=== PATIENT | female | born 1955 | race Caucasian/White ===

== ENCOUNTER 2016-03-05 13:57 | Emergency (ER) | payer MEDICAID ==
[2016-03-05] MEDS ORDERED: LIDOCAINE 1% INJ-PF (10 MG/ML) 30 ML SDV INJ ONE (15:29)
[2016-03-05] MEDS ORDERED: CEFAZOLIN 1 GM/D5W RTU 50 ML IV ONE (15:31)
[2016-03-05] MEDS ORDERED: OXYCODONE HCL SR 10 MG TABLET PO ONE (15:31)
--- NOTE | 2016-03-05 15:31 | ER Document Report ---
ED General - General Chief Complaint: Laceration Stated Complaint: LEG PAIN Notes: This is a 61-year-old female with history of diabetes, chronic venous stasis, pulmonary hypertension on oxygen who presents with a large laceration left anterior leg. Patient states she was getting down out of the truck and cut her leg on the car door. She was cut to her pain leg. She denies any other injuries. Last tetanus is unknown. She complains of throbbing pain. TRAVEL OUTSIDE OF THE [place] IN LAST 30 DAYS: No - Related Data Allergies/Adverse Reactions: Sulfa (Sulfonamide Antibiotics) Allergy (Verified 02/18/16 03:50) Past Medical History - Social History Smoking Status: Current Every Day Smoker Frequency of alcohol use: None Drug Abuse: None Lives with: Family Family History: COPD, Hypertension - Past Medical History Cardiac Medical History: Reports: Hx Congestive Heart Failure, Hx Hypertension Pulmonary Medical History: Reports: Hx COPD - O2 dependent COPD Endocrine Medical History: Reports: Hx Diabetes Mellitus Type 2 Musculoskeltal Medical History: Reports Hx Gout Psychiatric Medical History: Reports: Hx Depression Past Surgical History: Reports: Hx Section, Hx Hysterectomy, Hx Orthopedic Surgery - Bilateral carpal tunnel surgery, back surgery., Hx Vascular Surgery - Bilateral carotid endarterectomies - Immunizations Hx Diphtheria, Pertussis, Tetanus Vaccination: Yes Review of Systems - Review of Systems Constitutional: denies: Fever EENT: denies: Throat pain Cardiovascular: denies: Chest pain, Syncope Respiratory: denies: Short of breath Genitourinary: No symptoms reported Musculoskeletal: Leg swelling Skin: Rash Neurological/Psychological: denies: Numbness, Suicidal ideation, Tingling Physical Exam - Vital signs Vitals: Resp 16 03/05/16 14:03 - General General appearance: Appears well, Alert In distress: None - HEENT Head: Normocephalic, Atraumatic Conjunctiva: Normal - Respiratory Respiratory status: No respiratory distress Breath sounds: Normal - Cardiovascular Rhythm: Regular - Abdominal Inspection: Normal - Extremities General upper extremity: Normal inspection General lower extremity: Edema - The patient has significant erythema and brawny edema of bilateral lower legs, not involving the feet, there is mild warmth, there is a small amount of weeping of clear fluid which is expressed with gentle pressure on the legs. Patient states these findings are chronic for her. There are 2 large lacerations on the anterior lower left leg as described below Foot: Normal - Neurological Neuro grossly intact: Yes Orientation: AAOx4 Sensory: Normal - Skin Skin Temperature: Warm Skin Moisture: Dry Notes: There are 2 large lacerations on the left anterior lower leg totaling 8 cm in length. Both are deep and gaping. There is no exposed bony material. There is exposed subcutaneous tissue. There is no active bleeding but there is a small amount of oozing and weeping around the wound edges. Course - Re-evaluation Re-evalutation: 03/05/16 20:05 Patient unfortunately is a diabetic very poor circulation and chronically erythematous thin weeping skin on the lower extremities. She sustained some deep gash is today. I copiously irrigated the wounds and approximated the wound edges. I've given a dose of IV antibiotics as well as by mouth antibiotics. Have instructed her on home wound care strict return precautions. I have warned her that there is a high likelihood of wound complication giving her comorbidities. Patient expressed an understanding and she will return at the first sign of any infection. 03/05/16 20:08 68 - Vital Signs Vital signs: Temp Pulse Resp BP Pulse Ox 98.7 F 92 16 108/55 L 93 03/05/16 17:45 03/05/16 17:45 03/05/16 17:45 03/05/16 17:45 03/05/16 17:45 Procedures - Laceration/Wound Repair Left Leg Time completed: 16:50 Wound length (cm): 8 Wound's Depth, Shape: Into muscle, Linear Laceration pre-procedure: Sterile PPE donned, Sterile drapes applied, Shur- Clens applied Anesthetic type: 1% Lidocaine Volume Anesthetic (mLs): 10 Irrigated w/ Saline (mLs): 1,000 Wound Repaired With: Sutures Suture Size/Type: 4:0 Number of Sutures: 10 Layer Closure?: No Post-procedure NV exam normal: Yes Complications: No Discharge - Discharge Clinical Impression: Laceration of leg Qualifiers: Encounter type: initial encounter Laterality: left Qualified Code(s): S81.812A - Laceration without foreign body, left lower leg, initial encounter Condition: Good Disposition: HOME, SELF-CARE Instructions: Antibiotic Ointment Protection ([facility]), Prophylactic Antibiotic ( [facility]), Laceration Care ([facility]), Tetanus Immunization Given ([facility]), Soap Cleansing ( [facility]) Additional Instructions: This is a high-risk wound it is important that you cleanse and dress wound daily. Inspect wound for any signs of infection such as increased redness, warmth, drainage, tenderness or if you develop a fever. Return to the emergency department immediately if you're concerned about any wound infection. It is important that you follow-up with a wound care clinic. Please discuss with your primary care physician as soon as possible for your referral. Prescriptions: Cephalexin Monohydrate [Keflex 500 mg Capsule] 500 mg PO QID #20 capsule Referrals: BENNETT ALDRICH NP [Primary Care Provider] - Follow up as needed
[2016-03-05] MEDS ORDERED: DIPH/PERTUSS(ACELL)/TETANUS VAC/PF 0.5 ML SYR (>=10YO) IM ONE (16:49)
[2016-03-05 18:13] VITALS: BP 108/55
== END 2016-03-05 17:45 | disposition home or self-care (01) ==
LOC: ER 13:57
PROC: 0HQLXZZ Repair Left Lower Leg Skin, External Approach (ICD-10-PCS; principal; 2016-03-05)
DX: S81.812A Laceration without foreign body, left lower leg, initial encounter (principal); W45.8XXA Other foreign body or object entering through skin, initial encounter; E11.9 Type 2 diabetes mellitus without complications; I10 Essential (primary) hypertension; I50.9 Heart failure, unspecified; F17.200 Nicotine dependence, unspecified, uncomplicated; Z99.81 Dependence on supplemental oxygen; Z88.2 Allergy status to sulfonamides; Z23 Encounter for immunization; Z90.710 Acquired absence of both cervix and uterus
CPT/HCPCS: 12004; 99283; 90471; 96365; 90715; J0690; J3490 ×2

== ENCOUNTER → 2016-09-04 | Outpatient (CLI) | payer MEDICAID ==
--- NOTE | 2016-09-04 16:38 | XCELERA REPORT ---
[address] [address] Lower Extremity Arterial Evaluation Name: TAI FAN Age: 61 yrs Gender: Female : 1955 Patient Status: Outpatient Patient Location: Study Date: 09/04/2016 08:53 AM Procedure: A color flow and duplex scan of the lower extremity arteries was performed bilaterally with velocity and waveform anaylsis. Reason For Study: ULCER Ordering Physician: KATELYN BAILEY Performed By: Marsha Maradiaga Measurements and Calculations Right Left Prox PFA PSV 140.6 173.0 cm/sec Prox SFA PSV 179.9 190.8 cm/sec Mid SFA PSV 188.4 138.6 cm/sec Dist SFA PSV 184.0 185.5 cm/sec Prox Pop A PSV 133.0 152.0 cm/sec Dist DANNY PSV 102.0 123.4 cm/sec Dist SKETCHER PSV 107.0 121.7 cm/sec Nikolas Pedis PSV 92.4 63.2 cm/sec Right Side Arterial Evaluation Normal velocity and triphasic waveforms noted from the Common Femoral artery to the infrageniculate vessels. 0 % stenosis noted. Ankle Brachial index was not done due to wounds, bandages.. Left Side Arterial Evaluation Normal velocity and triphasic waveforms noted from the Common Femoral artery to the infrageniculate vessels. 0 % stenosis noted. Ankle Brachial index was not done due to wounds, bandages.. Interpretation Summary No hemodynamically significant lesions in the bilateral lower extremities, on duplex imaging, at rest. : KATELYN BAILEY > Sridhar Choi
== END ==
LOC: SP 08:45
PROVIDERS: ATTEND Nurse Practitioner Family
DX: L97.212 Non-pressure chronic ulcer of right calf with fat layer exposed (principal); L97.211 Non-pressure chronic ulcer of right calf limited to breakdown of skin
CPT/HCPCS: 93925

== ENCOUNTER 2017-01-09 15:09 | Emergency (ER) | payer MEDICAID ==
[2017-01-09] MEDS ORDERED: IPRATROPIUM/ALBUTEROL 0.5-2.5 MG/3 ML AMPUL NEB ONE (15:33)
--- NOTE | 2017-01-09 15:51 | ER Document Report ---
ED Wound - General Chief Complaint: Wound Infection Stated Complaint: RIGHT LEG PAIN Time Seen by Provider: 01/09/17 15:40 TRAVEL OUTSIDE OF THE [place] IN LAST 30 DAYS: No - HPI Patient complains to provider of: Wound infection Occurred: Other - 1 month Onset/Duration: Gradual, Persistent, Worse Quality of pain: Achy Severity: Moderate Pain Level: 3 Context: Spontaneous Skin Color: Erythema Sensations intact: Yes Distal pulses present: Yes Associated Symptoms: Drainage, Redness, Swelling Notes: Patient is a 61-year-old female with a history of pulmonary hypertension, COPD who continues to smoke, presents to the emergency room on recommendation from her primary care provider for evaluation of a nonhealing wound to her right lower extremity, states it has been there for approximately a month and has been worsening with increased drainage, erythema and swelling to surrounding area, she completed a course of Augmentin 10 days with no improvement of symptoms, she is noted to be hypoxic with wheezing in all wilder in triage area and was immediately taken to her room to receive an albuterol treatment, she denies any actual shortness of breath at this time, stating that she is always short of breath, and she is more concerned about the wound on her right lower extremity - Related Data Allergies/Adverse Reactions: Sulfa (Sulfonamide Antibiotics) Allergy (Verified 02/18/16 03:50) Past Medical History - General Information source: Patient - Social History Smoking Status: Current Every Day Smoker Family History: COPD, Hypertension - Past Medical History Cardiac Medical History: Reports: Hx Congestive Heart Failure, Hx Hypertension Pulmonary Medical History: Reports: Hx COPD - O2 dependent COPD Endocrine Medical History: Reports: Hx Diabetes Mellitus Type 2 Musculoskeltal Medical History: Reports Hx Gout Psychiatric Medical History: Reports: Hx Depression Past Surgical History: Reports: Hx Section, Hx Hysterectomy, Hx Orthopedic Surgery - Bilateral carpal tunnel surgery, back surgery., Hx Vascular Surgery - Bilateral carotid endarterectomies - Immunizations Hx Diphtheria, Pertussis, Tetanus Vaccination: Yes Review of Systems - Review of Systems Constitutional: No symptoms reported EENT: No symptoms reported Cardiovascular: No symptoms reported Respiratory: Cough, Wheezing Gastrointestinal: No symptoms reported Genitourinary: No symptoms reported Female Genitourinary: No symptoms reported Musculoskeletal: No symptoms reported Skin: See HPI Hematologic/Lymphatic: No symptoms reported Neurological/Psychological: No symptoms reported -: Yes All other systems reviewed and negative Physical Exam - Vital signs Vitals: Resp Pulse Ox 14 87 L 01/09/17 16:04 01/09/17 16:04 Interpretation: Normal - General General appearance: Appears well, Alert In distress: None Notes: Smells of cigarettes - HEENT Head: Normocephalic, Atraumatic Eyes: Normal Pupils: PERRL - Respiratory Respiratory status: No respiratory distress Chest status: Nontender Breath sounds: Nonproductive cough, Wheezing Chest palpation: Normal - Cardiovascular Rhythm: Regular Heart sounds: Normal auscultation Murmur: No - Abdominal Inspection: Normal Distension: No distension Bowel sounds: Normal Tenderness: Nontender Organomegaly: No organomegaly - Back Back: Normal, Nontender - Extremities General upper extremity: Normal inspection, Nontender, Normal color, Normal ROM , Normal temperature General lower extremity: Normal ROM. No: Radhika's sign Notes: On the lateral portion of the right lower extremity just proximal to the lateral malleolus there is a 2 cm ulceration with erythema surrounding that is circumferential, with mild edema and tenderness to palpate, no active drainage at this time, distal sensation and motor is intact with 2+ DP pulses - Neurological Neuro grossly intact: Yes Cognition: Normal Orientation: AAOx4 [place] Coma Scale Eye Opening: Spontaneous Rashi Coma Scale Verbal: Oriented [place] Coma Scale Motor: Obeys Commands Rashi Coma Scale Total: 15 Speech: Normal Motor strength normal: LUE, RUE, LLE, RLE Sensory: Normal - Psychological Associated symptoms: Normal affect, Normal mood - Skin Skin Temperature: Warm Skin Moisture: Dry Skin Color: Normal Course - Re-evaluation Re-evalutation: 01/09/17 17:47 Lab and imaging findings were discussed with patient at bedside which are relatively unremarkable, she does have a history of COPD and pulmonary hypertension, continues to smoke, her main complaint today is nonhealing wound to her right lower extremity, she is completed a course of Augmentin for this but symptoms have worsened slightly, patient has no leukocytosis or signs of sepsis, therefore she was given a dose of clindamycin in the emergency department and will be discharged with prescription for same as well as instructions for follow-up and advised to return if any additional concerns, patient agreement with this plan - Vital Signs Vital signs: Temp Pulse Resp BP Pulse Ox 21 H 121/53 L 94 01/09/17 16:46 01/09/17 16:46 01/09/17 16:46 - Laboratory Result Diagrams: 01/09/17 15:35 01/09/17 15:35 Laboratory results interpreted by me: 01/09/17 01/09/17 01/09/17 15:35 15:35 15:35 Hgb 11.3 L MCV 70 L MCH 21.8 L MCHC 31.2 L RDW 23.7 H Seg Neutrophils % 83.7 H Lymphocytes % 8.4 L VBG HCO3 35.1 H Chloride 94 L Carbon Dioxide 36 H BUN 25 H Est GFR ( Amer) 56 L Est GFR (Non-Af Amer) 47 L Glucose 123 H AST 10 L Total Protein 6.0 L Albumin 3.4 L - Diagnostic Test Radiology reviewed: Image reviewed, Reports reviewed Discharge - Discharge Clinical Impression: Cellulitis of right lower extremity, Nonhealing nonsurgical wound Condition: Stable Disposition: HOME, SELF-CARE Instructions: Cellulitis ([facility]), Foot or Leg Ulcer ([facility]), Soap Cleansing ([facility]), Ulcer ([facility]) Additional Instructions: Follow up with your primary care provider in one to 2 days. Return to the emergency room immediately if symptoms worsen or any additional concerns. Follow-up with a global implementation manager and the wound care clinic for further evaluation and treatment. Prescriptions: Clindamycin HCl [Cleocin 150 mg Capsule] 450 mg PO Q6 10 Days capsule Referrals: BENNETT ALDRICH NP [Primary Care Provider] - Follow up as needed ANATOLIY PRECIADO DPM [ACTIVE STAFF] - Follow up as needed
[2017-01-09 15:55] LABS: ABSOLUTE EOSINOPHILS # (AUTO) 0.1 10^3/uL (0.0-0.6); ABSOLUTE LYMPHOCYTES (AUTO) 0.6 10^3/uL (0.5-4.7); ABSOLUTE MONOCYTES (AUTO) 0.4 10^3/uL (0.1-1.4); BASOPHILS % (AUTO) 0.6 % (0-2); HEMATOCRIT 36.4 % (36.0-47.0); HEMOGLOBIN 11.3 g/dL (12.0-15.5); HGB HCT DIFFERENCE -2.5; LYMPHOCYTES % (AUTO) 8.4 % (13-45); MEAN CORPUSCULAR HEMOGLOBIN 21.8 pg (27.0-33.4); MEAN CORPUSCULAR HGB CONC 31.2 g/dL (32.0-36.0); MEAN CORPUSCULAR VOLUME 70 fl (80-97); MONOCYTES % (AUTO) 5.3 % (3-13); RED BLOOD COUNT 5.21 10^6/uL (3.72-5.28); RED CELL DISTRIBUTION WIDTH 23.7 % (11.5-14.0); SEGMENTED NEUTROPHILS % (AUTO) 83.7 % (42-78); WHITE BLOOD COUNT 7.2 10^3/uL (4.0-10.5)
[2017-01-09] MEDS ORDERED: CLINDAMYCIN 600 MG/D5W RTU 600 MG/50 ML RTUPB IV ONE (16:05)
[2017-01-09 16:10] LABS: VENOUS BLOOD BASE EXCESS 8.6 mmol/L; VENOUS BLOOD HCO3 35.1 mmol/L (20-32); VENOUS BLOOD PCO2 57.9 mmHg (35-63); VENOUS BLOOD PH 7.4 (7.30-7.42)
[2017-01-09 16:17] LABS: ALANINE AMINOTRANSFERASE 27 U/L (9-52); ALBUMIN 3.4 g/dL (3.5-5.0); ALKALINE PHOSPHATASE 123 U/L (38-126); ANION GAP 13 (5-19); ASPARTATE AMINO TRANSFERASE 10 U/L (14-36); BILIRUBIN,DIRECT 0.4 mg/dL (0.0-0.4); BILIRUBIN,TOTAL 0.5 mg/dL (0.2-1.3); BLOOD UREA NITROGEN 25 mg/dL (7-20); CALCIUM 9.3 mg/dL (8.4-10.2); CARBON DIOXIDE 36 mmol/L (22-30); CHLORIDE 94 mmol/L (98-107); CREATININE RESULT 1.18 mg/dL (0.52-1.25); GLUCOSE 123 mg/dL (75-110); SODIUM 142.8 mmol/L (137-145)
--- NOTE | 2017-01-09 16:35 | RADIOLOGY REPORT (SQ) ---
EXAM DESCRIPTION: CHEST PA/LAT COMPLETED DATE/TIME: 01/09/2017 4:27 pm REASON FOR STUDY: db COMPARISON: 02/17/2016 EXAM PARAMETERS: NUMBER OF VIEWS: two views TECHNIQUE: Digital Frontal and Lateral radiographic views of the chest acquired. RADIATION DOSE: NA LIMITATIONS: none FINDINGS: LUNGS AND PLEURA: There is increased opacification posteriorly inferiorly on lateral view. No definite infiltrate is seen PA. MEDIASTINUM AND HILAR STRUCTURES: No masses or contour abnormalities. HEART AND VASCULAR STRUCTURES: Borderline cardiomegaly with pulmonary vascular congestion yumiko failu re. BONES: No acute findings. HARDWARE: None in the chest. OTHER: No other significant finding. IMPRESSION: 1. Borderline cardiomegaly without failure. 2. Cannot exclude a lower lobe pneumonia. TECHNICAL DOCUMENTATION: JOB ID: [id number] [employer] All Rights Reserved
--- NOTE | 2017-01-09 17:42 | RADIOLOGY REPORT (SQ) ---
EXAM DESCRIPTION: TIBIA FIBULA RIGHT COMPLETED DATE/TIME: 01/09/2017 5:05 pm REASON FOR STUDY: soft tissue infection COMPARISON: None. NUMBER OF VIEWS: Two views. TECHNIQUE: Two radiographic images acquired of the right tibia and fibula to include the knee and an kle in at least one projection. LIMITATIONS: None. FINDINGS: MINERALIZATION: Osteopenia. BONES: There is fragmentation of the medial tibial plateau that does not appear to be acute, especial ly in the absence of a history of trauma. Prominent trochlear and posterior patellar osteophytes are present SOFT TISSUES: No obvious swelling or foreign body. OTHER: No other significant finding. IMPRESSION: There is fragmentation of the medial tibial plateau that appears to be old, but certainl y osteomyelitis cannot be excluded. Patellofemoral degenerative joint changes are present. TECHNICAL DOCUMENTATION: JOB ID: [id number] [employer]- All Rights Reserved
[2017-01-09 19:10] VITALS: BP 113/56
== END 2017-01-09 19:00 | disposition home or self-care (01) ==
LOC: ER 15:09
DX: L03.115 Cellulitis of right lower limb (principal); T81.89XA Other complications of procedures, not elsewhere classified, initial encounter; Z98.890 Other specified postprocedural states; M79.604 Pain in right leg; I27.20 Pulmonary hypertension, unspecified; J44.9 Chronic obstructive pulmonary disease, unspecified; F17.200 Nicotine dependence, unspecified, uncomplicated; I50.9 Heart failure, unspecified
CPT/HCPCS: 94640; 99283; 96365; 36415; 87040; 87070; 87205; 85025; 80053; 87186; 82803; 83605; 71020; 73590; S0077; J7620

== ENCOUNTER → 2017-02-03 | Outpatient (CLI) | payer MEDICAID ==
[2017-02-03 08:25] LABS: ABSOLUTE EOSINOPHILS # (AUTO) 0.1 10^3/uL (0.0-0.6); ABSOLUTE LYMPHOCYTES (AUTO) 0.8 10^3/uL (0.5-4.7); ABSOLUTE MONOCYTES (AUTO) 0.3 10^3/uL (0.1-1.4); ABSOLUTE NEUT (AUTO) 3.8 10^3/uL (1.7-8.2); BASOPHILS % (AUTO) 0.6 % (0-2); EOSINOPHILS % (AUTO) 2.8 % (0-6); HEMATOCRIT 37.2 % (36.0-47.0); HEMOGLOBIN 11.3 g/dL (12.0-15.5); HGB HCT DIFFERENCE -3.3; LYMPHOCYTES % (AUTO) 16.5 % (13-45); MEAN CORPUSCULAR HEMOGLOBIN 21.4 pg (27.0-33.4); MEAN CORPUSCULAR HGB CONC 30.4 g/dL (32.0-36.0); MEAN CORPUSCULAR VOLUME 70 fl (80-97); MONOCYTES % (AUTO) 5.2 % (3-13); RED BLOOD COUNT 5.29 10^6/uL (3.72-5.28); RED CELL DISTRIBUTION WIDTH 23.4 % (11.5-14.0); SEGMENTED NEUTROPHILS % (AUTO) 74.9 % (42-78); WHITE BLOOD COUNT 5.1 10^3/uL (4.0-10.5)
[2017-02-03 08:42] LABS: ALANINE AMINOTRANSFERASE 24 U/L (9-52); ALBUMIN 3.5 g/dL (3.5-5.0); ALKALINE PHOSPHATASE 126 U/L (38-126); ANION GAP 11 (5-19); ASPARTATE AMINO TRANSFERASE 11 U/L (14-36); BILIRUBIN,DIRECT 0.2 mg/dL (0.0-0.4); BILIRUBIN,TOTAL 0.5 mg/dL (0.2-1.3); BLOOD UREA NITROGEN 21 mg/dL (7-20); CALCIUM 8.9 mg/dL (8.4-10.2); CARBON DIOXIDE 36 mmol/L (22-30); CHLORIDE 95 mmol/L (98-107); CHOLESTEROL 85.99 mg/dL (0-200); CREATININE RESULT 1.26 mg/dL (0.52-1.25); Direct HDL 39 mg/dL (>40); GLUCOSE 143 mg/dL (75-110); MAGNESIUM 2.2 mg/dL (1.6-2.3); POTASSIUM 3.7 mmol/L (3.6-5.0); SODIUM 141.7 mmol/L (137-145); TOTAL PROTEIN 5.9 g/dL (6.3-8.2); TRIGLYCERIDES 102 mg/dL (<150); URIC ACID 5.5 mg/dL (2.5-7.5)
[2017-02-03 08:53] LABS: DIRECT LDL 35 mg/dL (<100)
[2017-02-04 11:39] LABS: CREATININE URINE 57.4 mg/dL (Not Estab.); MICROALBUMIN URINE 22.4 ug/mL (Not Estab.)
== END ==
LOC: OD 07:24
PROVIDERS: ATTEND Family Medicine Geriatric Medicine
DX: L03.119 Cellulitis of unspecified part of limb (principal); E11.622 Type 2 diabetes mellitus with other skin ulcer; I50.9 Heart failure, unspecified; E78.5 Hyperlipidemia, unspecified; J44.9 Chronic obstructive pulmonary disease, unspecified; J30.89 Other allergic rhinitis; E83.42 Hypomagnesemia; K21.9 Gastro-esophageal reflux disease without esophagitis; H40.9 Unspecified glaucoma; M1A.9XX0 Chronic gout, unspecified, without tophus (tophi); I65.23 Occlusion and stenosis of bilateral carotid arteries; M54.5 Low back pain; M25.552 Pain in left hip; M25.551 Pain in right hip; M25.562 Pain in left knee; G89.4 Chronic pain syndrome; E66.9 Obesity, unspecified; Z68.33 Body mass index [BMI] 33.0-33.9, adult
CPT/HCPCS: 36415; 80053; 80061; 82043; 82570; 83036; 83735; 84443; 84550; 85025

== ENCOUNTER → 2017-04-06 | Outpatient (CLI) | payer MEDICAID ==
--- NOTE | 2017-04-06 11:43 | RADIOLOGY REPORT (SQ) ---
EXAM DESCRIPTION: SACRUM AND COCCYX COMPLETED DATE/TIME: 04/06/2017 11:15 am REASON FOR STUDY: LOW BACK PAIN M54.5 LOW BACK PAIN COMPARISON: None. NUMBER OF VIEWS: Three views. TECHNIQUE: AP, lateral, and tilt views of the sacrum and coccyx. LIMITATIONS: None. FINDINGS: MINERALIZATION: Normal. BONES: Sacrum and coccyx are unremarkable. SI joints unremarkable. Degenerative changes at L4-5 and L5-S1. SOFT TISSUES: No soft tissue swelling. No foreign body. OTHER: No other significant finding. IMPRESSION: Lower lumbar degenerative changes. No findings in the sacrum and coccyx. TECHNICAL DOCUMENTATION: JOB ID: [id number] [employer]- All Rights Reserved
--- NOTE | 2017-04-06 11:46 | RADIOLOGY REPORT (SQ) ---
EXAM DESCRIPTION: LUMBAR SPINE COMPLETE COMPLETED DATE/TIME: 04/06/2017 11:15 am REASON FOR STUDY: LOW BACK PAIN M54.5 LOW BACK PAIN COMPARISON: CT scan 02/18/2016 NUMBER OF VIEWS: Five views including obliques. TECHNIQUE: AP, lateral, oblique, and sacral radiographic images acquired of the lumbar spine. LIMITATIONS: None. FINDINGS: MINERALIZATION: Osteopenia. SEGMENTATION: Normal. No transitional anatomy. ALIGNMENT: Anterolisthesis of L3 on L4 and L4 on L5. VERTEBRAE: Compression fracture of L5 which is progressed since the CT scan and 2016. DISCS: Diffuse degenerative disc disease at L3-4, L4-5, L5-S1. POSTERIOR ELEMENTS: Pedicles and facets are intact. No pars defect or posterior arch defects. HARDWARE: None in the spine. PARASPINAL SOFT TISSUES: Normal. PELVIS: Intact as visualized. No fractures or worrisome bone lesions. SI joints intact. OTHER: No other significant finding. IMPRESSION: Progression of L5 compression fractures since prior imaging. Anterolisthesis of L3 on L4 and L4 on L5. Diffuse degenerative disc disease L3-4, L4-5, L5-S1. COMMENT: Consider MRI for assessment for possible kyphoplasty. TECHNICAL DOCUMENTATION: JOB ID: [id number] [employer]- All Rights Reserved
== END ==
LOC: OD 10:42
PROVIDERS: ATTEND Family Medicine Geriatric Medicine
DX: M54.5 Low back pain (principal); M51.37 Other intervertebral disc degeneration, lumbosacral region
CPT/HCPCS: 72110; 72220

== ENCOUNTER → 2017-04-09 | Outpatient (CLI) | payer MEDICAID ==
--- NOTE | 2017-04-09 09:21 | RADIOLOGY REPORT (SQ) ---
EXAM DESCRIPTION: CAROTID DOPPLER COMPLETED DATE/TIME: 04/09/2017 8:56 am REASON FOR STUDY: STENOSIS I65.23 OCCLUSION AND STENOSIS OF BILATERAL CAROTID ARTERIES COMPARISON: None. TECHNIQUE: Grayscale ultrasound, Doppler velocity and spectra, and color Doppler images acquired of the extra-cranial carotid and vertebral arteries. Images stored on PACS. LIMITATIONS: None. FINDINGS: RIGHT CAROTID CCA Velocities: Within normal limits. ICA Velocities Peak systolic 1.32 m/s. End diastolic 0.47 m/s. Proximal ICA/CCA peak systolic ratio 1.1. Intimal thickening. LEFT CAROTID CCA Velocities: Within normal limits. ICA Velocities Peak systolic 1.78 m/s. End diastolic 0.52 m/s. Proximal ICA/CCA peak systolic ratio 1.4. Intimal thickening. VERTEBRAL ARTERIES: Antegrade flow. Normal waveforms. SUBCLAVIAN ARTERIES: Not imaged. OTHER: No other significant finding. IMPRESSION: Less than 50% stenosis bilaterally. COMMENT: Quality ID #[id number]: Velocity criteria are extrapolated from the diameter data as defined by t he Society of Radiologists in Ultrasound Consensus Conference. Radiology 2003: 229; 340-346. TECHNICAL DOCUMENTATION: JOB ID: [id number] [employer]- All Rights Reserved
== END ==
LOC: SP 07:28
PROVIDERS: ATTEND Family Medicine Geriatric Medicine
DX: I65.23 Occlusion and stenosis of bilateral carotid arteries (principal)
CPT/HCPCS: 93880

== ENCOUNTER → 2017-08-24 | Outpatient (CLI) | payer MEDICAID ==
--- NOTE | 2017-08-31 09:05 | WOMENS IMAGING REPORT ---
EXAM DESCRIPTION: BILAT SCREENING MAMMO W/CAD COMPLETED DATE/TIME: 08/24/2017 10:58 am REASON FOR STUDY: SCREENING MAMMO Z12.31 ENCNTR SCREEN MAMMOGRAM FOR MALIGNANT NEOPLASM OF RENZO COMPARISON: No previous available for comparison TECHNIQUE: Standard craniocaudal and mediolateral oblique views of each breast recorded using digita l acquisition. LIMITATIONS: None. FINDINGS: Findings present which are benign by mammographic criteria. No suspicious masses, calcifi cations or architectural distortion. Pertinent benign findings: Benign-appearing breast parenchymal calcifications bilaterally. Read with the assistance of CAD. .[facility] - R2 Cenova Version 1.3 .[facility] Imaging - R2 Cenova Version 1.3 .[facility] - R2 Cenova Version 2.4 .[facility] - R2 Cenova Version 2.4 .[facility] - R2 Coper Hand Version 9.2 Benign mammographic findings may include one or more of the following: Smooth masses, popcorn/rim/co arse calcifications, asymmetries, post-procedure changes, and lesions with long-standing stability. IMPRESSION: BENIGN MAMMOGRAPHIC FINDINGS. BIRADS 2 BREAST DENSITY: b. There are scattered areas of fibroglandular density. BIRAD: 2 BENIGN FINDING(S) RECOMMENDATION: ROUTINE SCREENING Please continue yearly bilateral screening mammography/tomosynthesis in August 2018 COMMENT: The patient has been notified of the results by letter per SA requirements. Additional no tification policies are in place for contacting patient with suspicious or incomplete findings. Quality ID #225: The [employer] recommends an annual screening mammogram for women aged 40 years or over. This facility utilizes a reminder system to ensure that all patients receive reminder letters, and/or direct phone calls for appointments. This includes reminders for routine scr eening mammograms, diagnostic mammograms, or other Breast Imaging Interventions when appropriate. Th is patient will be placed in the appropriate reminder system. The [employer] (ACR) has developed recommendations for screening MRI of the breast s in certain patient populations, to be used in conjunction with mammography. Breast MRI surveillanc e may be appropriate for women with more than 20% lifetime risk of developing breast cancer as deter mined by genetic testing, significant family history of the disease, or history of mantle radiation f or Hodgkins Disease. ACR Practice Guidelines 2008. TECHNICAL DOCUMENTATION: FINDING NUMBER: (1) ASSESSMENT: (1) JOB ID: [id number] [employer]- All Rights Reserved Reading location - IP/workstation name: [email or web address]
== END ==
LOC: WI 10:02
PROVIDERS: ATTEND Family Medicine Geriatric Medicine
DX: Z12.31 Encounter for screening mammogram for malignant neoplasm of breast (principal)
CPT/HCPCS: 77067

== ENCOUNTER 2017-10-12 11:15 | Inpatient (IN) | payer MEDICAID ==
[2017-10-12 12:33] LABS: VENOUS BLOOD BASE EXCESS 8.8 mmol/L; VENOUS BLOOD PCO2 60.9 mmHg (35-63); VENOUS BLOOD PH 7.39 (7.30-7.42)
[2017-10-12 12:34] LABS: ABSOLUTE EOSINOPHILS # (AUTO) 0.2 10^3/uL (0.0-0.6); ABSOLUTE LYMPHOCYTES (AUTO) 1.1 10^3/uL (0.5-4.7); ABSOLUTE MONOCYTES (AUTO) 0.5 10^3/uL (0.1-1.4); ABSOLUTE NEUT (AUTO) 5.2 10^3/uL (1.7-8.2); BASOPHILS % (AUTO) 0.4 % (0-2); EOSINOPHILS % (AUTO) 2.9 % (0-6); HEMATOCRIT 40.5 % (36.0-47.0); HEMOGLOBIN 12.8 g/dL (12.0-15.5); LYMPHOCYTES % (AUTO) 15.1 % (13-45); MEAN CORPUSCULAR HGB CONC 31.7 g/dL (32.0-36.0); MEAN CORPUSCULAR VOLUME 79 fl (80-97); MONOCYTES % (AUTO) 7.7 % (3-13); PLATELET COUNT 156 10^3/uL (150-450); RED BLOOD COUNT 5.13 10^6/uL (3.72-5.28); RED CELL DISTRIBUTION WIDTH 22.2 % (11.5-14.0); SEGMENTED NEUTROPHILS % (AUTO) 73.9 % (42-78); TOTAL CELLS COUNTED % (AUTO) 100 %
[2017-10-12 12:41] LABS: ALANINE AMINOTRANSFERASE 17 U/L (9-52); ALBUMIN 3.6 g/dL (3.5-5.0); ALKALINE PHOSPHATASE 90 U/L (38-126); ANION GAP 13 (5-19); ASPARTATE AMINO TRANSFERASE 12 U/L (14-36); BILIRUBIN,DIRECT 0.3 mg/dL (0.0-0.4); BILIRUBIN,TOTAL 0.6 mg/dL (0.2-1.3); BLOOD UREA NITROGEN 35 mg/dL (7-20); CALCIUM 9.1 mg/dL (8.4-10.2); CARBON DIOXIDE 32 mmol/L (22-30); CHLORIDE 96 mmol/L (98-107); GLUCOSE 56 mg/dL (75-110); POTASSIUM 4.3 mmol/L (3.6-5.0); SODIUM 140.9 mmol/L (137-145); TOTAL PROTEIN 6.3 g/dL (6.3-8.2)
[2017-10-12] MEDS ORDERED: DEXTROSE 50%-WATER 25 GM/50 ML DISP.SYRIN IV ONE (12:43)
[2017-10-12 12:47] LABS: INTERNATIONAL RATION (INR) 0.96; PROTHROMBIN TIME 13.3 SEC (11.4-15.4)
[2017-10-12] MEDS ORDERED: IPRATROPIUM/ALBUTEROL 0.5-2.5 MG/3 ML AMPUL NEB ONE (13:11)
--- NOTE | 2017-10-12 13:23 | RADIOLOGY REPORT (SQ) ---
EXAM DESCRIPTION: CT HEAD WITHOUT COMPLETED DATE/TIME: 10/12/2017 1:08 pm REASON FOR STUDY: confusion COMPARISON: No prior brain imaging TECHNIQUE: Axial images acquired through the brain without intravenous contrast. Images reviewed wi th bone, brain and subdural windows. Additional sagittal and coronal reconstructions were generated. Images stored on PACS. All CT scanners at this facility use dose modulation, iterative reconstruction, and/or weight based d osing when appropriate to reduce radiation dose to as low as reasonably achievable (ALARA). [facility]: Dose Right [facility]: CareDose [facility]: Dose Right [facility]: Teradose 4D [facility]: MedeAnalytics RADIATION DOSE: CT Rad equipment meets quality standard of care and radiation dose reduction techniq ues were employed. CTDIvol: 53.2 mGy. DLP: 1070 mGy-cm. mGy. LIMITATIONS: Mild motion artifact FINDINGS: VENTRICLES: Normal size and contour. CEREBRUM: No masses. No hemorrhage. No midline shift. No evidence for acute infarction. Normal gra y/white matter differentiation. No areas of low density in the white matter. CEREBELLUM: No masses. No hemorrhage. No alteration of density. No evidence for acute infarction. EXTRAAXIAL SPACES: No fluid collections. No masses. ORBITS AND GLOBE: No intra- or extraconal masses. Normal contour of globe without masses. CALVARIUM: No fracture. PARANASAL SINUSES: No fluid or mucosal thickening. SOFT TISSUES: No mass or hematoma. OTHER: No other significant finding. IMPRESSION: NORMAL BRAIN CT WITHOUT CONTRAST. EVIDENCE OF ACUTE STROKE: NO. COMMENT: Quality ID # 436: Final reports with documentation of one or more dose reduction techniques (e.g., Automated exposure control, adjustment of the mA and/or kV according to patient size, use of iterative reconstruction technique) TECHNICAL DOCUMENTATION: JOB ID: [id number] [employer]- All Rights Reserved Reading location - IP/workstation name: [facility]-[email or web address]
--- NOTE | 2017-10-12 13:34 | RADIOLOGY REPORT (SQ) ---
EXAM DESCRIPTION: CHEST 2 VIEWS COMPLETED DATE/TIME: 10/12/2017 1:24 pm REASON FOR STUDY: fever COMPARISON: Chest films 01/09/2017, 02/17/2016 CT chest 02/18/2016 EXAM PARAMETERS: NUMBER OF VIEWS: two views TECHNIQUE: Digital Frontal and Lateral radiographic views of the chest acquired. RADIATION DOSE: NA LIMITATIONS: none FINDINGS: LUNGS AND PLEURA: There is bandlike collapse and consolidation of the right middle lobe wi th loss of discrete right heart border. Increased interstitial markings are present in the mid and lower lungs from mild interstitial edema o r mild pulmonary fibrosis. No pleural effusions. No pneumothorax. MEDIASTINUM AND HILAR STRUCTURES: No masses or contour abnormalities. HEART AND VASCULAR STRUCTURES: Stable cardiomegaly BONES: No acute findings. HARDWARE: None in the chest. OTHER: No other significant finding. IMPRESSION: Right middle lobe collapse and consolidation worrisome for pneumonia. Stable cardiomegaly Mild increased interstitial markings at both bases likely pulmonary fibrosis. Minimal interstitial p ulmonary edema could not excluded TECHNICAL DOCUMENTATION: JOB ID: [id number] [employer]- All Rights Reserved Reading location - IP/workstation name: [facility] [[email or web address]]
[2017-10-12] MEDS ORDERED: FENTANYL CITRATE INJ/PF 100 MCG/2 ML AMPUL IV ONE (13:45)
[2017-10-12] MEDS ORDERED: VANCOMYCIN HCL INJ 1000 MG VIAL IV ONE (13:47)
[2017-10-12] MEDS ORDERED: CEFTRIAXONE INJ 1000 MG VIAL IV ONE (13:47)
[2017-10-12] MEDS ORDERED: AZITHROMYCIN INJ 500 MG VIAL IV ONE (13:47)
--- NOTE | 2017-10-12 13:55 | ER Document Report ---
ED General - General Chief Complaint: Altered Mental Status Stated Complaint: ALTERED MENTAL STATUS Time Seen by Provider: 10/12/17 11:29 TRAVEL OUTSIDE OF THE [place] IN LAST 30 DAYS: No - HPI Patient complains to provider of: Confusion Onset: Other - This 62-year-old female with a history of multiple medical comorbidities including COPD with oxygen dependency chronically on 2 L as well as heart failure diabetes and hypertension presents for evaluation of marked hypoxia and confusion this morning. Her brother called her and noted that she was markedly confused and then called EMS upon arrival they noted that her oxygen saturation was approximately 75% on CPAP. She denies any complaints other than shortness of breath at this time does endorse a cough and some chest tightness. She has had episodes like this in the past which her brother sedates have been attributed to her difficulty in breathing. - Related Data Allergies/Adverse Reactions: Sulfa (Sulfonamide Antibiotics) Allergy (Verified 02/18/16 03:50) Past Medical History - General Information source: Patient, Relative - Social History Smoking Status: Current Every Day Smoker Frequency of alcohol use: None Drug Abuse: None Family History: COPD, Hypertension Patient has suicidal ideation: No Patient has homicidal ideation: No - Past Medical History Cardiac Medical History: Reports: Hx Congestive Heart Failure, Hx Hypertension Pulmonary Medical History: Reports: Hx COPD - O2 dependent COPD Endocrine Medical History: Reports: Hx Diabetes Mellitus Type 2 Renal/ Medical History: Denies: Hx Peritoneal Dialysis Musculoskeletal Medical History: Reports Hx Gout Psychiatric Medical History: Reports: Hx Depression Past Surgical History: Reports: Hx Section, Hx Hysterectomy, Hx Orthopedic Surgery - Bilateral carpal tunnel surgery, back surgery., Hx Vascular Surgery - Bilateral carotid endarterectomies - Immunizations Hx Diphtheria, Pertussis, Tetanus Vaccination: Yes Review of Systems - Review of Systems -: Yes All other systems reviewed and negative Physical Exam - Vital signs Vitals: Temp Pulse Resp BP Pulse Ox 99.6 F 107 H 20 134/66 H 81 L 10/12/17 11:15 10/12/17 11:15 10/12/17 11:15 10/12/17 11:15 10/12/17 11:15 - General General appearance: Anxious In distress: Moderate - HEENT Head: Normocephalic Eyes: Normal Conjunctiva: Normal Cornea: Normal Ears: Normal Nasal: Normal Mouth/Lips: Normal Pharynx: Normal Neck: Normal - Respiratory Respiratory status: Respiratory distress Chest status: Nontender Breath sounds: Wheezing Chest palpation: Normal - Cardiovascular Rhythm: Tachycardia Murmur: No - Abdominal Inspection: Normal, Morbidly Obese Distension: No distension - Back Back: Normal - Extremities General upper extremity: Normal inspection General lower extremity: Edema - +2 pitting edema to the level of the knee bilaterally - Neurological Neuro grossly intact: Yes Cognition: Inattentive, Short term memory loss Orientation: Disoriented to time, Disoriented to events Railroad Coma Scale Eye Opening: Spontaneous Railroad Coma Scale Verbal: Oriented Railroad Coma Scale Motor: Obeys Commands Railroad Coma Scale Total: 15 - Psychological Associated symptoms: Normal affect Course - Re-evaluation Re-evalutation: 10/12/17 19:11 This 62-year-old female presented for evaluation of marked altered mental status as well as hypoxia. On examination she is in modest distress with marked tachypnea wheezes in all lung wilder and some swelling in the lower extremities. She is likely been hypoxic over the last 3 days according EMS is no note heard from her during that time and she may have taken off her oxygen accidentally while attempting to smoke. Applied oxygen, increased to 4 L, subsequently increased to 5 L as patient's hypoxia persisted, administered a breathing treatment for patient which did improve her oxygen saturation to the low 90s. Patient was noted to be hypoglycemic as well with a blood sugar in the low 50s, administered D 50 through the IV. As the patient is confused and does have risk factors for thromboembolic disease will obtain CT had, EKG, chest x-ray, CBC BMP VBG as well as a urinalysis. Chest x-ray demonstrates an obvious infiltrate which is likely consistent with a pneumonia which is developed for this patient, her CT head is reassuring that she is likely not had an embolic event, BMP ABG and CBC are as documented. Current plan will be for treating this patient has potentially MRSA pneumonia. Have contacted hospitalist for the admission of this patient as I am concerned that she is at high risk for decompensation. She will likely require at least stepdown level care. I did speak to the patient about her advance care directive at this time she is a full code she is uncertain whether or not she would want CPR or to be ventilated. She states that she will think about it and make a definitive decision soon. The hospitalist is agreed to evaluate this patient for admission. Defer diuretics for this patient I believe that this is likely primarily COPD and pneumonia exacerbation underlying her illness. - Vital Signs Vital signs: Temp Pulse Resp BP Pulse Ox 97.9 F 98 18 107/56 L 93 10/12/17 17:18 10/12/17 17:30 10/12/17 17:18 10/12/17 17:18 10/12/17 17:18 - Laboratory Result Diagrams: 10/12/17 11:34 10/12/17 11:34 Laboratory results interpreted by me: 10/12/17 10/12/17 10/12/17 11:34 11:34 11:34 MCV 79 L MCH 25.0 L MCHC 31.7 L RDW 22.2 H VBG HCO3 36.0 H Chloride 96 L Carbon Dioxide 32 H BUN 35 H Creatinine 1.64 H Est GFR ( Amer) 38 L Est GFR (Non-Af Amer) 32 L Glucose 56 L POC Glucose AST 12 L Urine Nitrite Ur Leukocyte Esterase 10/12/17 10/12/17 10/12/17 12:50 13:29 14:02 MCV MCH MCHC RDW VBG HCO3 Chloride Carbon Dioxide BUN Creatinine Est GFR ( Amer) Est GFR (Non-Af Amer) Glucose POC Glucose 51 L 116 H AST Urine Nitrite POSITIVE H Ur Leukocyte Esterase TRACE H Critical Care Note - Critical Care Note Total time excluding time spent on procedures (mins): 30 Discharge - Discharge Clinical Impression: Hypoxia Pneumonia Qualifiers: Pneumonia type: due to unspecified organism Laterality: left Lung location: unspecified part of lung Qualified Code(s): J18.9 - Pneumonia, unspecified organism COPD (chronic obstructive pulmonary disease) Qualifiers: COPD type: unspecified COPD Qualified Code(s): J44.9 - Chronic obstructive pulmonary disease, unspecified Condition: Poor Disposition: ADMITTED INPATIENT Admitting Provider: Hospitalist Unit Admitted: [facility]
[2017-10-12 14:56] LABS: APPEARANCE,URINE SLIGHTLY-CLOUDY; BILIRUBIN,URINE NEGATIVE (NEGATIVE); COLOR,URINE YELLOW; GLUCOSE, URINE NEGATIVE (NEGATIVE); KETONES,URINE NEGATIVE (NEGATIVE); LEUKOCYTE ESTERASE,URINE TRACE (NEGATIVE); NITRITE,URINE POSITIVE (NEGATIVE); PROTEIN,URINE NEGATIVE (NEGATIVE); URINE SPECIFIC GRAVITY 1.008; UROBILINOGEN,URINE NEGATIVE mg/dL (<2.0)
[2017-10-12] MEDS: METHYLPREDNISOLONE INJ 40 MG/1 ML SDV IV SCH (18:04)
[2017-10-12] MEDS: OXYCODONE HCL IR 5 MG TABLET PO PRN (18:04)
[2017-10-12] MEDS ORDERED: GLUCAGON,HUMAN RECOMB 1 MG INJ IM PRN (18:40)
[2017-10-12] MEDS ORDERED: DEXTROSE 40% GEL 15 GM TUBE PO PRN ×2 (18:40)
[2017-10-12] MEDS ORDERED: DEXTROSE 50%-WATER 25 GM/50 ML DISP.SYRIN IV PRN ×2 (18:40)
[2017-10-12] MEDS ORDERED: NICOTINE 10 MG IH PRN (18:45)
--- NOTE | 2017-10-12 18:57 | PDOC H&P ---
History of Present Illness Admission Date/PCP: 10/12/17 14:58 MARGRET SCOTT MD Patient complains of: Shortness of breath History of Present Illness: TAI FAN is a 62 year old female with a past medical history of COPD on 2 L of home oxygen oxygen, congestive heart failure, chronic smoker, CKD 3, obstructive sleep apnea on CPAP at home and insulin-dependent diabetes mellitus who presented with increasing shortness of breath. Patient says that she has been having progressive shortness of breath in the past 3 days associated with occasional wheezing. She only had minimal cough. She says she used her home inhalers which only gave her partial relief. She denies any fever or chills. No palpitations. Denies chest pain. Denies recent sick contacts or travel. She was brought in by EMS she was saturating at 70% on 2 L of NC. She was given breathing treatments in the ER and this improved her O2 sats to 92% on 4 L of nasal cannula. She was initially confused but upon encounter in the ER, patient was back to her baseline and was coherent and oriented 3. Past Medical History Cardiac Medical History: Reports: Congestive Heart Failure, Hypertension Pulmonary Medical History: Reports: Chronic Obstructive Pulmonary Disease (COPD ) - O2 dependent COPD Endocrine Medical History: Reports: Diabetes Mellitus Type 2 Musculoskeltal Medical History: Reports: Gout Psychiatric Medical History: Reports: Depression Past Surgical History Past Surgical History: Reports: Section, Hysterectomy, Orthopedic Surgery - Bilateral carpal tunnel surgery, back surgery., Vascular Surgery - Bilateral carotid endarterectomies Social History Smoking Status: Current Every Day Smoker Cigarettes Packs Per Day: 1.5 Frequency of Alcohol Use: None Hx Recreational Drug Use: No Drugs: None Hx Prescription Drug Abuse: No Family History Family History: COPD, Hypertension Parental Family History Reviewed: Yes - no [place] Children Family History Reviewed: No Sibling(s) Family History Reviewed.: No Medication/Allergy Home Medications: Allopurinol [Zyloprim 300 mg Tablet] 300 mg PO DAILY 10/12/17 Atorvastatin Calcium [Lipitor 80 mg Tablet] 80 mg PO DAILY 10/12/17 Bupropion HCl [Bupropion HCl Sr] 100 mg PO Q12 10/12/17 Ergocalciferol (Vitamin D2) [Drisdol 50,000 unit (1.25MG) Capsule] 50,000 unit PO NIEVES@1000 10/12/17 Fluticasone Propionate [Flonase Nasal Callaway 50 Mcg/Callaway 16 gm] 2 spray NASL DAILY 10/12/17 Fluticasone/Salmeterol [Advair 500-50 Diskus 14 Dose/Diskus] 1 puff IH Q12 10/12 Gabapentin [Neurontin 300 mg Capsule] 600 mg PO Q6 10/12/17 Insulin Glargine,Hum.rec.anlog [Lantus Solostar] 70 unit SQ QAM 10/12/17 Latanoprost [Xalatan 0.005% Oph Soln 2.5 ml] 1 drop OU QHS 10/12/17 Magnesium Oxide [Mag-Ox 400 mg Tablet] 400 mg PO BID 10/12/17 Nicotine Polacrilex [Nicorette] 2 mg PO Q4HP PRN 10/12/17 Nicotine [Nicotrol] 10 mg IH Q3HP PRN 10/12/17 Omeprazole 40 mg PO DAILY 10/12/17 Oxycodone HCl [Oxycodone HCl 10 MG Tablet] 10 mg PO Q6HP PRN 10/12/17 Pregabalin [Lyrica 75 mg Capsule] 75 mg PO Q12 10/12/17 Ranitidine HCl [Zantac 150 mg Tablet] 150 mg PO QHS 10/12/17 Roflumilast [Daliresp 500 mcg Tablet] 500 mcg PO DAILY 10/12/17 Torsemide 100 mg PO DAILY 10/12/17 Allergies/Adverse Reactions: Sulfa (Sulfonamide Antibiotics) Allergy (Verified 02/18/16 03:50) Review of Systems All systems: reviewed and no additional remarkable complaints except as stated - as mentioned in HPI. Physical Exam Vital Signs: Temp Pulse Resp BP Pulse Ox 97.9 F 98 18 107/56 L 93 10/12/17 17:18 10/12/17 17:30 10/12/17 17:18 10/12/17 17:18 10/12/17 17:18 Intake & Output 10/11/17 10/12/17 10/13/17 06:59 06:59 06:59 Weight 308 lb 10.354 oz General appearance: PRESENT: no acute distress, well-developed, well-nourished Head exam: PRESENT: atraumatic, normocephalic Eye exam: PRESENT: conjunctival injection Neck exam: ABSENT: carotid bruit, JVD, lymphadenopathy, thyromegaly Respiratory exam: PRESENT: other - No use of accessory muscles, decreased breath sounds bilaterally with occasional wheezing, no crackles or rales. Cardiovascular exam: PRESENT: RRR. ABSENT: diastolic murmur, rubs, systolic murmur Pulses: PRESENT: normal dorsalis pedis pul GI/Abdominal exam: PRESENT: normal bowel sounds, soft. ABSENT: distended, guarding, mass, organolmegaly, rebound, tenderness Rectal exam: PRESENT: deferred Results Impressions: Head CT 10/12/17 11:30 IMPRESSION: NORMAL BRAIN CT WITHOUT CONTRAST. EVIDENCE OF ACUTE STROKE: NO. Chest X-Ray 10/12/17 12:34 IMPRESSION: Right middle lobe collapse and consolidation worrisome for pneumonia. Stable cardiomegaly Mild increased interstitial markings at both bases likely pulmonary fibrosis. Minimal interstitial pulmonary edema could not excluded Assessment & Plan - Diagnosis (1) Acute on chronic respiratory failure with hypoxia and hypercapnia Is this a current diagnosis for this admission?: Yes Plan: This is secondary to acute exacerbation of patient's COPD. She does use home oxygen at 2 L. Patient is currently saturating at 94% on 2 L. We will switch her to BiPAP if she continues to desaturate. VBG shows a PCO2 of 61. (2) COPD exacerbation Is this a current diagnosis for this admission?: Yes Plan: Patient did present with wheezing in the ER. After breathing treatments, patient continues to have decreased breath sounds bilaterally with scattered wheezes. We will give 2 more breathing treatments. Will give patient on IV steroids. Continue scheduled breathing treatments every 4 hours. Will empirically start patient on azithromycin and Rocephin. (3) Acute renal failure Is this a current diagnosis for this admission?: Yes Plan: Patient's creatinine went up from 1.26-1.64. Will go ahead with cautious fluid hydration. Will hold torsemide for now. Repeat BMP tomorrow morning. (4) Insulin dependent diabetes mellitus Is this a current diagnosis for this admission?: Yes Plan: Patient is on Lantus 70 units daily at home. Noted sugars which are running in the low normal side. Will start Lantus at half the dose of 35 units daily. Will also start sliding scale. Continue blood sugar monitoring. (5) CKD stage 3 due to type 2 diabetes mellitus Is this a current diagnosis for this admission?: Yes Plan: Creatinine has went up from 1.26-1.64. Will be cautious with gentle fluid hydration due to patient's aphasia. Hold torsemide for now. (6) CHF (congestive heart failure) Is this a current diagnosis for this admission?: Yes Plan: No previous echo on record, possible systolic heart failure?. Hold torsemide for now. Patient does appear clinically dry at the moment. Continue INRs. (7) GARY (obstructive sleep apnea) Is this a current diagnosis for this admission?: Yes Plan: Place patient BiPAP at night. - Time Time Spent: 50 to 70 Minutes
[2017-10-12] MEDS: IPRATROPIUM/ALBUTEROL 0.5-2.5 MG/3 ML AMPUL NEB SCH (20:30)
[2017-10-12] MEDS: ATORVASTATIN CALCIUM 80 MG TABLET PO SCH (21:41)
[2017-10-12] MEDS: HEPARIN SOD (PORCINE) 5,000 UNIT/ML 1 ML SYRINGE SUBCUT SCH (21:41)
[2017-10-12] MEDS: NORMAL SALINE 1000 ML 1,000 ML IV PRN (21:42)
[2017-10-12] MEDS ORDERED: (PENDING PHARMACY ID) (Bupropion Hcl [Bupropion Hcl Sr] 100 MG) PO SCH (22:00)
[2017-10-12] MEDS: INSULIN LISPRO 100 UNIT/ML 3 ML VIAL SUBCUT PRN (22:02)
--- NOTE | 2017-10-12 22:53 | EKG REPORT ---
SEVERITY:- BORDERLINE ECG - SINUS RHYTHM BORDERLINE R WAVE PROGRESSION, ANTERIOR LEADS : Confirmed by: Elle Escalante 12-Oct-2017 22:52:48
[2017-10-13] MEDS ORDERED: KETOROLAC TROMETHAMINE INJ/PF 30 MG/1 ML SDV INJ PRN (00:21)
[2017-10-13] MEDS: GABAPENTIN 300 MG CAPSULE PO SCH ×5 (00:27→23:02)
[2017-10-13] MEDS: BUPROPION HCL 100 MG TABLET PO SCH ×5 (00:27→23:00)
[2017-10-13] MEDS: IPRATROPIUM/ALBUTEROL 0.5-2.5 MG/3 ML AMPUL NEB SCH ×4 (01:44→20:04)
[2017-10-13] MEDS: METHYLPREDNISOLONE INJ 40 MG/1 ML SDV IV SCH ×3 (02:33→17:40)
[2017-10-13] MEDS: OXYCODONE HCL IR 5 MG TABLET PO PRN ×4 (05:08→23:09)
[2017-10-13] MEDS: LANSOPRAZOLE 30 MG TAB.RAP.DR PO SCH (05:09)
[2017-10-13] MEDS: HEPARIN SOD (PORCINE) 5,000 UNIT/ML 1 ML SYRINGE SUBCUT SCH ×3 (05:09→23:00)
[2017-10-13] MEDS: INSULIN LISPRO 100 UNIT/ML 3 ML VIAL SUBCUT PRN ×4 (08:01→23:07)
[2017-10-13] MEDS ORDERED: CEFTRIAXONE 1 GM/D5W RTU 1 GM/50 ML RTUPB IV SCH (10:00)
[2017-10-13] MEDS ORDERED: ACETAMINOPHEN 325 MG TABLET PO ONE (10:00)
[2017-10-13] MEDS ORDERED: (PENDING PHARMACY ID) (Torsemide [Torsemide] 100 MG) PO SCH (10:00)
[2017-10-13] MEDS: TORSEMIDE 20 MG TABLET PO SCH (10:53)
[2017-10-13] MEDS: AZITHROMYCIN 250 MG TABLET PO SCH (10:54)
[2017-10-13] MEDS: INSULIN GLARGINE,HUM.REC.ANLOG 300 UNIT/3 ML INSULN.PEN SUBCUT SCH (10:54)
[2017-10-13] MEDS: ALLOPURINOL 300 MG TABLET PO SCH (10:54)
[2017-10-13] MEDS: FLUTICASONE NASAL SPRAY 50 MCG/SPRY 120 SPRAY/16 GM NASL SCH (10:57)
[2017-10-13] MEDS ORDERED: CEFTRIAXONE SODIUM 1,000 MG in NORMAL SALINE 50 ML IV SCH (12:00)
[2017-10-13] MEDS: NORMAL SALINE 1000 ML 1,000 ML IV PRN (17:50)
[2017-10-13] MEDS: ATORVASTATIN CALCIUM 80 MG TABLET PO SCH (23:00)
[2017-10-14] MEDS: IPRATROPIUM/ALBUTEROL 0.5-2.5 MG/3 ML AMPUL NEB SCH ×2 (01:08→08:44)
[2017-10-14] MEDS: METHYLPREDNISOLONE INJ 40 MG/1 ML SDV IV SCH ×2 (02:51→10:38)
[2017-10-14] MEDS: HEPARIN SOD (PORCINE) 5,000 UNIT/ML 1 ML SYRINGE SUBCUT SCH (05:39)
[2017-10-14] MEDS: GABAPENTIN 300 MG CAPSULE PO SCH (05:40)
[2017-10-14] MEDS: OXYCODONE HCL IR 5 MG TABLET PO PRN (05:40)
[2017-10-14] MEDS: LANSOPRAZOLE 30 MG TAB.RAP.DR PO SCH (05:41)
[2017-10-14] MEDS: BUPROPION HCL 100 MG TABLET PO SCH (05:41)
[2017-10-14 05:54] LABS: BASOPHILS % (AUTO) 0.1 % (0-2); EOSINOPHILS % (AUTO) 1.6 % (0-6); HEMATOCRIT 40.7 % (36.0-47.0); HEMOGLOBIN 12.7 g/dL (12.0-15.5); LYMPHOCYTES % (AUTO) 3.4 % (13-45); MEAN CORPUSCULAR HEMOGLOBIN 24.7 pg (27.0-33.4); MEAN CORPUSCULAR HGB CONC 31.3 g/dL (32.0-36.0); MEAN CORPUSCULAR VOLUME 79 fl (80-97); MONOCYTES % (AUTO) 1.6 % (3-13); PLATELET COUNT 140 10^3/uL (150-450); RED BLOOD COUNT 5.16 10^6/uL (3.72-5.28); RED CELL DISTRIBUTION WIDTH 21.8 % (11.5-14.0); SEGMENTED NEUTROPHILS % (AUTO) 94.8 % (42-78); WHITE BLOOD COUNT 6.6 10^3/uL (4.0-10.5)
[2017-10-14 05:55] LABS: ABSOLUTE LYMPHOCYTES (AUTO) 0.2 10^3/uL (0.5-4.7); ABSOLUTE MONOCYTES (AUTO) 0.1 10^3/uL (0.1-1.4); ABSOLUTE NEUT (AUTO) 6.3 10^3/uL (1.7-8.2)
[2017-10-14 05:57] LABS: ABSOLUTE BASOPHILS # (AUTO) 0.1 10^3/uL (0.0-0.2)
[2017-10-14 05:59] LABS: ABSOLUTE LYMPHOCYTES# (MANUAL) 0.2 10^3/uL (0.5-4.7); ABSOLUTE MONOCYTES # (MANUAL) 0.1 10^3/uL (0.1-1.4); ABSOLUTE NEUTROPHILS# (MANUAL) 6.3 10^3/uL (1.7-8.2); ALANINE AMINOTRANSFERASE 19 U/L (9-52); ALBUMIN 3.3 g/dL (3.5-5.0); ALKALINE PHOSPHATASE 98 U/L (38-126); ANION GAP 15 (5-19); ASPARTATE AMINO TRANSFERASE 11 U/L (14-36); BASOPHILS % (MANUAL) 0 % (0-2); BILIRUBIN,DIRECT 0.3 mg/dL (0.0-0.4); BILIRUBIN,TOTAL 0.5 mg/dL (0.2-1.3); BLOOD UREA NITROGEN 38 mg/dL (7-20); CALCIUM 8.9 mg/dL (8.4-10.2); CARBON DIOXIDE 26 mmol/L (22-30); CHLORIDE 100 mmol/L (98-107); EOSINOPHILS % (MANUAL) 0 % (0-6); GLUCOSE 277 mg/dL (75-110); LYMPHOCYTES % (MANUAL) 3 % (13-45); MONOCYTES % (MANUAL) 1 % (3-13); PHOSPHORUS 3.9 mg/dL (2.5-4.5); POTASSIUM 4.7 mmol/L (3.6-5.0); SEGMENTED NEUTROPHILS % (MAN) 96 % (42-78); SODIUM 140.6 mmol/L (137-145); TOTAL CELLS COUNTED 100; TOTAL PROTEIN 5.7 g/dL (6.3-8.2); TOXIC GRANULATION SLIGHT
[2017-10-14 06:00] LABS: ANISOCYTOSIS 3+; OVALOCYTES 1+; PLATELET COMMENT ADEQUATE; POIKILOCYTOSIS SLIGHT; POLYCHROMASIA SLIGHT; SCHISTOCYTES SLIGHT
[2017-10-14] MEDS: INSULIN LISPRO 100 UNIT/ML 3 ML VIAL SUBCUT PRN (07:48)
--- NOTE | 2017-10-14 08:42 | PDOC PROGRESS REPORT ---
Subjective Progress Note for:: 10/13/17 Subjective:: There is a 62-year-old female past medical history of COPD chronic kidney disease obstructive sleep apnea. Hypertension and type 2 diabetes patient presented with COPD exacerbation of lower extremity edema. Overnight patient explained that she has been doing well she sleeps well she is eating well and she denies any constipation diarrhea or any urinary symptom patient said that she is ready to go home she is living with her sister who can take care of her. Patient denies any chest pain shortness of breath fever chills nausea vomiting diarrhea constipation or any urinary symptoms. Reason For Visit: COPD EXACERBATION Physical Exam Vital Signs: Temp Pulse Resp BP Pulse Ox 97.9 F 96 18 134/55 H 90 L 10/13/17 07:14 10/13/17 08:00 10/13/17 08:00 10/13/17 07:14 10/13/17 08:00 Intake & Output 10/12/17 10/13/17 10/14/17 06:59 06:59 06:59 Intake Total 442 Balance 442 Weight 81.6 kg General appearance: PRESENT: no acute distress, well-developed, well-nourished Head exam: PRESENT: atraumatic, normocephalic Eye exam: PRESENT: conjunctiva pink, EOMI, PERRLA. ABSENT: scleral icterus Ear exam: PRESENT: normal external ear exam Mouth exam: PRESENT: moist, tongue midline Neck exam: ABSENT: carotid bruit, JVD, lymphadenopathy, thyromegaly Respiratory exam: PRESENT: clear to auscultation antonio. ABSENT: rales, rhonchi, wheezes Cardiovascular exam: PRESENT: RRR. ABSENT: diastolic murmur, rubs, systolic murmur Pulses: PRESENT: normal dorsalis pedis pul Vascular exam: PRESENT: normal capillary refill GI/Abdominal exam: PRESENT: normal bowel sounds, soft. ABSENT: distended, guarding, mass, organolmegaly, rebound, tenderness Rectal exam: PRESENT: deferred Extremities exam: PRESENT: full ROM. ABSENT: calf tenderness, clubbing, pedal edema Musculoskeletal exam: PRESENT: dislocation, full ROM Neurological exam: PRESENT: alert, awake, oriented to person, oriented to place , oriented to time, oriented to situation, CN II-XII grossly intact. ABSENT: motor sensory deficit Psychiatric exam: PRESENT: appropriate affect, normal mood. ABSENT: homicidal ideation, suicidal ideation Skin exam: PRESENT: dry, intact, warm. ABSENT: cyanosis, rash Results Impressions: Head CT 10/12/17 11:30 IMPRESSION: NORMAL BRAIN CT WITHOUT CONTRAST. EVIDENCE OF ACUTE STROKE: NO. Chest X-Ray 10/12/17 12:34 IMPRESSION: Right middle lobe collapse and consolidation worrisome for pneumonia. Stable cardiomegaly Mild increased interstitial markings at both bases likely pulmonary fibrosis. Minimal interstitial pulmonary edema could not excluded Assessment & Plan - Diagnosis (1) COPD (chronic obstructive pulmonary disease) Qualifiers: COPD type: COPD with acute exacerbation Qualified Code(s): J44.1 - Chronic obstructive pulmonary disease with (acute) exacerbation Is this a current diagnosis for this admission?: Yes Plan: Switch to oral steroids. Continue antibiotics. Continue supplemental oxygen and overnight BiPAP respiratory therapist on board. (2) COPD exacerbation Is this a current diagnosis for this admission?: Yes Plan: We will switch to oral steroids continue respiratory treatments continue supplemental oxygen and overnight BiPAP (3) Insulin dependent diabetes mellitus Is this a current diagnosis for this admission?: Yes Plan: Continue sliding-scale insulin regimen will adjust dosage as needed (4) CKD stage 3 due to type 2 diabetes mellitus Is this a current diagnosis for this admission?: Yes Plan: Creatinine trending down electrolytes within normal limits will monitor volume status and electrolytes and replace as needed. (5) GARY (obstructive sleep apnea) Is this a current diagnosis for this admission?: Yes Plan: Patient using BiPAP at home and she is also on supplemental oxygen will continue supplemental oxygen and BiPAP while in the hospital (6) Urinary tract infection Qualifiers: Urinary tract infection type: site unspecified Hematuria presence: without hematuria Qualified Code(s): N39.0 - Urinary tract infection, site not specified Is this a current diagnosis for this admission?: Yes Plan: Urine is positive for gram-negative rods pending S and S. Will continue ceftriaxone will switch to p.o. antibiotics once s/s available. - Time Time Spent with patient: 35 or more minutes
[2017-10-14 10:27] VITALS: BP 134/66
[2017-10-14] MEDS: TORSEMIDE 20 MG TABLET PO SCH (10:36)
[2017-10-14] MEDS: INSULIN GLARGINE,HUM.REC.ANLOG 300 UNIT/3 ML INSULN.PEN SUBCUT SCH (10:37)
[2017-10-14] MEDS: FLUTICASONE NASAL SPRAY 50 MCG/SPRY 120 SPRAY/16 GM NASL SCH (10:37)
[2017-10-14] MEDS: AZITHROMYCIN 250 MG TABLET PO SCH (10:38)
[2017-10-14] MEDS: ALLOPURINOL 300 MG TABLET PO SCH (10:38)
--- NOTE | 2017-10-14 19:22 | PDOC DISCHARGE SUMMARY ---
General - Admit/Disc Date/PCP Admission Date/Primary Care Provider: 10/12/17 14:58 MARGRET SCOTT MD Discharge Date: 10/14/17 - Discharge Diagnosis (1) COPD (chronic obstructive pulmonary disease) Is this a current diagnosis for this admission?: Yes (2) Insulin dependent diabetes mellitus Is this a current diagnosis for this admission?: Yes (3) CKD stage 3 due to type 2 diabetes mellitus Is this a current diagnosis for this admission?: Yes (4) GARY (obstructive sleep apnea) Is this a current diagnosis for this admission?: Yes (5) Urinary tract infection Is this a current diagnosis for this admission?: Yes - Additional Information Discharge Diet: Cardiac, Diabetic Discharge Activity: Activity As Tolerated, Balance Activity w/Rest, Energy Conservation, Weigh Daily Prescriptions: Levofloxacin [Levaquin 500 mg Tablet] 500 mg PO DAILY #5 tablet Prednisone 40 mg PO DAILY #4 tablet Home Medications: Allopurinol [Zyloprim 300 mg Tablet] 300 mg PO DAILY 10/12/17 Atorvastatin Calcium [Lipitor 80 mg Tablet] 80 mg PO DAILY 10/12/17 Bupropion HCl [Bupropion HCl Sr] 100 mg PO Q12 10/12/17 Ergocalciferol (Vitamin D2) [Drisdol 50,000 unit (1.25MG) Capsule] 50,000 unit PO NIEVES@1000 10/12/17 Fluticasone Propionate [Flonase Nasal [place] 50 Mcg/[place] 16 gm] 2 spray NASL DAILY 10/12/17 Fluticasone/Salmeterol [Advair 500-50 Diskus 14 Dose/Diskus] 1 puff IH Q12 10/12 Gabapentin [Neurontin 300 mg Capsule] 600 mg PO Q6 10/12/17 Insulin Glargine,Hum.rec.anlog [Lantus Solostar] 70 unit SQ QAM 10/12/17 Latanoprost [Xalatan 0.005% Oph Soln 2.5 ml] 1 drop OU QHS 10/12/17 Magnesium Oxide [Mag-Ox 400 mg Tablet] 400 mg PO BID 10/12/17 Nicotine Polacrilex [Nicorette] 2 mg PO Q4HP PRN 10/12/17 Nicotine [Nicotrol] 10 mg IH Q3HP PRN 10/12/17 Omeprazole 40 mg PO DAILY 10/12/17 Oxycodone HCl [Oxycodone HCl 10 MG Tablet] 10 mg PO Q6HP PRN 10/12/17 Pregabalin [Lyrica 75 mg Capsule] 75 mg PO Q12 10/12/17 Ranitidine HCl [Zantac 150 mg Tablet] 150 mg PO QHS 10/12/17 Roflumilast [Daliresp 500 mcg Tablet] 500 mcg PO DAILY 10/12/17 Torsemide 100 mg PO DAILY 10/12/17 Levofloxacin [Levaquin 500 mg Tablet] 500 mg PO DAILY #5 tablet 10/14/17 Prednisone 40 mg PO DAILY #4 tablet 10/14/17 History of Present Illness History of Present Illness: TAI FAN is a 62 year old female past medical history of COPD, congestive heart failure, chronic smoker, CKD stage III, obstructive sleep apnea on CPAP at home, and diabetes mellitus. Patient presents with increasing shortness of breath for the last 3 days associated with wheezing. Minimal cough. Patient was admitted to the hospital for diagnosis of COPD exacerbation and acute on CKD. Diabetes Hospital Course Hospital Course: Blood culture and urine culture were obtained blood culture was negative after 48 hours however urine culture came back positive for Klebsiella pneumonia, pansensitive except resistant to ampicillin. Initially patient was placed on ceftriaxone and subsequently transitioned to p.o. levofloxacin. Patient will also started on Solu-Medrol then transitioned to p.o. prednisone for COPD exacerbation. Patient has history of CKD on admission creatinine was 1.6 on discharge 1.2 during hospitalization electrolytes remained within normal limits. Patient was discharged on 10/14/2017, ceftriaxone was transitioned to levofloxacin to complete a course of 1 week patient was also given 2 more days of prednisone 40 mg. 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 ABSENT: scleral icterus Ear exam: PRESENT: normal external ear exam Mouth exam: PRESENT: moist, tongue midline Neck exam: ABSENT: carotid bruit, JVD, lymphadenopathy, thyromegaly Respiratory exam: PRESENT: clear to auscultation antonio. ABSENT: rales, rhonchi, wheezes Cardiovascular exam: PRESENT: RRR. ABSENT: diastolic murmur, rubs, systolic murmur Pulses: PRESENT: normal dorsalis pedis pul Vascular exam: PRESENT: normal capillary refill GI/Abdominal exam: PRESENT: normal bowel sounds, soft. ABSENT: distended, guarding, mass, organolmegaly, rebound, tenderness Rectal exam: PRESENT: deferred Extremities exam: PRESENT: full ROM. ABSENT: calf tenderness, clubbing, pedal edema Neurological exam: PRESENT: alert, awake, oriented to person, oriented to place , oriented to time, oriented to situation, CN II-XII grossly intact. ABSENT: motor sensory deficit Psychiatric exam: PRESENT: appropriate affect, normal mood. ABSENT: homicidal ideation, suicidal ideation Skin exam: PRESENT: dry, intact, warm. ABSENT: cyanosis, rash Results Laboratory Results: 10/14/17 05:05 10/14/17 05:05 10/14/17 10/14/17 05:05 05:05 WBC 6.6 RBC 5.16 Hgb 12.7 Hct 40.7 MCV 79 L MCH 24.7 L MCHC 31.3 L RDW 21.8 H Plt Count 140 L Seg Neutrophils % 94.8 H Lymphocytes % 3.4 L Monocytes % 1.6 L Eosinophils % 1.6 Basophils % 0.1 Absolute Neutrophils 6.3 Absolute Lymphocytes 0.2 L Absolute Monocytes 0.1 Absolute Eosinophils 0.0 Absolute Basophils 0.1 Sodium 140.6 Potassium 4.7 Chloride 100 Carbon Dioxide 26 Anion Gap 15 BUN 38 H Creatinine 1.20 Est GFR ( Amer) 55 L Est GFR (Non-Af Amer) 46 L Glucose 277 H Calcium 8.9 Phosphorus 3.9 Magnesium 2.3 Total Bilirubin 0.5 AST 11 L ALT 19 Alkaline Phosphatase 98 Total Protein 5.7 L Albumin 3.3 L Impressions: Head CT 10/12/17 11:30 IMPRESSION: NORMAL BRAIN CT WITHOUT CONTRAST. EVIDENCE OF ACUTE STROKE: NO. Chest X-Ray 10/12/17 12:34 IMPRESSION: Right middle lobe collapse and consolidation worrisome for pneumonia. Stable cardiomegaly Mild increased interstitial markings at both bases likely pulmonary fibrosis. Minimal interstitial pulmonary edema could not excluded Qualifiers - * PATIENT BEING DISCHARGED WITH ANY OF THE FOLLOWING DIAGNOSIS: No Stroke Pt being discharged on Anti-thrombolytic therapy?: Yes
== END 2017-10-14 12:30 | disposition home or self-care (01) | DRG 189 ==
LOC: ER 11:15 → EH 14:58 → 3W 17:12
PROVIDERS: ADMIT Internal Medicine; ATTEND Internal Medicine
DX: J96.22 Acute and chronic respiratory failure with hypercapnia (principal); J44.1 Chronic obstructive pulmonary disease with (acute) exacerbation; N17.9 Acute kidney failure, unspecified; N39.0 Urinary tract infection, site not specified; I13.0 Hypertensive heart and chronic kidney disease with heart failure and stage 1 through stage 4 chronic kidney disease, or unspecified chronic kidney disease; J96.21 Acute and chronic respiratory failure with hypoxia; I50.9 Heart failure, unspecified; N18.3 Chronic kidney disease, stage 3 (moderate); E11.22 Type 2 diabetes mellitus with diabetic chronic kidney disease; B96.1 Klebsiella pneumoniae [K. pneumoniae] as the cause of diseases classified elsewhere; G47.33 Obstructive sleep apnea (adult) (pediatric); F17.210 Nicotine dependence, cigarettes, uncomplicated; Z99.81 Dependence on supplemental oxygen; Z79.4 Long term (current) use of insulin; Z79.891 Long term (current) use of opiate analgesic; Z79.51 Long term (current) use of inhaled steroids; Z79.899 Other long term (current) drug therapy
CPT/HCPCS: 36415; 70450; 71046; 80053; 81001; 82803; 82962; 83605; 83735; 83880; 84100; 85025; 85610; 87040; 87086; 87088; 87186; 93005; 93010; 94640; 94660; 96365; 96375; 99291; J0456; J0696; J1644; J1815; J1885; J2920; J3010; J3370; J3490; J7030; J7620

== ENCOUNTER → 2017-12-15 | Outpatient (CLI) | payer MEDICAID ==
[2017-12-15 12:43] LABS: ABSOLUTE EOSINOPHILS # (AUTO) 0.2 10^3/uL (0.0-0.6); ABSOLUTE LYMPHOCYTES (AUTO) 0.7 10^3/uL (0.5-4.7); ABSOLUTE MONOCYTES (AUTO) 0.3 10^3/uL (0.1-1.4); ABSOLUTE NEUT (AUTO) 3.6 10^3/uL (1.7-8.2); BASOPHILS % (AUTO) 0.5 % (0-2); EOSINOPHILS % (AUTO) 3.5 % (0-6); HEMATOCRIT 42.6 % (36.0-47.0); HEMOGLOBIN 13.8 g/dL (12.0-15.5); MEAN CORPUSCULAR HEMOGLOBIN 26.4 pg (27.0-33.4); MEAN CORPUSCULAR HGB CONC 32.3 g/dL (32.0-36.0); MEAN CORPUSCULAR VOLUME 82 fl (80-97); PLATELET COUNT 129 10^3/uL (150-450); RED BLOOD COUNT 5.21 10^6/uL (3.72-5.28); RED CELL DISTRIBUTION WIDTH 21.2 % (11.5-14.0); TOTAL CELLS COUNTED % (AUTO) 100 %; WHITE BLOOD COUNT 4.8 10^3/uL (4.0-10.5)
[2017-12-15 13:09] LABS: ALANINE AMINOTRANSFERASE 17 U/L (9-52); ALBUMIN 3.6 g/dL (3.5-5.0); ALKALINE PHOSPHATASE 112 U/L (38-126); ANION GAP 9 (5-19); ASPARTATE AMINO TRANSFERASE 10 U/L (14-36); BILIRUBIN,DIRECT 0.1 mg/dL (0.0-0.4); BILIRUBIN,TOTAL 0.6 mg/dL (0.2-1.3); BLOOD UREA NITROGEN 17 mg/dL (7-20); CALCIUM 9.7 mg/dL (8.4-10.2); CARBON DIOXIDE 34 mmol/L (22-30); CHLORIDE 98 mmol/L (98-107); CHOLESTEROL 91.15 mg/dL (0-200); GLUCOSE 144 mg/dL (75-110); POTASSIUM 3.5 mmol/L (3.6-5.0); SODIUM 140.8 mmol/L (137-145); TRIGLYCERIDES 110 mg/dL (<150)
[2017-12-15 13:20] LABS: DIRECT LDL 56 mg/dL (<100)
[2017-12-18 10:38] LABS: CREATININE URINE 80.5 mg/dL (Not Estab.); MICROALBUMIN URINE 64.5 ug/mL (Not Estab.)
== END ==
LOC: OD 11:48
PROVIDERS: ATTEND Family Medicine Geriatric Medicine
DX: E11.8 Type 2 diabetes mellitus with unspecified complications (principal); I10 Essential (primary) hypertension; E78.5 Hyperlipidemia, unspecified; Z79.899 Other long term (current) drug therapy
CPT/HCPCS: 36415; 80053; 80061; 82043; 82306; 82570; 83036; 85025

== ENCOUNTER → 2018-05-24 | Outpatient (CLI) | payer MEDICAID ==
[2018-05-24 09:29] LABS: ABSOLUTE EOSINOPHILS # (AUTO) 0.1 10^3/uL (0.0-0.6); ABSOLUTE LYMPHOCYTES (AUTO) 0.6 10^3/uL (0.5-4.7); ABSOLUTE MONOCYTES (AUTO) 0.3 10^3/uL (0.1-1.4); ABSOLUTE NEUT (AUTO) 3.5 10^3/uL (1.7-8.2); BASOPHILS % (AUTO) 0.8 % (0-2); HEMATOCRIT 43.1 % (36.0-47.0); LYMPHOCYTES % (AUTO) 13.4 % (13-45); MEAN CORPUSCULAR HEMOGLOBIN 27.8 pg (27.0-33.4); MEAN CORPUSCULAR HGB CONC 32.4 g/dL (32.0-36.0); MEAN CORPUSCULAR VOLUME 86 fl (80-97); MONOCYTES % (AUTO) 6.3 % (3-13); PLATELET COUNT 116 10^3/uL (150-450); RED BLOOD COUNT 5.03 10^6/uL (3.72-5.28); SEGMENTED NEUTROPHILS % (AUTO) 76.5 % (42-78); TOTAL CELLS COUNTED % (AUTO) 100 %; WHITE BLOOD COUNT 4.5 10^3/uL (4.0-10.5)
[2018-05-24 10:01] LABS: ALANINE AMINOTRANSFERASE 16 U/L (9-52); ANION GAP 5 (5-19); BLOOD UREA NITROGEN 32 mg/dL (7-20); CALCIUM 9.7 mg/dL (8.4-10.2); CARBON DIOXIDE 37 mmol/L (22-30); CHLORIDE 99 mmol/L (98-107); CHOLESTEROL 90.73 mg/dL (0-200); GLUCOSE 162 mg/dL (75-110); POTASSIUM 4.4 mmol/L (3.6-5.0); SODIUM 140.9 mmol/L (137-145); TRIGLYCERIDES 82 mg/dL (<150); URIC ACID 3.8 mg/dL (2.5-7.5)
[2018-05-24 10:12] LABS: DIRECT LDL 45 mg/dL (<100)
[2018-05-25 14:38] LABS: CREATININE URINE 27.8 mg/dL (Not Estab.); MICROALBUMIN URINE 19.5 ug/mL (Not Estab.)
== END ==
LOC: LAB 08:35
PROVIDERS: ATTEND Family Medicine Geriatric Medicine
DX: E11.8 Type 2 diabetes mellitus with unspecified complications (principal); D69.6 Thrombocytopenia, unspecified; I65.23 Occlusion and stenosis of bilateral carotid arteries; E78.5 Hyperlipidemia, unspecified; Z79.899 Other long term (current) drug therapy
CPT/HCPCS: 36415; 80048; 80061; 82043; 82570; 83036; 84460; 84550; 85025

== ENCOUNTER 2018-07-16 15:10 | Observation (INO) | payer MEDICAID ==
--- NOTE | 2018-07-16 16:27 | RADIOLOGY REPORT (SQ) ---
EXAM DESCRIPTION: CHEST SINGLE VIEW COMPLETED DATE/TIME: 07/16/2018 4:16 pm REASON FOR STUDY: SOB COMPARISON: 10/12/2017 EXAM PARAMETERS: NUMBER OF VIEWS: One view. TECHNIQUE: Single frontal radiographic view of the chest acquired. RADIATION DOSE: NA LIMITATIONS: None. FINDINGS: LUNGS AND PLEURA: Mild pulmonary vascular congestion. Chronic interstitial changes in the lung bases. No infiltrate or effusion. No pulmonary mass. MEDIASTINUM AND HILAR STRUCTURES: No masses. Contour normal. HEART AND VASCULAR STRUCTURES: Cardiomegaly. No yumiko pulmonary edema. BONES: No acute findings. HARDWARE: None in the chest. OTHER: No other significant finding. IMPRESSION: Cardiomegaly with mild pulmonary vascular congestion but no pulmonary edema. Chronic louise ng changes. TECHNICAL DOCUMENTATION: JOB ID: [id number] [employer]- All Rights Reserved Reading location - IP/workstation name: [email or web address]
[2018-07-16 16:55] LABS: HEMATOCRIT 36.9 % (36.0-47.0); HEMOGLOBIN 11.3 g/dL (12.0-15.5); MEAN CORPUSCULAR HEMOGLOBIN 25.4 pg (27.0-33.4); MEAN CORPUSCULAR HGB CONC 30.5 g/dL (32.0-36.0); MEAN CORPUSCULAR VOLUME 83 fl (80-97); PLATELET COUNT 107 10^3/uL (150-450); RED BLOOD COUNT 4.44 10^6/uL (3.72-5.28); WHITE BLOOD COUNT 5.1 10^3/uL (4.0-10.5)
[2018-07-16 17:17] LABS: ABSOLUTE LYMPHOCYTES# (MANUAL) 0.2 10^3/uL (0.5-4.7); ABSOLUTE MONOCYTES # (MANUAL) 0.1 10^3/uL (0.1-1.4); ABSOLUTE NEUTROPHILS# (MANUAL) 4.8 10^3/uL (1.7-8.2); ALANINE AMINOTRANSFERASE 17 U/L (9-52); ALBUMIN 2.7 g/dL (3.5-5.0); ALKALINE PHOSPHATASE 119 U/L (38-126); ANION GAP 10 (5-19); ANISOCYTOSIS 3+; ASPARTATE AMINO TRANSFERASE 8 U/L (14-36); BAND NEUTROPHILS % (MANUAL) 2 % (3-5); BASOPHILS % (MANUAL) 0 % (0-2); BILIRUBIN,DIRECT 0.3 mg/dL (0.0-0.4); BILIRUBIN,TOTAL 0.7 mg/dL (0.2-1.3); BLOOD UREA NITROGEN 25 mg/dL (7-20); CALCIUM 8.5 mg/dL (8.4-10.2); CARBON DIOXIDE 29 mmol/L (22-30); CHLORIDE 103 mmol/L (98-107); EOSINOPHILS % (MANUAL) 0 % (0-6); GLUCOSE 211 mg/dL (75-110); LYMPHOCYTES % (MANUAL) 3 % (13-45); MONOCYTES % (MANUAL) 2 % (3-13); POIKILOCYTOSIS SLIGHT; POLYCHROMASIA SLIGHT; POTASSIUM 3.6 mmol/L (3.6-5.0); SEGMENTED NEUTROPHILS % (MAN) 93 % (42-78); SODIUM 141.5 mmol/L (137-145); STOMATOCYTES SLIGHT; TOTAL CELLS COUNTED 100; TOTAL PROTEIN 4.8 g/dL (6.3-8.2)
[2018-07-16 17:18] LABS: HYPOCHROMASIA 2+; PLATELET COMMENT DECREASED; TOXIC GRANULATION SLIGHT
[2018-07-16 19:02] LABS: ARTERIAL BLOOD BASE EXCESS 4.5 mmol/L; ARTERIAL BLOOD H2CO3 1.56 mmol/L (1.05-1.35); ARTERIAL BLOOD HCO3 30.5 mmol/L (20-24); ARTERIAL BLOOD O2 SATURATION 85.5 % (94-98); ARTERIAL BLOOD PCO2 51.7 mmHg (35-45); ARTERIAL BLOOD PH 7.39 (7.35-7.45); ARTERIAL BLOOD PO2 51.4 mmHg (80-100); ARTERIAL BLOOD TOTAL CO2 32.1 mmol/L (21-25)
[2018-07-16 19:03] LABS: ARTERIAL BLOOD FIO2 4L
[2018-07-16] MEDS ORDERED: FUROSEMIDE INJ/PF 20 MG/2 ML SDV IV ONE (19:36)
[2018-07-16] MEDS ORDERED: MORPHINE SULFATE 10 MG/ML INJ IV ONE ×2 (19:36→22:07)
[2018-07-16] MEDS ORDERED: ONDANSETRON HCL INJ/PF 4 MG/2 ML SDV IV ONE (19:37)
[2018-07-16] MEDS ORDERED: HYDRALAZINE HCL INJ/PF 20 MG/1 ML SDV IV PRN (21:45)
[2018-07-16] MEDS ORDERED: NICOTINE POLACRILEX 2 MG PO PRN (21:45)
[2018-07-16] MEDS ORDERED: DEXTROSE 40% GEL 15 GM TUBE PO PRN ×2 (21:48)
[2018-07-16] MEDS ORDERED: DEXTROSE 50%-WATER 25 GM/50 ML DISP.SYRIN IV PRN ×2 (21:48)
[2018-07-16] MEDS ORDERED: MAG HYDROX/AL HYDROX/SIMETH SUSP 30 ML UDCUP PO PRN (21:48)
[2018-07-16] MEDS ORDERED: GLUCAGON,HUMAN RECOMB 1 MG INJ IM PRN (21:48)
[2018-07-16] MEDS ORDERED: ACETAMINOPHEN 325 MG TABLET PO PRN (21:48)
--- NOTE | 2018-07-16 21:49 | ER Document Report ---
ED General - General Chief Complaint: Breathing Difficulty Stated Complaint: DIFFICULTY BREATHING Time Seen by Provider: 07/16/18 18:12 TRAVEL OUTSIDE OF THE [place] IN LAST 30 DAYS: No - HPI Notes: Patient is a 63-year-old female with multiple medical issues who presents to the emergency department for evaluation of difficulty breathing and increased swelling in her legs. She states is been ongoing for the last 5 to 7 days, worse in the last 24 hours. She denies any fevers. She does have a cough int ermittently productive, but she does continue to smoke. She does have some orthopnea, denies any paroxysmal nocturnal dyspnea. She states she is on oxygen 3-1/2 L chronically. She states that this is not seeming to be helping. She is been using her medications at home as prescribed and has not had any improvement in her symptoms. No nausea or vomiting. Urinating normally. - Related Data Allergies/Adverse Reactions: Sulfa (Sulfonamide Antibiotics) Allergy (Verified 02/18/16 03:50) Past Medical History - General Information source: Patient - Social History Smoking Status: Current Every Day Smoker Chew tobacco use (# tins/day): No Frequency of alcohol use: None Drug Abuse: None Family History: COPD, Hypertension Patient has suicidal ideation: No Patient has homicidal ideation: No - Past Medical History Cardiac Medical History: Reports: Hx Congestive Heart Failure, Hx Hypertension Pulmonary Medical History: Reports: Hx COPD - O2 dependent COPD Endocrine Medical History: Reports: Hx Diabetes Mellitus Type 2 Renal/ Medical History: Denies: Hx Peritoneal Dialysis Musculoskeletal Medical History: Reports Hx Gout Psychiatric Medical History: Reports: Hx Depression Past Surgical History: Reports: Hx Section, Hx Hysterectomy, Hx Orthopedic Surgery - Bilateral carpal tunnel surgery, back surgery., Hx Vascular Surgery - Bilateral carotid endarterectomies - Immunizations Hx Diphtheria, Pertussis, Tetanus Vaccination: Yes Review of Systems - Review of Systems Constitutional: Weakness EENT: No symptoms reported Cardiovascular: See HPI Respiratory: See HPI Gastrointestinal: No symptoms reported Genitourinary: No symptoms reported Musculoskeletal: No symptoms reported Skin: No symptoms reported Neurological/Psychological: No symptoms reported Physical Exam - Vital signs Vitals: Resp Pulse Ox 20 88 L 07/16/18 16:19 07/16/18 16:19 - Notes Notes: 63-year-old female, appears older than her stated age with mild respiratory distress. She is mildly tachypneic. Head is normocephalic and atraumatic. Pupils are equal round, reactive to light. Oral mucosa is moist. Neck supple without meningismus. Heart is regular rate and rhythm, lungs show diminished breath sounds with occasional expiratory wheeze and rales at the bases. Abdomen soft, nontender, normoactive bowel sounds. 3+ pitting edema bilateral lower extremities with vasculitic appearing erythematous changes. Dorsalis pedis pulses 2+. Patient is awake alert, oriented x3. Neurological exam is nonfocal. Course - Re-evaluation Re-evalutation: 07/16/18 21:47 Patient presents to the emergency department for evaluation. She complains of difficulty breathing and increased leg edema. She was placed on a cardiac mon itor, oxygen per nasal cannula, laboratory investigations were ordered. The patient was given breathing treatment and Solu-Medrol. Her oxygen did not respond significantly to these interventions. Chest x-ray showed pulmonary vascular congestion. proBNP was elevated. ABG was ordered and she was found to be hypoxemic and hypercarbic. She was placed on BiPAP. Her tachypnea improved. Despite Lasix the patient is still not urinated. She denied any chest pain. Her cardiac enzymes are negative. I spoke with Dr. Hall, he will kindly admit the patient for further care. 07/16/18 21:51 - Vital Signs Vital signs: Temp Pulse Resp BP Pulse Ox 97.9 F 76 18 110/67 91 L 07/17/18 11:14 07/17/18 11:14 07/17/18 11:14 07/17/18 11:14 07/17/18 11:14 - Laboratory Result Diagrams: 07/17/18 03:57 07/17/18 03:57 Laboratory results interpreted by me: 07/16/18 07/16/18 07/16/18 16:45 16:45 16:45 Hgb 11.3 L MCH 25.4 L MCHC 30.5 L RDW 21.0 H Plt Count 107 L Seg Neuts % (Manual) 93 H Band Neutrophils % 2 L Lymphocytes % (Manual) 3 L Monocytes % (Manual) 2 L Abs Lymphs (Manual) 0.2 L Carbonic Acid ABG pCO2 ABG pO2 ABG HCO3 ABG Total CO2 ABG O2 Saturation BUN 25 H Creatinine 1.39 H Est GFR ( Amer) 46 L Est GFR (Non-Af Amer) 38 L Glucose 211 H AST 8 L NT-Pro-B Natriuret Pep 3420 H Total Protein 4.8 L Albumin 2.7 L 07/16/18 17:55 Hgb MCH MCHC RDW Plt Count Seg Neuts % (Manual) Band Neutrophils % Lymphocytes % (Manual) Monocytes % (Manual) Abs Lymphs (Manual) Carbonic Acid 1.56 H ABG pCO2 51.7 H ABG pO2 51.4 L ABG HCO3 30.5 H ABG Total CO2 32.1 H ABG O2 Saturation 85.5 L BUN Creatinine Est GFR ( Amer) Est GFR (Non-Af Amer) Glucose AST NT-Pro-B Natriuret Pep Total Protein Albumin - Diagnostic Test Radiology reviewed: Reports reviewed Radiology results interpreted by me: 07/16/18 21:54 Chest X-Ray 07/16/18 15:36 IMPRESSION: Cardiomegaly with mild pulmonary vascular congestion but no pulmonary edema. Chronic lung changes. - EKG Interpretation by Me Additional EKG results interpreted by me: 07/16/18 21:54 Sinus mechanism with a rate of 92 bpm. PACs and PVCs noted. Normal axis and intervals. Nonspecific ST changes, but no acute changes concerning for ischemia or infarction. No significant change in compared to prior study of October 12, 2017 Critical Care Note - Critical Care Note Total time excluding time spent on procedures (mins): 20 Discharge - Discharge Clinical Impression: Acute on chronic respiratory failure with hypoxia and hypercapnia, CHF (congestive heart failure) Condition: Stable Disposition: ADMITTED INPATIENT Admitting Provider: Rafael (Hospitalist) Unit Admitted: [facility]
[2018-07-16] MEDS ORDERED: IPRATROPIUM/ALBUTEROL 0.5-2.5 MG/3 ML AMPUL NEB PRN (21:53)
[2018-07-16] MEDS ORDERED: (PENDING PHARMACY ID) (Bupropion Hcl [Bupropion Hcl Sr] 100 MG) PO SCH (22:00)
[2018-07-16] MEDS ORDERED: (PENDING PHARMACY ID) (Fluticasone/Salmeterol 1 PUFF) IH SCH (22:00)
[2018-07-16] MEDS ORDERED: LATANOPROST 0.005% OPH SOLN 2.5 ML OU SCH (22:00)
[2018-07-16] MEDS ORDERED: FLUTICASONE NASAL SPRAY 50 MCG/SPRY 120 SPRAY/16 GM NASL SCH (22:00)
--- NOTE | 2018-07-16 22:34 | EKG REPORT ---
SEVERITY:- ABNORMAL ECG - SINUS TACHYCARDIA CONSIDER ANTERIOR INFARCT : Confirmed by: Elle Escalante 16-Jul-2018 22:32:58
[2018-07-16] MEDS ORDERED: FLUTICASONE NASAL SPRAY 50 MCG/SPRY 120 SPRAY/16 GM ONE (22:52)
[2018-07-16 23:22] LABS: APPEARANCE,URINE CLOUDY; BILIRUBIN,URINE NEGATIVE (NEGATIVE); COLOR,URINE YELLOW; GLUCOSE, URINE NEGATIVE (NEGATIVE); KETONES,URINE NEGATIVE (NEGATIVE); LEUKOCYTE ESTERASE,URINE SMALL (NEGATIVE); NITRITE,URINE NEGATIVE (NEGATIVE); PROTEIN,URINE NEGATIVE (NEGATIVE); URINE SPECIFIC GRAVITY 1.011; UROBILINOGEN,URINE NEGATIVE mg/dL (<2.0)
[2018-07-16] MEDS: FLUTICASONE NASAL SPRAY 50 MCG/SPRY 120 SPRAY/16 GM NASL SCH (23:42)
[2018-07-16] MEDS: ATORVASTATIN CALCIUM 80 MG TABLET PO SCH (23:42)
[2018-07-16] MEDS: FUROSEMIDE INJ/PF 40 MG/4 ML SDV IV SCH (23:43)
[2018-07-16] MEDS: GABAPENTIN 300 MG CAPSULE PO SCH (23:43)
[2018-07-17] MEDS: ENALAPRIL MALEATE 2.5 MG TABLET PO SCH ×2 (00:13→11:44)
[2018-07-17] MEDS: NITROGLYCERIN 5 MG (0.2 MG/HR) PATCH.TD24 TD SCH ×2 (00:13→11:44)
[2018-07-17] MEDS: GABAPENTIN 300 MG CAPSULE PO SCH ×2 (00:19→05:15)
[2018-07-17] MEDS: POTASSI CL 20 MEQ/50 ML RIDER 20 MEQ/50 ML RTUPB IV SCH ×2 (00:28→02:59)
[2018-07-17] MEDS: IPRATROPIUM/ALBUTEROL 0.5-2.5 MG/3 ML AMPUL NEB SCH ×2 (00:52→08:48)
--- NOTE | 2018-07-17 03:13 | PDOC H&P ---
History of Present Illness Admission Date/PCP: 07/16/18 22:32 JENNIFER NOLASCO MD Patient complains of: Shortness of breath History of Present Illness: TAI FAN is a 63 year old female with a past medical history of oxygen dependent COPD, congestive heart failure, CKD 3, obstructive sleep apnea, insulin-dependent diabetes and ongoing tobacco dependence who presents with 7 days of shortness of breath associated with leg swelling intermittent productive cough without nausea vomiting or chest pain. In the emergency room she is found to have hypercapnic and hypoxic respiratory failure likely not far from her baseline but also a BNP greater than 3000. She receives BiPAP, IV Lasix and referred to the hospitalist for admission. Patient denies chest pain palpitations nausea or vomiting, denies recent change in medication regiment but admits to lifestyle noncompliance with tobacco and BiPAP. Past Medical History Cardiac Medical History: Reports: Congestive Heart Failure, Hypertension Pulmonary Medical History: Reports: Chronic Obstructive Pulmonary Disease (COPD) - O2 dependent COPD, Sleep Apnea Endocrine Medical History: Reports: Diabetes Mellitus Type 2 Musculoskeltal Medical History: Reports: Gout Psychiatric Medical History: Reports: Depression, Tobacco Dependency Past Surgical History Past Surgical History: Reports: Section, Hysterectomy, Orthopedic Surgery - Bilateral carpal tunnel surgery, back surgery., Vascular Surgery - Bilateral carotid endarterectomies Social History Information Source: Patient, Emergency Med Personnel, [facility] Records Smoking Status: Current Every Day Smoker Cigarettes Packs Per Day: 0.5 Number of Years Smokin Last Time Smoked: Jul 16 2018 Frequency of Alcohol Use: None Hx Recreational Drug Use: No Drugs: None Hx Prescription Drug Abuse: No - Advance Directive Resuscitation Status: Full Code Family History Family History: COPD, Hypertension Parental Family History Reviewed: Yes Children Family History Reviewed: Yes Sibling(s) Family History Reviewed.: Yes Medication/Allergy Home Medications: Allopurinol [Zyloprim 300 mg Tablet] 300 mg PO DAILY 10/12/17 Atorvastatin Calcium [Lipitor 80 mg Tablet] 80 mg PO DAILY 10/12/17 Bupropion HCl [Bupropion HCl Sr] 100 mg PO Q12 10/12/17 Ergocalciferol (Vitamin D2) [Drisdol 50,000 unit (1.25MG) Capsule] 50,000 unit PO NIEVES@1000 10/12/17 Fluticasone Propionate [Flonase Nasal [place] 50 Mcg/[place] 16 gm] 2 spray NASL DAILY 10/12/17 Fluticasone/Salmeterol [Advair 500-50 Diskus 14 Dose/Diskus] 1 puff IH Q12 10/12/17 Gabapentin [Neurontin 300 mg Capsule] 600 mg PO Q6 10/12/17 Insulin Glargine,Hum.rec.anlog [Lantus Solostar] 70 unit SQ QAM 10/12/17 Latanoprost [Xalatan 0.005% Oph Soln 2.5 ml] 1 drop OU QHS 10/12/17 Magnesium Oxide [Mag-Ox 400 mg Tablet] 400 mg PO BID 10/12/17 Nicotine Polacrilex [Nicorette] 2 mg PO Q4HP PRN 10/12/17 Nicotine [Nicotrol] 10 mg IH Q3HP PRN 10/12/17 Omeprazole 40 mg PO DAILY 10/12/17 Oxycodone HCl [Oxycodone HCl 10 MG Tablet] 10 mg PO Q6HP PRN 10/12/17 Pregabalin [Lyrica 75 mg Capsule] 75 mg PO Q12 10/12/17 Ranitidine HCl [Zantac 150 mg Tablet] 150 mg PO QHS 10/12/17 Roflumilast [Daliresp 500 mcg Tablet] 500 mcg PO DAILY 10/12/17 Torsemide 100 mg PO DAILY 10/12/17 Levofloxacin [Levaquin 500 mg Tablet] 500 mg PO DAILY #5 tablet 10/14/17 Prednisone 40 mg PO DAILY #4 tablet 10/14/17 Allergies/Adverse Reactions: Sulfa (Sulfonamide Antibiotics) Allergy (Verified 02/18/16 03:50) Review of Systems Constitutional: PRESENT: as per HPI, anorexia, fatigue, weight gain. ABSENT: chills Eyes: ABSENT: visual disturbances Ears: ABSENT: hearing changes Cardiovascular: PRESENT: as per HPI, dyspnea on exertion, edema, orthropnea. ABSENT: chest pain, palpitations Respiratory: PRESENT: as per HPI, cough, dyspnea. ABSENT: hemoptysis, sputum Gastrointestinal: PRESENT: constipation. ABSENT: abdominal pain, diarrhea, hematemesis, hematochezia, nausea, vomiting Genitourinary: ABSENT: dysuria, hematuria Musculoskeletal: ABSENT: joint swelling Integumentary: ABSENT: rash, wounds Neurological: ABSENT: abnormal gait, abnormal speech, confusion, dizziness, focal weakness, syncope Psychiatric: ABSENT: anxiety, depression, homidical ideation, suicidal ideation Endocrine: ABSENT: cold intolerance, heat intolerance, polydipsia, polyuria Hematologic/Lymphatic: ABSENT: easy bleeding, easy bruising Physical Exam Vital Signs: Temp Pulse Resp BP Pulse Ox 97.4 F 92 16 139/58 H 98 07/17/18 02:08 07/17/18 02:08 07/17/18 02:08 07/17/18 02:08 07/17/18 02:08 Intake & Output 07/15/18 07/16/18 07/17/18 11:59 11:59 11:59 Weight 88.451 kg General appearance: PRESENT: cooperative, disheveled, mild distress. ABSENT: hard of hearing Head exam: PRESENT: atraumatic, normocephalic Eye exam: PRESENT: conjunctiva pink, EOMI, PERRLA. ABSENT: scleral icterus Ear exam: PRESENT: normal external ear exam Mouth exam: PRESENT: moist, tongue midline Neck exam: ABSENT: carotid bruit, JVD, lymphadenopathy, thyromegaly Respiratory exam: PRESENT: accessory muscle use, crackles, prolonged expiratory phas, rales, symmetrical, tachypnea. ABSENT: rhonchi, stridor Cardiovascular exam: PRESENT: gallop, RRR. ABSENT: diastolic murmur, rubs, systolic murmur Pulses: PRESENT: normal dorsalis pedis pul Vascular exam: PRESENT: normal capillary refill GI/Abdominal exam: PRESENT: normal bowel sounds, soft. ABSENT: distended, guarding, mass, organolmegaly, rebound, tenderness Rectal exam: PRESENT: deferred Extremities exam: PRESENT: full ROM, +1 edema. ABSENT: calf tenderness, clubbing, pedal edema Neurological exam: PRESENT: alert, awake, oriented to person, oriented to place, oriented to time, oriented to situation, CN II-XII grossly intact. ABSENT: motor sensory deficit Psychiatric exam: PRESENT: appropriate affect, normal mood. ABSENT: homicidal ideation, suicidal ideation Skin exam: PRESENT: dry, intact, warm. ABSENT: cyanosis, rash Results Laboratory Results: 07/16/18 16:45 07/16/18 16:45 07/16/18 07/16/18 07/16/18 16:45 16:45 16:45 WBC 5.1 RBC 4.44 Hgb 11.3 L Hct 36.9 MCV 83 MCH 25.4 L MCHC 30.5 L RDW 21.0 H Plt Count 107 L Seg Neutrophils % Not Reportable Lymphocytes % Not Reportable Monocytes % Not Reportable Eosinophils % Not Reportable Basophils % Not Reportable Absolute Neutrophils Not Reportable Absolute Lymphocytes Not Reportable Absolute Monocytes Not Reportable Absolute Eosinophils Not Reportable Absolute Basophils Not Reportable Carbonic Acid HCO3/H2CO3 Ratio ABG pH ABG pCO2 ABG pO2 ABG HCO3 ABG O2 Saturation ABG Base Excess FiO2 Sodium 141.5 Potassium 3.6 Chloride 103 Carbon Dioxide 29 Anion Gap 10 BUN 25 H Creatinine 1.39 H Est GFR ( Amer) 46 L Est GFR (Non-Af Amer) 38 L Glucose 211 H Calcium 8.5 Magnesium 1.8 Total Bilirubin 0.7 AST 8 L ALT 17 Alkaline Phosphatase 119 Total Protein 4.8 L Albumin 2.7 L Urine Color Urine Appearance Urine pH Ur Specific [place] Urine Protein Urine Glucose (UA) Urine Ketones Urine Blood Urine Nitrite Ur Leukocyte Esterase Urine WBC (Auto) Urine RBC (Auto) 07/16/18 07/16/18 17:55 23:05 WBC RBC Hgb Hct MCV MCH MCHC RDW Plt Count Seg Neutrophils % Lymphocytes % Monocytes % Eosinophils % Basophils % Absolute Neutrophils Absolute Lymphocytes Absolute Monocytes Absolute Eosinophils Absolute Basophils Carbonic Acid 1.56 H HCO3/H2CO3 Ratio 19:1 ABG pH 7.39 ABG pCO2 51.7 H ABG pO2 51.4 L ABG HCO3 30.5 H ABG O2 Saturation 85.5 L ABG Base Excess 4.5 FiO2 4L Sodium Potassium Chloride Carbon Dioxide Anion Gap BUN Creatinine Est GFR ( Amer) Est GFR (Non-Af Amer) Glucose Calcium Magnesium Total Bilirubin AST ALT Alkaline Phosphatase Total Protein Albumin Urine Color YELLOW Urine Appearance CLOUDY Urine pH 5.0 Ur Specific [place] 1.011 Urine Protein NEGATIVE Urine Glucose (UA) NEGATIVE Urine Ketones NEGATIVE Urine Blood NEGATIVE Urine Nitrite NEGATIVE Ur Leukocyte Esterase SMALL H Urine WBC (Auto) 10 Urine RBC (Auto) 2 07/16/18 07/16/18 16:45 22:20 Troponin I 0.017 NT-Pro-B Natriuret Pep 3420 H Impressions: Chest X-Ray 07/16/18 15:36 IMPRESSION: Cardiomegaly with mild pulmonary vascular congestion but no pulmonary edema. Chronic lung changes. Assessment and Plan - Diagnosis (1) Acute on chronic respiratory failure with hypoxia and hypercapnia Is this a current diagnosis for this admission?: Yes Plan: Complicated by end-stage COPD, lifestyle and medication noncompliance. Supplemental oxygen, BiPAP, prednisone, empiric antibiotics and education (2) CHF (congestive heart failure) Is this a current diagnosis for this admission?: Yes Plan: CHF care set deployed, most likely cor pulmonale with pulmonary hypertension, optimize blood pressure, fluid restricted diet, follow-up 2D echo (3) CKD stage 3 due to type 2 diabetes mellitus Is this a current diagnosis for this admission?: Yes Plan: At baseline avoid nephrotoxic meds and doses follow-up chemistry (4) Insulin dependent diabetes mellitus Is this a current diagnosis for this admission?: Yes Plan: Outpatient long-acting insulin ordered, Humalog sliding scale QIC (5) GARY (obstructive sleep apnea) Is this a current diagnosis for this admission?: Yes Plan: BiPAP. - Time Time Spent with patient: 25-34 minutes - Inpatient Certification Medical Necessity: Need Close Monitoring Due to Risk of Patient Decompensation
[2018-07-17 04:41] LABS: ABSOLUTE LYMPHOCYTES (AUTO) 0.2 10^3/uL (0.5-4.7); ABSOLUTE NEUT (AUTO) 2.5 10^3/uL (1.7-8.2); BASOPHILS % (AUTO) 0.4 % (0-2); EOSINOPHILS % (AUTO) 0.1 % (0-6); HEMATOCRIT 38.5 % (36.0-47.0); HEMOGLOBIN 11.6 g/dL (12.0-15.5); LYMPHOCYTES % (AUTO) 7.3 % (13-45); MEAN CORPUSCULAR HEMOGLOBIN 25.1 pg (27.0-33.4); MEAN CORPUSCULAR HGB CONC 30.3 g/dL (32.0-36.0); MEAN CORPUSCULAR VOLUME 83 fl (80-97); MONOCYTES % (AUTO) 0.8 % (3-13); PLATELET COUNT 101 10^3/uL (150-450); RED BLOOD COUNT 4.63 10^6/uL (3.72-5.28); RED CELL DISTRIBUTION WIDTH 20.9 % (11.5-14.0); SEGMENTED NEUTROPHILS % (AUTO) 91.4 % (42-78); TOTAL CELLS COUNTED % (AUTO) 100 %
[2018-07-17 04:55] LABS: ANION GAP 8 (5-19); BLOOD UREA NITROGEN 27 mg/dL (7-20); CALCIUM 8.9 mg/dL (8.4-10.2); CARBON DIOXIDE 30 mmol/L (22-30); CHLORIDE 104 mmol/L (98-107); GLUCOSE 238 mg/dL (75-110); SODIUM 142.3 mmol/L (137-145)
[2018-07-17 05:08] LABS: POTASSIUM 4.9 mmol/L (3.6-5.0)
[2018-07-17 05:11] LABS: WHITE BLOOD COUNT 2.7 10^3/uL (4.0-10.5)
[2018-07-17 06:36] LABS: ARTERIAL BLOOD BASE EXCESS 6.2 mmol/L; ARTERIAL BLOOD H2CO3 1.55 mmol/L (1.05-1.35); ARTERIAL BLOOD HCO3 32.1 mmol/L (20-24); ARTERIAL BLOOD O2 SATURATION 97.2 % (94-98); ARTERIAL BLOOD PCO2 51.6 mmHg (35-45); ARTERIAL BLOOD PH 7.41 (7.35-7.45); ARTERIAL BLOOD PO2 94.7 mmHg (80-100); ARTERIAL BLOOD TOTAL CO2 33.7 mmol/L (21-25)
[2018-07-17 06:37] LABS: ARTERIAL BLOOD FIO2 50%
[2018-07-17] MEDS: INSULIN LISPRO 100 UNIT/ML 3 ML VIAL SUBCUT SCH ×2 (07:46→11:45)
[2018-07-17] MEDS ORDERED: INSULIN GLARGINE,HUM.REC.ANLOG 1,000 UNIT/10 ML VIAL SUBCUT SCH (08:00)
[2018-07-17 08:32] VITALS: BP 110/67
[2018-07-17] MEDS ORDERED: FLUTICASONE/VILANTEROL 200-25 MCG/DOSE IH SCH (10:00)
[2018-07-17] MEDS ORDERED: POTASSIUM CHLORIDE 10 MEQ CAPSULE.ER PO SCH (10:00)
[2018-07-17] MEDS ORDERED: MAGNESIUM OXIDE 400 MG TABLET PO SCH (10:00)
[2018-07-17] MEDS ORDERED: (PENDING PHARMACY ID) (Roflumilast [Daliresp 500 Mcg Tablet] 500 MCG) PO SCH (10:00)
--- NOTE | 2018-07-17 11:15 | PDOC DISCHARGE SUMMARY ---
General - Admit/Disc Date/PCP Admission Date/Primary Care Provider: 07/16/18 22:32 JENNIFER NOLASCO MD Discharge Date: 07/17/18 - Additional Information Resuscitation Status: Full Code Discharge Diet: Cardiac, Diabetic Discharge Activity: Activity As Tolerated Home Medications: Allopurinol [Zyloprim 300 mg Tablet] 300 mg PO DAILY 10/12/17 Atorvastatin Calcium [Lipitor 80 mg Tablet] 80 mg PO DAILY 10/12/17 Bupropion HCl [Bupropion HCl Sr] 100 mg PO Q12 10/12/17 Ergocalciferol (Vitamin D2) [Drisdol 50,000 unit (1.25MG) Capsule] 50,000 unit P O NIEVES@1000 10/12/17 Fluticasone Propionate [Flonase Nasal [place] 50 Mcg/[place] 16 gm] 2 spray NASL IGOR LY 10/12/17 Fluticasone/Salmeterol [Advair 500-50 Diskus 14 Dose/Diskus] 1 puff IH Q12 10/12/17 Gabapentin [Neurontin 300 mg Capsule] 600 mg PO Q6 10/12/17 Insulin Glargine,Hum.rec.anlog [Lantus Solostar] 70 unit SQ QAM 10/12/17 Latanoprost [Xalatan 0.005% Oph Soln 2.5 ml] 1 drop OU QHS 10/12/17 Magnesium Oxide [Mag-Ox 400 mg Tablet] 400 mg PO BID 10/12/17 Nicotine Polacrilex [Nicorette] 2 mg PO Q4HP PRN 10/12/17 Nicotine [Nicotrol] 10 mg IH Q3HP PRN 10/12/17 Omeprazole 40 mg PO DAILY 10/12/17 Oxycodone HCl [Oxycodone HCl 10 MG Tablet] 10 mg PO Q6HP PRN 10/12/17 Pregabalin [Lyrica 75 mg Capsule] 75 mg PO Q12 10/12/17 Ranitidine HCl [Zantac 150 mg Tablet] 150 mg PO QHS 10/12/17 Roflumilast [Daliresp 500 mcg Tablet] 500 mcg PO DAILY 10/12/17 Torsemide 100 mg PO DAILY 10/12/17 Levofloxacin [Levaquin 500 mg Tablet] 500 mg PO DAILY #5 tablet 10/14/17 Prednisone 40 mg PO DAILY #4 tablet 10/14/17 History of Present Illness History of Present Illness: TAI FAN is a 63 year old female Hospital Course Hospital Course: HPI on admission: TAI FAN is a 63 year old female with a past medical history of oxygen dependent COPD, congestive heart failure, CKD 3, obstructive sleep apnea, insulin-dependent diabetes and ongoing tobacco dependence who presents with 7 days of shortness of breath associated with leg swelling intermittent productive cough without nausea vomiting or chest pain. In the emergency room she is found to have hypercapnic and hypoxic respiratory failure likely not far from her baseline but also a BNP greater than 3000. She receives BiPAP, IV Lasix and referred to the hospitalist for admission. Patient denies chest pain palpitations nausea or vomiting, denies recent change in medication regiment but admits to lifestyle noncompliance with tobacco and BiPAP. Physical Exam Patient is no acute distress Alert oriented to time place person No anxiety or depression Head: atraumatic normocephalic Pupils: are equal reactive Neck: is supple and trachea is central no lymphadenopathy No pharyngeal erythema or exudates Heart: Regular rate and rhythm, mild pitting edema Lungs: clear no distress Abdomen: nontender nondistended Neurological exam: unremarkable Musculoskeletal: No joint swelling or effusion chronic lower back pain and tenderness No suicidal or homicidal ideation Hospital course: (1) Acute on chronic respiratory failure with hypoxia and hypercapnia Is this a current diagnosis for this admission?: Yes Plan: Complicated by end-stage COPD, lifestyle and medication noncompliance. Supplemental oxygen, BiPAP (2) CHF (congestive heart failure) Is this a current diagnosis for this admission?: Yes Plan: CHF care set deployed, most likely cor pulmonale with pulmonary hypertension, optimize blood pressure, fluid restricted diet, follow-up 2D echo (3) CKD stage 3 due to type 2 diabetes mellitus Is this a current diagnosis for this admission?: Yes Plan: At baseline avoid nephrotoxic meds and doses follow-up chemistry (4) Insulin dependent diabetes mellitus Is this a current diagnosis for this admission?: Yes Plan: Outpatient long-acting insulin ordered, Humalog sliding scale QIC (5) GARY (obstructive sleep apnea) Is this a current diagnosis for this admission?: Yes Plan: BiPAP. Patient significantly improved after receiving IV diuretics. She is off BiPAP and stable on nasal cannula oxygen and she has oxygen at home chronically. She is back to her baseline. She was insisting on going home today. She feels a lot better and she feels that she is at her baseline and wanted to go home. 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 Physical Exam Vital Signs: Temp Pulse Resp BP Pulse Ox 97.9 F 76 18 110/67 91 L 07/17/18 07:24 07/17/18 08:53 07/17/18 08:53 07/17/18 07:24 07/17/18 08:53 Intake & Output 07/16/18 07/17/18 07/18/18 06:59 06:59 06:59 Intake Total 240 Balance 240 Weight 199 lb 8.293 oz Results Laboratory Results: 07/17/18 03:57 07/17/18 03:57 07/16/18 07/16/18 07/16/18 16:45 16:45 16:45 WBC 5.1 RBC 4.44 Hgb 11.3 L Hct 36.9 MCV 83 MCH 25.4 L MCHC 30.5 L RDW 21.0 H Plt Count 107 L Seg Neutrophils % Not Reportable Lymphocytes % Not Reportable Monocytes % Not Reportable Eosinophils % Not Reportable Basophils % Not Reportable Absolute Neutrophils Not Reportable Absolute Lymphocytes Not Reportable Absolute Monocytes Not Reportable Absolute Eosinophils Not Reportable Absolute Basophils Not Reportable Carbonic Acid HCO3/H2CO3 Ratio ABG pH ABG pCO2 ABG pO2 ABG HCO3 ABG O2 Saturation ABG Base Excess FiO2 Sodium 141.5 Potassium 3.6 Chloride 103 Carbon Dioxide 29 Anion Gap 10 BUN 25 H Creatinine 1.39 H Est GFR ( Amer) 46 L Est GFR (Non-Af Amer) 38 L Glucose 211 H Calcium 8.5 Magnesium 1.8 Total Bilirubin 0.7 AST 8 L ALT 17 Alkaline Phosphatase 119 Total Protein 4.8 L Albumin 2.7 L Urine Color Urine Appearance Urine pH Ur Specific [place] Urine Protein Urine Glucose (UA) Urine Ketones Urine Blood Urine Nitrite Ur Leukocyte Esterase Urine WBC (Auto) Urine RBC (Auto) 07/16/18 07/16/18 07/17/18 17:55 23:05 03:57 WBC 2.7 L D RBC 4.63 Hgb 11.6 L Hct 38.5 MCV 83 MCH 25.1 L MCHC 30.3 L RDW 20.9 H Plt Count 101 L Seg Neutrophils % 91.4 H Lymphocytes % 7.3 L Monocytes % 0.8 L Eosinophils % 0.1 Basophils % 0.4 Absolute Neutrophils 2.5 Absolute Lymphocytes 0.2 L Absolute Monocytes 0.0 L Absolute Eosinophils 0.0 Absolute Basophils 0.0 Carbonic Acid 1.56 H HCO3/H2CO3 Ratio 19:1 ABG pH 7.39 ABG pCO2 51.7 H ABG pO2 51.4 L ABG HCO3 30.5 H ABG O2 Saturation 85.5 L ABG Base Excess 4.5 FiO2 4L Sodium Potassium Chloride Carbon Dioxide Anion Gap BUN Creatinine Est GFR ( Amer) Est GFR (Non-Af Amer) Glucose Calcium Magnesium Total Bilirubin AST ALT Alkaline Phosphatase Total Protein Albumin Urine Color YELLOW Urine Appearance CLOUDY Urine pH 5.0 Ur Specific [place] 1.011 Urine Protein NEGATIVE Urine Glucose (UA) NEGATIVE Urine Ketones NEGATIVE Urine Blood NEGATIVE Urine Nitrite NEGATIVE Ur Leukocyte Esterase SMALL H Urine WBC (Auto) 10 Urine RBC (Auto) 2 07/17/18 07/17/18 03:57 06:25 WBC RBC Hgb Hct MCV MCH MCHC RDW Plt Count Seg Neutrophils % Lymphocytes % Monocytes % Eosinophils % Basophils % Absolute Neutrophils Absolute Lymphocytes Absolute Monocytes Absolute Eosinophils Absolute Basophils Carbonic Acid 1.55 H HCO3/H2CO3 Ratio 20:1 ABG pH 7.41 ABG pCO2 51.6 H ABG pO2 94.7 ABG HCO3 32.1 H ABG O2 Saturation 97.2 ABG Base Excess 6.2 FiO2 50% Sodium 142.3 Potassium 4.9 D Chloride 104 Carbon Dioxide 30 Anion Gap 8 BUN 27 H Creatinine 1.29 H Est GFR ( Amer) 51 L Est GFR (Non-Af Amer) 42 L Glucose 238 H Calcium 8.9 Magnesium Total Bilirubin AST ALT Alkaline Phosphatase Total Protein Albumin Urine Color Urine Appearance Urine pH Ur Specific [place] Urine Protein Urine Glucose (UA) Urine Ketones Urine Blood Urine Nitrite Ur Leukocyte Esterase Urine WBC (Auto) Urine RBC (Auto) 07/16/18 07/16/18 07/17/18 16:45 22:20 03:57 Troponin I 0.017 < 0.012 NT-Pro-B Natriuret Pep 3420 H 07/17/18 10:09 Troponin I < 0.012 NT-Pro-B Natriuret Pep Impressions: Chest X-Ray 07/16/18 15:36 IMPRESSION: Cardiomegaly with mild pulmonary vascular congestion but no pulmonary edema. Chronic lung changes. Qualifiers - * PATIENT BEING DISCHARGED WITH ANY OF THE FOLLOWING DIAGNOSIS: No Acute Heart Failure Is this a Heart Failure Patient?: Yes Documentation of LVEF assessment?: Planned for after discharge
[2018-07-17] MEDS: FLUTICASONE NASAL SPRAY 50 MCG/SPRY 120 SPRAY/16 GM NASL SCH (11:43)
[2018-07-17] MEDS: FUROSEMIDE INJ/PF 40 MG/4 ML SDV IV SCH (11:44)
[2018-07-17] MEDS: ATORVASTATIN CALCIUM 80 MG TABLET PO SCH (11:44)
== END 2018-07-17 11:20 | disposition home health service (06) ==
LOC: ER 15:10 → EH 22:32 → INTOOBSV 22:32 → 3N 07-17 01:45
PROVIDERS: ADMIT Internal Medicine; ATTEND Internal Medicine
DX: J96.22 Acute and chronic respiratory failure with hypercapnia (principal); J96.21 Acute and chronic respiratory failure with hypoxia; J44.9 Chronic obstructive pulmonary disease, unspecified; I50.9 Heart failure, unspecified; E11.22 Type 2 diabetes mellitus with diabetic chronic kidney disease; I13.0 Hypertensive heart and chronic kidney disease with heart failure and stage 1 through stage 4 chronic kidney disease, or unspecified chronic kidney disease; N18.3 Chronic kidney disease, stage 3 (moderate); I27.20 Pulmonary hypertension, unspecified; G47.33 Obstructive sleep apnea (adult) (pediatric); F17.210 Nicotine dependence, cigarettes, uncomplicated; K59.00 Constipation, unspecified; R63.0 Anorexia; R53.1 Weakness; Z99.81 Dependence on supplemental oxygen; Z91.14 Patient's other noncompliance with medication regimen; Z79.4 Long term (current) use of insulin; Z98.890 Other specified postprocedural states; Z82.49 Family history of ischemic heart disease and other diseases of the circulatory system; Z82.5 Family history of asthma and other chronic lower respiratory diseases
CPT/HCPCS: 93005; 99285; 96374; 96375; 82962; 82803 ×2; 83735; 85025 ×2; 80048; 80053; 81001; 84484 ×2; 83036; 83880; 71045; 93010; 36600; 94660; 94640 ×2; J3490 ×4; J1940 ×2; J1815; J2270; J2405; J3480; J7620; 36415; G0378

== ENCOUNTER 2018-07-29 00:57 | Emergency (ER) | payer MEDICAID ==
[2018-07-29] MEDS ORDERED: METHYLPREDNISOLONE INJ 125 MG/2 ML SDV IV ONE (01:15)
[2018-07-29] MEDS ORDERED: IPRATROPIUM/ALBUTEROL 0.5-2.5 MG/3 ML AMPUL NEB ONE ×2 (01:16→03:15)
[2018-07-29 01:33] LABS: VENOUS BLOOD BASE EXCESS 7.8 mmol/L; VENOUS BLOOD PCO2 61.8 mmHg (35-63); VENOUS BLOOD PH 7.37 (7.30-7.42)
[2018-07-29 01:34] LABS: ABSOLUTE BASOPHILS # (AUTO) 0.1 10^3/uL (0.0-0.2); ABSOLUTE EOSINOPHILS # (AUTO) 0.2 10^3/uL (0.0-0.6); ABSOLUTE LYMPHOCYTES (AUTO) 0.8 10^3/uL (0.5-4.7); ABSOLUTE MONOCYTES (AUTO) 0.4 10^3/uL (0.1-1.4); ABSOLUTE NEUT (AUTO) 3.6 10^3/uL (1.7-8.2); BASOPHILS % (AUTO) 1.2 % (0-2); EOSINOPHILS % (AUTO) 3.2 % (0-6); HEMOGLOBIN 11.3 g/dL (12.0-15.5); LYMPHOCYTES % (AUTO) 16.4 % (13-45); MEAN CORPUSCULAR HGB CONC 30.6 g/dL (32.0-36.0); MEAN CORPUSCULAR VOLUME 82 fl (80-97); MONOCYTES % (AUTO) 7.9 % (3-13); PLATELET COUNT 138 10^3/uL (150-450); RED BLOOD COUNT 4.53 10^6/uL (3.72-5.28); RED CELL DISTRIBUTION WIDTH 20.8 % (11.5-14.0); SEGMENTED NEUTROPHILS % (AUTO) 71.3 % (42-78); TOTAL CELLS COUNTED % (AUTO) 100 %; WHITE BLOOD COUNT 5.1 10^3/uL (4.0-10.5)
[2018-07-29 01:57] LABS: ALANINE AMINOTRANSFERASE 18 U/L (9-52); ALBUMIN 3.2 g/dL (3.5-5.0); ALKALINE PHOSPHATASE 137 U/L (38-126); ANION GAP 7 (5-19); ASPARTATE AMINO TRANSFERASE 16 U/L (14-36); BILIRUBIN,DIRECT 0.3 mg/dL (0.0-0.4); BILIRUBIN,TOTAL 0.8 mg/dL (0.2-1.3); BLOOD UREA NITROGEN 32 mg/dL (7-20); CARBON DIOXIDE 33 mmol/L (22-30); CHLORIDE 100 mmol/L (98-107); GLUCOSE 147 mg/dL (75-110); POTASSIUM 3.8 mmol/L (3.6-5.0); SODIUM 140.3 mmol/L (137-145); TOTAL PROTEIN 5.5 g/dL (6.3-8.2)
[2018-07-29] MEDS ORDERED: OXYCODONE HCL IR 5 MG TABLET PO ONE (02:05)
[2018-07-29 02:07] LABS: TROPONIN I 0.026 ng/mL
--- NOTE | 2018-07-29 02:07 | RADIOLOGY REPORT (SQ) ---
EXAM DESCRIPTION: XR CHEST 1 VIEW COMPLETED DATE/TME: 07/29/2018 01:14 CLINICAL HISTORY: 63 years Female, dyspnea COMPARISON: 07/16/18 NUMBER OF VIEWS/TECHNIQUE: 1/AP FINDINGS: Moderate patchy opacity of the right lower lung field. Moderate interstitial markings. Interval worsening. Normal cardiac silhouette. No pneumothorax. Stable bony thorax. IMPRESSION: Moderate patchy opacity of the right lower lung field. Moderate interstitial markings. Interval worsening.
[2018-07-29] MEDS ORDERED: OXYMETAZOLINE HCL 0.05% NASAL SPRAY 15 ML BOTTLE NASL ONE (03:15)
--- NOTE | 2018-07-29 05:22 | ER Document Report ---
ED General - General Chief Complaint: Shortness Of Breath Stated Complaint: DIFFICULTY BREATHING Time Seen by Provider: 07/29/18 01:14 Primary Care Provider: JENNIFER NOLASCO MD [Primary Care Provider] - Follow up as needed TRAVEL OUTSIDE OF THE [place] IN LAST 30 DAYS: No - HPI Notes: Patient is a 63-year-old female with a history of significant COPD, oxygen dependent, who presents to the emergency department for evaluation of dyspnea. She states she was sitting on her couch when she became acutely short of breath. When the ambulance met her she was not on her home oxygen, she had a pulse ox in the 70s. She was given duo nebs, steroids, placed on oxygen in route. She states she is not coughing more than normal. No fevers or chills. She is eating and drinking normally. She has an appointment with her chimney sweeper at [place] on Thursday morning. - Related Data Allergies/Adverse Reactions: Sulfa (Sulfonamide Antibiotics) Allergy (Verified 02/18/16 03:50) Past Medical History - Social History Smoking Status: Current Every Day Smoker Frequency of alcohol use: None Drug Abuse: None Family History: COPD, Hypertension Patient has suicidal ideation: No Patient has homicidal ideation: No - Past Medical History Cardiac Medical History: Reports: Hx Congestive Heart Failure, Hx Hypertension Pulmonary Medical History: Reports: Hx COPD - O2 dependent COPD, Hx Sleep Apnea Endocrine Medical History: Reports: Hx Diabetes Mellitus Type 2 Renal/ Medical History: Denies: Hx Peritoneal Dialysis Musculoskeletal Medical History: Reports Hx Gout Psychiatric Medical History: Reports: Hx Depression Past Surgical History: Reports: Hx Section, Hx Hysterectomy, Hx Orthopedic Surgery - Bilateral carpal tunnel surgery, back surgery., Hx Vascular Surgery - Bilateral carotid endarterectomies - Immunizations Hx Diphtheria, Pertussis, Tetanus Vaccination: Yes Hx Pneumococcal Vaccination: 02/23/09 Review of Systems - Review of Systems Constitutional: No symptoms reported EENT: No symptoms reported Cardiovascular: No symptoms reported Respiratory: See HPI Gastrointestinal: No symptoms reported Genitourinary: No symptoms reported Musculoskeletal: No symptoms reported Skin: No symptoms reported Neurological/Psychological: No symptoms reported Physical Exam - Vital signs Vitals: Temp 98.8 F 07/29/18 00:57 - Notes Notes: Patient is a 63-year-old female, appears much older than her stated age, no acute distress. Head is normocephalic and atraumatic. Pupils are equal round, reactive to light. Oral mucosa is moist. Neck is supple without meningismus. Heart is regular rate and rhythm. Lungs show diminished breath sounds with expiratory wheezes and prolonged expiratory phase. Abdomen soft, nontender, normoactive bowel sounds. Extremities without cyanosis or clubbing. She does have 2-3+ pretibial edema with chronic appearing erythema to bilateral lower extremities. Peripheral pulses are equal. No posterior calf tenderness. Skin is warm and dry. Course - Re-evaluation Re-evalutation: 07/29/18 05:22 Patient presents to the emergency department for evaluation. She was given further duo nebs here. Placed on oxygen per nasal cannula. Laboratory investigations were largely unremarkable. Patient's chest x-ray was interpreted by myself as well as radiology. Radiology called a worsening of her right lower lobe changes. I did review multiple films. These are all largely unchanged. The patient states she feels completely back to baseline. She denies any current dyspnea. She was treated here in route with steroids, received DuoNeb. On further questioning the patient states she does have a home pulse oximeter. She states that it is not uncommon for her oxygen to be in the mid 80s while at home on her normal oxygen. She remains moderately hypoxic here. I did not feel comfortable increasing her oxygen significantly, as I was concerned about making her cephalopathic/retain CO2. Her proBNP is back to normal after her recent CHF admission and diuresis. I explained my concerns to the patient. She states she feels entirely back to baseline. I do at this point believe it is most appropriate to send her home. I certainly want her to keep her appointment with her chimney sweeper on Thursday. I explained to her that should she have any worsening of her difficulty breathing she needs to return, and she voiced understanding to this. We will send her home with steroids. She is to return to the emergency department with worsening or new concerning symptoms of any sort. 07/29/18 05:24 - Vital Signs Vital signs: Temp Pulse Resp BP Pulse Ox 98.4 F 80 17 104/49 L 85 L 07/29/18 01:04 07/29/18 01:04 07/29/18 04:32 07/29/18 04:32 07/29/18 04:32 - Laboratory Result Diagrams: 07/29/18 01:15 07/29/18 01:15 Laboratory results interpreted by me: 07/29/18 07/29/18 07/29/18 01:15 01:15 01:15 Hgb 11.3 L MCH 25.0 L MCHC 30.6 L RDW 20.8 H Plt Count 138 L VBG HCO3 35.0 H Carbon Dioxide 33 H BUN 32 H Creatinine 1.39 H Est GFR ( Amer) 46 L Est GFR (Non-Af Amer) 38 L Glucose 147 H Alkaline Phosphatase 137 H Total Protein 5.5 L Albumin 3.2 L - Diagnostic Test Radiology reviewed: Reports reviewed Radiology results interpreted by me: 07/29/18 05:24 Chest X-Ray 07/29/18 01:14 IMPRESSION: Moderate patchy opacity of the right lower lung field. Moderate interstitial markings. Interval worsening. - EKG Interpretation by Me Additional EKG results interpreted by me: 07/29/18 05:25 Sinus tachycardia with a rate of 106 bpm. Normal axis and intervals, no acute ST changes concerning for ischemia or infarction. No significant change when compared to prior study of July 16, 2018. Discharge - Discharge Clinical Impression: Hypoxia, Thrombocytopenia COPD (chronic obstructive pulmonary disease) Qualifiers: COPD type: COPD with acute exacerbation Qualified Code(s): J44.1 - Chronic obstructive pulmonary disease with (acute) exacerbation Condition: Stable Disposition: HOME, SELF-CARE Instructions: Chronic Obstructive Lung Disease ([facility]) Additional Instructions: Take steroids as directed. Follow-up with your chimney sweeper as scheduled. If you develop worsening or new concerning symptoms of any sort, return immediately to the emergency department for reevaluation. Referrals: JENNIFER NOLASCO MD [Primary Care Provider] - Follow up as needed
[2018-07-29 06:02] VITALS: BP 122/53
--- NOTE | 2018-07-29 07:43 | EKG REPORT ---
SEVERITY:- BORDERLINE ECG - SINUS TACHYCARDIA BORDERLINE R WAVE PROGRESSION, ANTERIOR LEADS : Confirmed by: Carlos Carmen MD 29-Jul-2018 07:42:07
== END 2018-07-29 06:00 | disposition home or self-care (01) ==
LOC: ER 00:57
DX: R09.02 Hypoxemia (principal); D69.6 Thrombocytopenia, unspecified; J44.1 Chronic obstructive pulmonary disease with (acute) exacerbation; F17.200 Nicotine dependence, unspecified, uncomplicated; I50.9 Heart failure, unspecified; I11.0 Hypertensive heart disease with heart failure; E11.9 Type 2 diabetes mellitus without complications; Z88.2 Allergy status to sulfonamides; Z99.81 Dependence on supplemental oxygen; Z90.710 Acquired absence of both cervix and uterus
CPT/HCPCS: 93005; 94640 ×2; 99285; 36415; 87040; 85025; 80053; 84484; 82803; 83605; 83880; 71045; 93010; J3490 ×2; J7620

== ENCOUNTER 2018-08-14 23:37 | Inpatient (IN) | payer MEDICAID ==
[2018-08-15 00:13] LABS: VENOUS BLOOD HCO3 31.1 mmol/L (20-32); VENOUS BLOOD PCO2 64.6 mmHg (35-63); VENOUS BLOOD PH 7.3 (7.30-7.42)
[2018-08-15 00:28] LABS: ALANINE AMINOTRANSFERASE 28 U/L (9-52); ALBUMIN 3.8 g/dL (3.5-5.0); ALKALINE PHOSPHATASE 104 U/L (38-126); ANION GAP 8 (5-19); ASPARTATE AMINO TRANSFERASE 22 U/L (14-36); BILIRUBIN,DIRECT 0.4 mg/dL (0.0-0.4); BILIRUBIN,TOTAL 1.1 mg/dL (0.2-1.3); BLOOD UREA NITROGEN 62 mg/dL (7-20); CALCIUM 9.2 mg/dL (8.4-10.2); CARBON DIOXIDE 31 mmol/L (22-30); CHLORIDE 97 mmol/L (98-107); GLUCOSE 218 mg/dL (75-110); POTASSIUM 4.7 mmol/L (3.6-5.0); SODIUM 135.9 mmol/L (137-145)
--- NOTE | 2018-08-15 01:01 | ER Document Report ---
ED General - General Chief Complaint: Shortness Of Breath Stated Complaint: ALTERED MENTAL STATUS Time Seen by Provider: 08/14/18 23:41 Notes: Patient is a 63-year-old female on 5 L oxygen at home, who presents to the emergency department with altered mental status. EMS is at bedside to provide history. EMS called because the patient was on the floor and EMS states that she had altered mental status. Family is at bedside to provide any additional history. Patient denies any chest pain, abdominal pain, or any other symptoms. She is confused and cannot tell me what year it is. Patient is currently taking Symbicort, Bumex, Humalog, MiraLAX, senna, Flonase, gabapentin, Lantus, and Lyrica. EMS states that she also does take pain medication and she took it this evening. Patient does have osteoarthritis. TRAVEL OUTSIDE OF THE [place] IN LAST 30 DAYS: No - Related Data Allergies/Adverse Reactions: Sulfa (Sulfonamide Antibiotics) Allergy (Verified 02/18/16 03:50) Past Medical History - Social History Smoking Status: Unknown if Ever Smoked Family History: COPD, Hypertension - Past Medical History Cardiac Medical History: Reports: Hx Congestive Heart Failure, Hx Hypertension Pulmonary Medical History: Reports: Hx COPD - O2 dependent COPD, Hx Sleep Apnea Endocrine Medical History: Reports: Hx Diabetes Mellitus Type 2 Renal/ Medical History: Denies: Hx Peritoneal Dialysis Musculoskeletal Medical History: Reports Hx Gout Psychiatric Medical History: Reports: Hx Depression Past Surgical History: Reports: Hx Section, Hx Hysterectomy, Hx Orthopedic Surgery - Bilateral carpal tunnel surgery, back surgery., Hx Vascular Surgery - Bilateral carotid endarterectomies - Immunizations Hx Diphtheria, Pertussis, Tetanus Vaccination: Yes Hx Pneumococcal Vaccination: 02/23/09 Review of Systems - Review of Systems -: Yes ROS unobtainable due to patient's medical condition Physical Exam - Vital signs Vitals: Resp BP Pulse Ox 19 113/65 88 L 08/14/18 23:54 08/14/18 23:54 08/14/18 23:54 - Notes Notes: PHYSICAL EXAMINATION: GENERAL: Appears chronically ill, older than stated age, well-nourished, no acute distress. HEAD: Normocephalic, atraumatic. EYES: PERRL, conjunctiva normal, all extraocular movements intact, sclera nonicteric ENT: Moist mucous membranes. NECK: Supple, no noticeable swelling, redness, rash. Normal range of motion. LUNGS: Equal breath sounds bilaterally and diminished throughout all lung wilder. No wheezes rales or rhonchi. CARDIOVASCULAR: S1-S2, regular rate, regular rhythm. Radial pulses 2+, normal. ABDOMEN: Normoactive bowel sounds. Soft, nontender, no guarding, no rebound tenderness, and no masses palpated. EXTREMITIES: Normal strength and range of motion, no pitting or edema. No cyanosis. NEUROLOGICAL: Moves all extremities upon command. Strength 5/5 in all extremities. PSYCH: Normal mood, normal affect. SKIN: Warm, dry. No rash, lesions, ulcerations noted. Normal skin turgor. Course - Re-evaluation Re-evalutation: 08/15/18 00:30 Patient's chemistry shows she is uremic with a creatinine of 2.83. This is a worsening creatinine from her she was seen earlier this month. Her CBC does not show leukocytosis, but she does have a bandemia of 5. Her bands are currently at 5. Her chest x-ray shows atelectasis. CT of the head was negative for any intracranial bleed. Blood gas shows a CO2 of 65. 08/15/18 01:22 Patient's BNP is 2390. She will receive a dose of Lasix to help see if her mental status will improve. I assessed her again and she seems more alert, but still mildly confused. She states that her knee still do hurt. X-rays will be obtained of bilateral knees. 08/15/18 03:38 Bilateral knee x-rays show osteoarthritis, consistent with her history. I spoke with Dr. Hall, the hospitalist doctor christian science practitioner. He will admit the patient to the telemetry unit under observation. - Vital Signs Vital signs: Temp Pulse Resp BP Pulse Ox 98.2 F 80 12 138/68 H 93 08/15/18 07:48 08/15/18 07:48 08/15/18 07:48 08/15/18 07:48 08/15/18 07:48 - Laboratory Result Diagrams: 08/15/18 00:40 08/14/18 23:55 Laboratory results interpreted by me: 08/14/18 08/14/18 08/14/18 23:55 23:55 23:55 MCH MCHC RDW Plt Count Seg Neuts % (Manual) Lymphocytes % (Manual) VBG pCO2 64.6 H Sodium 135.9 L Chloride 97 L Carbon Dioxide 31 H BUN 62 H Creatinine 2.83 H Est GFR ( Amer) 20 L Est GFR (Non-Af Amer) 17 L Glucose 218 H NT-Pro-B Natriuret Pep 2390 H Total Protein 6.0 L 08/15/18 00:40 MCH 25.3 L MCHC 31.3 L RDW 20.9 H Plt Count 144 L Seg Neuts % (Manual) 79 H Lymphocytes % (Manual) 7 L VBG pCO2 Sodium Chloride Carbon Dioxide BUN Creatinine Est GFR ( Amer) Est GFR (Non-Af Amer) Glucose NT-Pro-B Natriuret Pep Total Protein - EKG Interpretation by Me Additional EKG results interpreted by me: 08/15/18 01:27 Sinus tachycardia. Rate 103. MD 140; QRS 80; QT 328; QTc [address] elevations or depressions noted. Discharge - Discharge Clinical Impression: Hypoxia, COPD exacerbation Altered mental status Qualifiers: Altered mental status type: unspecified Qualified Code(s): R41.82 - Altered mental status, unspecified Acute on chronic kidney failure Qualifiers: Acute renal failure type: unspecified Chronic kidney disease stage: unspecified stage Qualified Code(s): N17.9 - Acute kidney failure, unspecified Condition: Fair Disposition: ADMITTED OBSERVATION Admitting Provider: Rafael (Hospitalist) Unit Admitted: Telemetry
--- NOTE | 2018-08-15 01:02 | RADIOLOGY REPORT (SQ) ---
EXAM DESCRIPTION: XR CHEST 1 VIEW COMPLETED DATE/TME: 08/14/2018 23:50 CLINICAL HISTORY: 63 years, Female, AMS COMPARISON: X-ray chest 07/29/2018 NUMBER OF VIEWS: TECHNIQUE: LIMITATIONS: None. FINDINGS: There is mild right basilar atelectasis. There is mild interstitial pulmonary thickening. No evidence of acute pulmonary infiltrate or pleural effusion. The heart is normal in size. Pulmonary vascularity appears normal. IMPRESSION: No acute finding. Other findings as described. copyright 2010 [employer]- All Rights Reserved
--- NOTE | 2018-08-15 01:04 | RADIOLOGY REPORT (SQ) ---
EXAM DESCRIPTION: CT HEAD WITHOUT IV CONTRAST COMPLETED DATE/TME: 08/14/2018 23:50 CLINICAL HISTORY: 63 years, Female, AMS COMPARISON: None. TECHNIQUE: Axial images of the head were performed without the use of intravenous contrast, with sagittal and coronal reformatted images. Images stored on PACS. All CT scanners at this facility use dose modulation, iterative reconstruction, and/or weight based dosing when appropriate to reduce radiation dose to as low as reasonably achievable (ALARA). [facility]: Dose Right [facility]: CareDose [facility]: Dose Right [facility]: Teradose 4D [facility]: [employer] LIMITATIONS: None. FINDINGS: No evidence of acute hemorrhage or infarct. No evidence of mass or hydrocephalus. There is cortical atrophy and chronic white matter ischemic changes. IMPRESSION: No acute finding. TECHNICAL DOCUMENTATION: Quality ID # [id number]: Final reports with documentation of one or more dose reduction techniques (e.g., Automated exposure control, adjustment of the mA and/or kV according to patient size, use of iterative reconstruction technique) copyright 2011 [employer]- All Rights Reserved
[2018-08-15 01:05] LABS: TROPONIN I 0.03 ng/mL
[2018-08-15] MEDS ORDERED: METHYLPREDNISOLONE INJ 125 MG/2 ML SDV IV ONE (01:05)
[2018-08-15 01:16] LABS: HEMATOCRIT 38.5 % (36.0-47.0); MEAN CORPUSCULAR HEMOGLOBIN 25.3 pg (27.0-33.4); MEAN CORPUSCULAR HGB CONC 31.3 g/dL (32.0-36.0); MEAN CORPUSCULAR VOLUME 81 fl (80-97); PLATELET COUNT 144 10^3/uL (150-450); RED BLOOD COUNT 4.77 10^6/uL (3.72-5.28); RED CELL DISTRIBUTION WIDTH 20.9 % (11.5-14.0); WHITE BLOOD COUNT 6.5 10^3/uL (4.0-10.5)
[2018-08-15 01:19] LABS: ABSOLUTE LYMPHOCYTES# (MANUAL) 0.6 10^3/uL (0.5-4.7); ABSOLUTE MONOCYTES # (MANUAL) 0.5 10^3/uL (0.1-1.4); ANISOCYTOSIS 2+; BAND NEUTROPHILS % (MANUAL) 5 % (3-5); BASOPHILS % (MANUAL) 0 % (0-2); EOSINOPHILS % (MANUAL) 0 % (0-6); HYPOCHROMASIA 1+; LYMPHOCYTES % (MANUAL) 7 % (13-45); MONOCYTES % (MANUAL) 7 % (3-13); PLATELET COMMENT ADEQUATE; SEGMENTED NEUTROPHILS % (MAN) 79 % (42-78); TOTAL CELLS COUNTED 100
[2018-08-15] MEDS ORDERED: FUROSEMIDE INJ/PF 40 MG/4 ML SDV IV ONE (01:21)
[2018-08-15 01:24] LABS: APPEARANCE,URINE CLEAR; BILIRUBIN,URINE NEGATIVE (NEGATIVE); COLOR,URINE YELLOW; GLUCOSE, URINE NEGATIVE (NEGATIVE); KETONES,URINE NEGATIVE (NEGATIVE); LEUKOCYTE ESTERASE,URINE NEGATIVE (NEGATIVE); NITRITE,URINE NEGATIVE (NEGATIVE); PROTEIN,URINE NEGATIVE (NEGATIVE); URINE SPECIFIC GRAVITY 1.012; UROBILINOGEN,URINE NEGATIVE mg/dL (<2.0)
--- NOTE | 2018-08-15 02:58 | RADIOLOGY REPORT (SQ) ---
EXAM DESCRIPTION: XR KNEE 1-2 VIEWS BILATERAL COMPLETED DATE/TME: 08/15/2018 01:43 CLINICAL HISTORY: 63 years, Female, knee pain COMPARISON: None. NUMBER OF VIEWS: Four TECHNIQUE: AP and lateral views of the bilateral knees LIMITATIONS: None. FINDINGS: There is no acute fracture or dislocation of either knee. There is severe tricompartmental joint space narrowing, worse along the medial compartment along the both knees with large heterotopic calcifications. No large soft tissue swelling or radiopaque foreign body. Bilateral small suprapatellar joint effusions are present. IMPRESSION: No acute fracture or dislocation of either knee. Severe osteoarthritis involving both knees, worse along the medial compartments. copyright 2010 [employer]- All Rights Reserved
[2018-08-15] MEDS ORDERED: MAGNESIUM HYDROXIDE SUSP 30 ML UDCUP PO PRN (03:47)
[2018-08-15] MEDS ORDERED: MAG HYDROX/AL HYDROX/SIMETH SUSP 30 ML UDCUP PO PRN (03:47)
[2018-08-15] MEDS ORDERED: IPRATROPIUM/ALBUTEROL 0.5-2.5 MG/3 ML AMPUL NEB PRN (03:47)
[2018-08-15] MEDS ORDERED: NORMAL SALINE 1000 ML 1,000 ML IV ONE (03:50)
[2018-08-15 03:58] LABS: URINE AMPHETAMINES SCREEN NEGATIVE; URINE BARBITURATES SCREEN NEGATIVE; URINE BENZODIAZEPINES SCREEN NEGATIVE; URINE COCAINE SCREEN NEGATIVE; URINE MARIJUANA (THC) SCREEN NEGATIVE; URINE METHADONE SCREEN NEGATIVE; URINE PHENCYCLIDINE SCREEN NEGATIVE
[2018-08-15] MEDS ORDERED: LACTULOSE SYRUP 20 GM/30 ML UDCUP PO ONE (04:11)
--- NOTE | 2018-08-15 05:04 | PDOC H&P ---
History of Present Illness Admission Date/PCP: 08/15/18 03:45 JENNIFER NOLASCO MD Patient complains of: Altered mental status History of Present Illness: TAI FAN is a 63 year old female with a past medical history of persistent tobacco dependence, oxygen dependent COPD, obstructive sleep apnea with BiPAP noncompliance, congestive heart failure, CKD 3, insulin-dependent diabetes chronic pain and restless leg syndrome. She is found by EMS on the ground with altered mental status family is at bedside unable to provide additional history patient is currently confused oriented x2 she is unclear of her regular medications with exception to Lyrica and Percocet. Her work-up is notable for prerenal azotemia and hypercapnia. She started on BiPAP and IV fluids and referred to the hospitalist for admission. Patient has at least 2 similar ER presentations resulting in supportive care and rapid improvement of mental status and patient requesting discharge home. Past Medical History Cardiac Medical History: Reports: Congestive Heart Failure, Hypertension Pulmonary Medical History: Reports: Chronic Obstructive Pulmonary Disease (COPD) - O2 dependent COPD, Sleep Apnea Endocrine Medical History: Reports: Diabetes Mellitus Type 2 Musculoskeltal Medical History: Reports: Gout Psychiatric Medical History: Reports: Depression, Tobacco Dependency Past Surgical History Past Surgical History: Reports: Section, Hysterectomy, Orthopedic Surgery - Bilateral carpal tunnel surgery, back surgery., Vascular Surgery - Bilateral carotid endarterectomies Social History Information Source: Patient, Emergency Med Personnel, [facility] Records Lives with: Alone Smoking Status: Current Every Day Smoker Frequency of Alcohol Use: None Hx Recreational Drug Use: No Drugs: None Hx Prescription Drug Abuse: Yes - Suspected Percocet misuse - Advance Directive Resuscitation Status: Full Code Family History Family History: COPD, Hypertension Parental Family History Reviewed: Yes Children Family History Reviewed: Yes Sibling(s) Family History Reviewed.: Yes Medication/Allergy Home Medications: Allopurinol [Zyloprim 300 mg Tablet] 300 mg PO DAILY 10/12/17 Atorvastatin Calcium [Lipitor 80 mg Tablet] 80 mg PO DAILY 10/12/17 Bupropion HCl [Bupropion HCl Sr] 100 mg PO Q12 10/12/17 Ergocalciferol (Vitamin D2) [Drisdol 50,000 unit (1.25MG) Capsule] 50,000 unit PO NIEVES@1000 10/12/17 Fluticasone Propionate [Flonase Nasal [place] 50 Mcg/[place] 16 gm] 2 spray NASL DAILY 10/12/17 Fluticasone/Salmeterol [Advair 500-50 Diskus 14 Dose/Diskus] 1 puff IH Q12 10/12/17 Gabapentin [Neurontin 300 mg Capsule] 600 mg PO Q6 10/12/17 Insulin Glargine,Hum.rec.anlog [Lantus Solostar] 70 unit SQ QAM 10/12/17 Latanoprost [Xalatan 0.005% Oph Soln 2.5 ml] 1 drop OU QHS 10/12/17 Magnesium Oxide [Mag-Ox 400 mg Tablet] 400 mg PO BID 10/12/17 Nicotine Polacrilex [Nicorette] 2 mg PO Q4HP PRN 10/12/17 Nicotine [Nicotrol] 10 mg IH Q3HP PRN 10/12/17 Omeprazole 40 mg PO DAILY 10/12/17 Oxycodone HCl [Oxycodone HCl 10 MG Tablet] 10 mg PO Q6HP PRN 10/12/17 Pregabalin [Lyrica 75 mg Capsule] 75 mg PO Q12 10/12/17 Ranitidine HCl [Zantac 150 mg Tablet] 150 mg PO QHS 10/12/17 Roflumilast [Daliresp 500 mcg Tablet] 500 mcg PO DAILY 10/12/17 Torsemide 100 mg PO DAILY 10/12/17 Levofloxacin [Levaquin 500 mg Tablet] 500 mg PO DAILY #5 tablet 10/14/17 Prednisone 40 mg PO DAILY #4 tablet 10/14/17 Prednisone [Deltasone 20 mg Tablet] 3 tab PO DAILY 5 Days #15 tablet 07/29/18 Allergies/Adverse Reactions: Sulfa (Sulfonamide Antibiotics) Allergy (Verified 02/18/16 03:50) Review of Systems ROS unobtainable: Due to mental status Physical Exam Vital Signs: Temp Pulse Resp BP Pulse Ox 99.8 F 14 108/47 L 94 08/15/18 00:01 08/15/18 04:06 08/15/18 03:01 08/15/18 04:06 General appearance: PRESENT: no acute distress, cooperative, disheveled Head exam: PRESENT: atraumatic, normocephalic Eye exam: PRESENT: EOMI, PERRLA, other - Constricted pupils 1.5 mm and symmetric Ear exam: PRESENT: bleeding Mouth exam: PRESENT: dry mucosa, tongue midline Neck exam: ABSENT: carotid bruit, JVD, lymphadenopathy, thyromegaly Respiratory exam: PRESENT: decreased breath sounds, prolonged expiratory phas, symmetrical. ABSENT: rales, rhonchi, wheezes Cardiovascular exam: PRESENT: RRR. ABSENT: diastolic murmur, rubs, systolic murmur Pulses: PRESENT: normal dorsalis pedis pul Vascular exam: PRESENT: normal capillary refill GI/Abdominal exam: PRESENT: hypoactive bowel sounds, normal bowel sounds, soft. ABSENT: distended, guarding, mass, organolmegaly, rebound, tenderness Rectal exam: PRESENT: deferred Extremities exam: PRESENT: +1 edema, other - Chronic changes no open ulcer Neurological exam: PRESENT: alert, altered, awake, oriented to person, oriented to place, CN II-XII grossly intact Psychiatric exam: PRESENT: appropriate affect, normal mood. ABSENT: homicidal ideation, suicidal ideation Skin exam: PRESENT: dry, intact, warm. ABSENT: cyanosis, rash Results Laboratory Results: 08/15/18 00:40 08/14/18 23:55 08/14/18 08/14/18 08/14/18 23:55 23:55 23:55 WBC Cancelled RBC Cancelled Hgb Cancelled Hct Cancelled MCV Cancelled MCH Cancelled MCHC Cancelled RDW Cancelled Plt Count Cancelled Seg Neutrophils % Cancelled Lymphocytes % Cancelled Monocytes % Cancelled Eosinophils % Cancelled Basophils % Cancelled Absolute Neutrophils Cancelled Absolute Lymphocytes Cancelled Absolute Monocytes Cancelled Absolute Eosinophils Cancelled Absolute Basophils Cancelled VBG pH 7.30 VBG pCO2 64.6 H VBG HCO3 31.1 VBG Base Excess 3.0 Sodium 135.9 L Potassium 4.7 Chloride 97 L Carbon Dioxide 31 H Anion Gap 8 BUN 62 H Creatinine 2.83 H Est GFR ( Amer) 20 L Est GFR (Non-Af Amer) 17 L Glucose 218 H Lactic Acid Calcium 9.2 Total Bilirubin 1.1 AST 22 ALT 28 Alkaline Phosphatase 104 Total Protein 6.0 L Albumin 3.8 TSH Urine Color Urine Appearance Urine pH Ur Specific [place] Urine Protein Urine Glucose (UA) Urine Ketones Urine Blood Urine Nitrite Ur Leukocyte Esterase Urine WBC (Auto) Urine RBC (Auto) 08/14/18 08/14/18 08/15/18 23:55 23:55 00:40 WBC 6.5 RBC 4.77 Hgb 12.0 Hct 38.5 MCV 81 MCH 25.3 L MCHC 31.3 L RDW 20.9 H Plt Count 144 L Seg Neutrophils % Not Reportable Lymphocytes % Not Reportable Monocytes % Not Reportable Eosinophils % Not Reportable Basophils % Not Reportable Absolute Neutrophils Not Reportable Absolute Lymphocytes Not Reportable Absolute Monocytes Not Reportable Absolute Eosinophils Not Reportable Absolute Basophils Not Reportable VBG pH VBG pCO2 VBG HCO3 VBG Base Excess Sodium Potassium Chloride Carbon Dioxide Anion Gap BUN Creatinine Est GFR ( Amer) Est GFR (Non-Af Amer) Glucose Lactic Acid 1.1 Calcium Total Bilirubin AST ALT Alkaline Phosphatase Total Protein Albumin TSH 3.37 Urine Color Urine Appearance Urine pH Ur Specific [place] Urine Protein Urine Glucose (UA) Urine Ketones Urine Blood Urine Nitrite Ur Leukocyte Esterase Urine WBC (Auto) Urine RBC (Auto) 08/15/18 00:58 WBC RBC Hgb Hct MCV MCH MCHC RDW Plt Count Seg Neutrophils % Lymphocytes % Monocytes % Eosinophils % Basophils % Absolute Neutrophils Absolute Lymphocytes Absolute Monocytes Absolute Eosinophils Absolute Basophils VBG pH VBG pCO2 VBG HCO3 VBG Base Excess Sodium Potassium Chloride Carbon Dioxide Anion Gap BUN Creatinine Est GFR ( Amer) Est GFR (Non-Af Amer) Glucose Lactic Acid Calcium Total Bilirubin AST ALT Alkaline Phosphatase Total Protein Albumin TSH Urine Color YELLOW Urine Appearance CLEAR Urine pH 5.0 Ur Specific [place] 1.012 Urine Protein NEGATIVE Urine Glucose (UA) NEGATIVE Urine Ketones NEGATIVE Urine Blood NEGATIVE Urine Nitrite NEGATIVE Ur Leukocyte Esterase NEGATIVE Urine WBC (Auto) 1 Urine RBC (Auto) 1 08/14/18 23:55 Troponin I 0.030 NT-Pro-B Natriuret Pep 2390 H Impressions: Chest X-Ray 08/14/18 23:50 IMPRESSION: No acute finding. Other findings as described. copyright 2010 [employer]- All Rights Reserved Head CT 08/14/18 23:50 IMPRESSION: No acute finding. TECHNICAL DOCUMENTATION: Quality ID # [id number]: Final reports with documentation of one or more dose reduction techniques (e.g., Automated exposure control, adjustment of the mA and/or kV according to patient size, use of iterative reconstruction technique) copyright 2010 [employer]- All Rights Reserved Knee X-Ray 08/15/18 01:43 IMPRESSION: No acute fracture or dislocation of either knee. Severe osteoarthritis involving both knees, worse along the medial compartments. copyright 2010 [employer]- All Rights Reserved Assessment and Plan - Diagnosis (1) Acute on chronic kidney failure Qualifiers: Acute renal failure type: unspecified Chronic kidney disease stage: uns pecified stage Qualified Code(s): N17.9 - Acute kidney failure, unspecified; N18.9 - Chronic kidney disease, unspecified Is this a current diagnosis for this admission?: Yes Plan: Appears primarily prerenal, hold diuretics follow-up chemistry (2) Altered mental status Qualifiers: Altered mental status type: unspecified Qualified Code(s): R41.82 - Altered mental status, unspecified Is this a current diagnosis for this admission?: Yes Plan: Multifactorial suspected Percocet misuse complicated by chronic pain and chronic respiratory failure with reduced respiratory rate and hypercapnia, hypotension and acute renal failure. Limit narcotics (3) COPD exacerbation Is this a current diagnosis for this admission?: Yes Plan: Incentive spirometry, flutter valve, supplemental oxygen albuterol and Atrovent, avoid medications reducing respiratory drive (4) GARY (obstructive sleep apnea) Is this a current diagnosis for this admission?: Yes Plan: BiPAP ordered - Time Time Spent with patient: 25-34 minutes - Inpatient Certification Medical Necessity: Need Close Monitoring Due to Risk of Patient Decompensation
[2018-08-15] MEDS: HEPARIN SOD (PORCINE) 5,000 UNIT/ML 1 ML SYRINGE SUBCUT SCH ×3 (05:08→21:34)
[2018-08-15] MEDS: GABAPENTIN 300 MG CAPSULE PO SCH ×3 (05:13→17:16)
[2018-08-15] MEDS ORDERED: INSULIN GLARGINE,HUM.REC.ANLOG 1,000 UNIT/10 ML VIAL (PYX) SUBCUT SCH (08:00)
[2018-08-15] MEDS: FLUTICASONE NASAL SPRAY 50 MCG/SPRY 120 SPRAY/16 GM NASL SCH (09:23)
[2018-08-15] MEDS: ATORVASTATIN CALCIUM 80 MG TABLET PO SCH (09:23)
[2018-08-15] MEDS: DOCUSATE SODIUM 100 MG CAPSULE PO SCH ×2 (09:23→17:16)
[2018-08-15] MEDS: FLUTICASONE/VILANTEROL 200-25 MCG/DOSE IH SCH (09:23)
[2018-08-15] MEDS: MAGNESIUM OXIDE 400 MG TABLET PO SCH ×2 (09:24→17:16)
--- NOTE | 2018-08-15 09:31 | EKG REPORT ---
SEVERITY:- BORDERLINE ECG - SINUS TACHYCARDIA VENTRICULAR PREMATURE COMPLEX PROBABLE LEFT ATRIAL ABNORMALITY : Confirmed by: Bhavana Patel MD 15-Aug-2018 09:30:36
[2018-08-15] MEDS ORDERED: (PENDING PHARMACY ID) (Bupropion Hcl [Bupropion Xl] 150 MG) PO SCH (10:00)
[2018-08-15] MEDS ORDERED: (PENDING PHARMACY ID) (Bupropion Hcl [Bupropion Hcl Sr] 100 MG) PO SCH (10:00)
[2018-08-15] MEDS ORDERED: (PENDING PHARMACY ID) (Roflumilast [Daliresp 500 Mcg Tablet] 500 MCG) PO SCH (10:00)
[2018-08-15 10:52] LABS: ARTERIAL BLOOD BASE EXCESS 1.1 mmol/L; ARTERIAL BLOOD FIO2 50%; ARTERIAL BLOOD H2CO3 1.49 mmol/L (1.05-1.35); ARTERIAL BLOOD HCO3 27.2 mmol/L (20-24); ARTERIAL BLOOD O2 SATURATION 95.4 % (94-98); ARTERIAL BLOOD PCO2 49.5 mmHg (35-45); ARTERIAL BLOOD PH 7.36 (7.35-7.45); ARTERIAL BLOOD TOTAL CO2 28.7 mmol/L (21-25)
[2018-08-15] MEDS: POTASSIUM CHLORIDE 10 MEQ CAPSULE.ER PO SCH (10:55)
[2018-08-15] MEDS: PANTOPRAZOLE SODIUM 40 MG TABLET.DR PO SCH (10:56)
[2018-08-15] MEDS: TIOTROPIUM BROMIDE DPI 5 CAP/KIT (18 MCG/CAP) IH SCH (10:56)
[2018-08-15] MEDS: ROFLUMILAST 500 MCG TABLET PO SCH (10:56)
[2018-08-15] MEDS ORDERED: LIDOCAINE 5% (700 MG) TRANSDERMAL ADH..PATCH TP ONE (11:00)
[2018-08-15] MEDS ORDERED: DEXTROSE 50%-WATER SYRINGE 25 GM/50 ML DOSE IV PRN (13:30)
[2018-08-15] MEDS ORDERED: DEXTROSE 40% GEL 15 GM TUBE PO PRN (13:30)
[2018-08-15] MEDS ORDERED: DEXTROSE 50%-WATER SYRINGE 12.5 GM/25 ML DOSE IV PRN (13:30)
[2018-08-15] MEDS ORDERED: DEXTROSE 40% GEL 15 GM TUBE X 2 PO PRN (13:30)
[2018-08-15] MEDS ORDERED: GLUCAGON,HUMAN RECOMB 1 MG INJ IM PRN (13:30)
[2018-08-15] MEDS ORDERED: INSULIN LISPRO 100 UNIT/ML 3 ML VIAL SUBCUT ONE (13:45)
--- NOTE | 2018-08-15 13:45 | PDOC PROGRESS REPORT ---
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 Patient was seen on morning rounds. She was found sitting semi-Fowlers in bed on BiPAP. She was sleeping when I entered the room; woke briefly after multiple attempts but quickly fell back to sleep after answering just a couple of questions. She tells me she is at the hospital because of a fall but can't recall how/why she fell. She reports back pain and asks for her oxycodone but then falls back to sleep. Unfortunately, no family members are present to provide additional information. ROS is limited secondary to mental status. She appears to be comfortable and is not noted to be in any acute distress. No concerns per nursing. Reason For Visit: AMS GARY,HTN,ARF TOBACCO Physical Exam Vital Signs: Temp Pulse Resp BP Pulse Ox 97.6 F 70 15 124/57 L 92 08/15/18 11:00 08/15/18 11:00 08/15/18 11:51 08/15/18 11:00 08/15/18 11:51 Intake & Output 08/14/18 08/15/18 08/16/18 06:59 06:59 06:59 Intake Total 0 480 Balance 0 480 Weight 81 kg General appearance: PRESENT: no acute distress, obese, well-developed, well- nourished Head exam: PRESENT: atraumatic, normocephalic Eye exam: PRESENT: conjunctiva pink, EOMI, PERRLA. ABSENT: scleral icterus Ear exam: PRESENT: normal external ear exam Mouth exam: PRESENT: dry mucosa, tongue midline Teeth exam: PRESENT: poor dentation Neck exam: ABSENT: carotid bruit, JVD, lymphadenopathy, thyromegaly Respiratory exam: PRESENT: decreased breath sounds, prolonged expiratory phas, symmetrical, unlabored, other - Currently on BiPAP. ABSENT: rales, rhonchi, wheezes Cardiovascular exam: PRESENT: RRR. ABSENT: diastolic murmur, rubs, systolic murmur Pulses: PRESENT: normal dorsalis pedis pul Vascular exam: PRESENT: normal capillary refill GI/Abdominal exam: PRESENT: normal bowel sounds, soft. ABSENT: distended, guarding, mass, organolmegaly, rebound, tenderness Rectal exam: PRESENT: deferred Extremities exam: PRESENT: full ROM. ABSENT: calf tenderness, clubbing, pedal edema Neurological exam: PRESENT: oriented to person, CN II-XII grossly intact, other - Lethargic. ABSENT: motor sensory deficit Psychiatric exam: PRESENT: appropriate affect, normal mood. ABSENT: homicidal ideation, suicidal ideation Skin exam: PRESENT: dry, intact, warm. ABSENT: cyanosis, rash Results Laboratory Results: 08/15/18 00:40 08/14/18 23:55 08/14/18 08/14/18 08/14/18 23:55 23:55 23:55 WBC Cancelled RBC Cancelled Hgb Cancelled Hct Cancelled MCV Cancelled MCH Cancelled MCHC Cancelled RDW Cancelled Plt Count Cancelled Seg Neutrophils % Cancelled Lymphocytes % Cancelled Monocytes % Cancelled Eosinophils % Cancelled Basophils % Cancelled Absolute Neutrophils Cancelled Absolute Lymphocytes Cancelled Absolute Monocytes Cancelled Absolute Eosinophils Cancelled Absolute Basophils Cancelled Carbonic Acid HCO3/H2CO3 Ratio ABG pH ABG pCO2 ABG pO2 ABG HCO3 ABG O2 Saturation ABG Base Excess VBG pH 7.30 VBG pCO2 64.6 H VBG HCO3 31.1 VBG Base Excess 3.0 FiO2 Sodium 135.9 L Potassium 4.7 Chloride 97 L Carbon Dioxide 31 H Anion Gap 8 BUN 62 H Creatinine 2.83 H Est GFR ( Amer) 20 L Est GFR (Non-Af Amer) 17 L Glucose 218 H Lactic Acid Calcium 9.2 Total Bilirubin 1.1 AST 22 ALT 28 Alkaline Phosphatase 104 Total Protein 6.0 L Albumin 3.8 TSH Urine Color Urine Appearance Urine pH Ur Specific [place] Urine Protein Urine Glucose (UA) Urine Ketones Urine Blood Urine Nitrite Ur Leukocyte Esterase Urine WBC (Auto) Urine RBC (Auto) 08/14/18 08/14/18 08/15/18 23:55 23:55 00:40 WBC 6.5 RBC 4.77 Hgb 12.0 Hct 38.5 MCV 81 MCH 25.3 L MCHC 31.3 L RDW 20.9 H Plt Count 144 L Seg Neutrophils % Not Reportable Lymphocytes % Not Reportable Monocytes % Not Reportable Eosinophils % Not Reportable Basophils % Not Reportable Absolute Neutrophils Not Reportable Absolute Lymphocytes Not Reportable Absolute Monocytes Not Reportable Absolute Eosinophils Not Reportable Absolute Basophils Not Reportable Carbonic Acid HCO3/H2CO3 Ratio ABG pH ABG pCO2 ABG pO2 ABG HCO3 ABG O2 Saturation ABG Base Excess VBG pH VBG pCO2 VBG HCO3 VBG Base Excess FiO2 Sodium Potassium Chloride Carbon Dioxide Anion Gap BUN Creatinine Est GFR ( Amer) Est GFR (Non-Af Amer) Glucose Lactic Acid 1.1 Calcium Total Bilirubin AST ALT Alkaline Phosphatase Total Protein Albumin TSH 3.37 Urine Color Urine Appearance Urine pH Ur Specific [place] Urine Protein Urine Glucose (UA) Urine Ketones Urine Blood Urine Nitrite Ur Leukocyte Esterase Urine WBC (Auto) Urine RBC (Auto) 08/15/18 08/15/18 00:58 10:35 WBC RBC Hgb Hct MCV MCH MCHC RDW Plt Count Seg Neutrophils % Lymphocytes % Monocytes % Eosinophils % Basophils % Absolute Neutrophils Absolute Lymphocytes Absolute Monocytes Absolute Eosinophils Absolute Basophils Carbonic Acid 1.49 H HCO3/H2CO3 Ratio 18:1 ABG pH 7.36 ABG pCO2 49.5 H ABG pO2 81.0 ABG HCO3 27.2 H ABG O2 Saturation 95.4 ABG Base Excess 1.1 VBG pH VBG pCO2 VBG HCO3 VBG Base Excess FiO2 50% Sodium Potassium Chloride Carbon Dioxide Anion Gap BUN Creatinine Est GFR ( Amer) Est GFR (Non-Af Amer) Glucose Lactic Acid Calcium Total Bilirubin AST ALT Alkaline Phosphatase Total Protein Albumin TSH Urine Color YELLOW Urine Appearance CLEAR Urine pH 5.0 Ur Specific [place] 1.012 Urine Protein NEGATIVE Urine Glucose (UA) NEGATIVE Urine Ketones NEGATIVE Urine Blood NEGATIVE Urine Nitrite NEGATIVE Ur Leukocyte Esterase NEGATIVE Urine WBC (Auto) 1 Urine RBC (Auto) 1 08/14/18 23:55 Troponin I 0.030 NT-Pro-B Natriuret Pep 2390 H Impressions: Chest X-Ray 08/14/18 23:50 IMPRESSION: No acute finding. Other findings as described. copyright 2010 [employer]- All Rights Reserved Head CT 08/14/18 23:50 IMPRESSION: No acute finding. TECHNICAL DOCUMENTATION: Quality ID # 436: Final reports with documentation of one or more dose reduction techniques (e.g., Automated exposure control, adjustment of the mA and/or kV according to patient size, use of iterative reconstruction technique) copyright 2011 [employer]- All Rights Reserved Knee X-Ray 08/15/18 01:43 IMPRESSION: No acute fracture or dislocation of either knee. Severe osteoarthritis involving both knees, worse along the medial compartments. copyright 2010 [employer]- All Rights Reserved Assessment and Plan - Diagnosis (1) Acute on chronic kidney failure Qualifiers: Acute renal failure type: unspecified Chronic kidney disease stage: unspecified stage Qualified Code(s): N17.9 - Acute kidney failure, unspecified; N18.9 - Chronic kidney disease, unspecified Is this a current diagnosis for this admission?: Yes Plan: Appears primarily prerenal Patient is admitted to the medical floor on continuous telemetry. Providing IVF. Holding home dose diuretics. Will avoid nephrotoxic medications as able. Daily chemistry. (2) Altered mental status Qualifiers: Altered mental status type: unspecified Qualified Code(s): R41.82 - Altered mental status, unspecified Is this a current diagnosis for this admission?: Yes Plan: Multifactorial suspected Percocet misuse complicated by chronic pain and chronic respiratory failure with reduced respiratory rate and hypercapnia, hypotension and acute renal failure. ABG is reassuring; at baseline pCO2. Supportive care. Limit narcotics and other sedating medications (Lyrica) Fall and aspiration precautions. (3) COPD exacerbation Is this a current diagnosis for this admission?: Yes Plan: Supplemental oxygen as needed to maintain oxygen saturations >89% BiPAP as needed. Continue home dose Daliresp, Breo, and Spiriva. As needed nebulizer treatments. Incentive spirometer and flutter valve. Avoid medications reducing respiratory drive No indications for steroid or antibiotic therapy at this time. (4) GARY (obstructive sleep apnea) Is this a current diagnosis for this admission?: Yes Plan: BiPAP ordered (5) Diabetes Qualifiers: Diabetes mellitus type: type 2 Diabetes mellitus nursing home insulin use: with salvage determiner use Chronic kidney disease stage: stage 3 (moderate) Is this a current diagnosis for this admission?: Yes Plan: Patient is placed on a consistent carb/cardiac diet. Home dose Lantus as ordered. Accu-Cheks before meals and at bedtime with Humalog for sliding scale coverage. Hypoglycemia protocol in place. - Time Time Spent with patient: 15-24 minutes Medications reviewed and adjusted accordingly: Yes Anticipated discharge: Home
[2018-08-15] MEDS: NORMAL SALINE 1000 ML 1,000 ML IV PRN ×2 (13:53→22:09)
[2018-08-15] MEDS: ACETAMINOPHEN 325 MG TABLET PO PRN ×2 (16:03→21:34)
[2018-08-15] MEDS: INSULIN LISPRO 100 UNIT/ML 3 ML VIAL SUBCUT SCH ×2 (17:16→21:35)
[2018-08-15] MEDS: BUPROPION HCL 75 MG TABLET PO SCH (17:21)
[2018-08-15] MEDS: OXYCODONE HCL IR 5 MG TABLET PO PRN (19:02)
[2018-08-15] MEDS: FAMOTIDINE 20 MG TABLET PO SCH (21:35)
[2018-08-15] MEDS ORDERED: (PENDING PHARMACY ID) (Ranitidine Hcl [Zantac 150 Mg Tablet] 150 MG) PO SCH (22:00)
[2018-08-16] MEDS: GABAPENTIN 300 MG CAPSULE PO SCH ×5 (00:07→23:28)
[2018-08-16] MEDS: OXYCODONE HCL IR 5 MG TABLET PO PRN ×2 (01:05→09:21)
[2018-08-16] MEDS: ACETAMINOPHEN 325 MG TABLET PO PRN ×2 (03:23→20:17)
[2018-08-16] MEDS: HEPARIN SOD (PORCINE) 5,000 UNIT/ML 1 ML SYRINGE SUBCUT SCH ×3 (05:05→21:33)
[2018-08-16] MEDS: NORMAL SALINE 1000 ML 1,000 ML IV PRN ×3 (06:01→22:48)
[2018-08-16 06:32] LABS: ANION GAP 7 (5-19); BLOOD UREA NITROGEN 58 mg/dL (7-20); CALCIUM 8.6 mg/dL (8.4-10.2); CARBON DIOXIDE 26 mmol/L (22-30); CHLORIDE 105 mmol/L (98-107); GLUCOSE 144 mg/dL (75-110); POTASSIUM 4.6 mmol/L (3.6-5.0); SODIUM 138.4 mmol/L (137-145)
[2018-08-16] MEDS: INSULIN LISPRO 100 UNIT/ML 3 ML VIAL SUBCUT SCH ×4 (07:24→21:33)
[2018-08-16] MEDS: INSULIN GLARGINE,HUM.REC.ANLOG 1,000 UNIT/10 ML VIAL SUBCUT SCH (07:25)
[2018-08-16] MEDS: TIOTROPIUM BROMIDE DPI 5 CAP/KIT (18 MCG/CAP) IH SCH (09:17)
[2018-08-16] MEDS: FLUTICASONE NASAL SPRAY 50 MCG/SPRY 120 SPRAY/16 GM NASL SCH (09:18)
[2018-08-16] MEDS: FLUTICASONE/VILANTEROL 200-25 MCG/DOSE IH SCH (09:18)
[2018-08-16] MEDS: BUPROPION HCL 75 MG TABLET PO SCH ×2 (09:19→17:03)
[2018-08-16] MEDS: POTASSIUM CHLORIDE 10 MEQ CAPSULE.ER PO SCH (09:19)
[2018-08-16] MEDS: ATORVASTATIN CALCIUM 80 MG TABLET PO SCH (09:19)
[2018-08-16] MEDS: DOCUSATE SODIUM 100 MG CAPSULE PO SCH ×2 (09:19→17:00)
[2018-08-16] MEDS: MAGNESIUM OXIDE 400 MG TABLET PO SCH ×2 (09:19→17:02)
[2018-08-16] MEDS: ROFLUMILAST 500 MCG TABLET PO SCH (09:19)
[2018-08-16] MEDS: PANTOPRAZOLE SODIUM 40 MG TABLET.DR PO SCH (09:20)
[2018-08-16] MEDS ORDERED: OXYCODONE HCL IR 5 MG TABLET PO PRN (12:59)
[2018-08-16] MEDS: LIDOCAINE 5% (700 MG) TRANSDERMAL ADH..PATCH TP SCH (14:38)
--- NOTE | 2018-08-16 16:55 | PDOC PROGRESS REPORT ---
Subjective Progress Note for:: 08/16/18 Subjective:: TAI FAN is a 63 year old female with a past medical history of persistent tobacco dependence, oxygen dependent COPD, obstructive sleep apnea with BiPAP noncompliance, congestive heart failure, CKD 3, insulin-dependent diabetes chronic pain and restless leg syndrome who was admitted early this morning by the stock buyer for acute on chronic kidney failure and altered mental status. Patient was seen on morning rounds. She was found sitting up in bed, comforta kinsey on supplemental oxygen at 6 L/min by nasal cannula (reports that she uses 5 L/min at home). She states that she is feeling well today; asking to be discharged home. She denies difficulty breathing, chest pain, or cough. Advised that she was brought in because she was found minimally responsive after a fall; patient dismisses stating that she falls frequently and was just tired. Discussed need to have patient remain in-house for continued IV fluids and treatment of DOUG. She denies fever, chills, chest pain, palpitations, dyspnea, orthopnea, cough, abdominal pain, nausea vomiting and diarrhea. She has no other questions or concerns today. No concerns per nursing. Patient requested that I call her son, WALLY Knapp, at [phone]. Attempted please call this afternoon, no answer. Reason For Visit: AMS GARY,HTN,ARF TOBACCO Physical Exam Vital Signs: Temp Pulse Resp BP Pulse Ox 98.0 F 71 14 137/54 H 98 08/16/18 12:11 08/16/18 14:00 08/16/18 12:11 08/16/18 12:11 08/16/18 12:11 Intake & Output 08/15/18 08/16/18 08/17/18 06:59 06:59 06:59 Intake Total 0 4623 1000 Balance 0 4623 1000 Weight 81 kg 83 kg General appearance: PRESENT: no acute distress, obese, well-developed, well- nourished Head exam: PRESENT: atraumatic, normocephalic Eye exam: PRESENT: conjunctiva pink, EOMI, PERRLA. ABSENT: scleral icterus Ear exam: PRESENT: normal external ear exam Mouth exam: PRESENT: moist, tongue midline Teeth exam: PRESENT: poor dentation Neck exam: ABSENT: carotid bruit, JVD, lymphadenopathy, thyromegaly Respiratory exam: PRESENT: clear to auscultation antonio, prolonged expiratory phas, symmetrical, unlabored, other - supplemental oxygen via NC. ABSENT: rales, rhonchi, wheezes Cardiovascular exam: PRESENT: RRR. ABSENT: diastolic murmur, rubs, systolic murmur Pulses: PRESENT: normal dorsalis pedis pul Vascular exam: PRESENT: normal capillary refill GI/Abdominal exam: PRESENT: normal bowel sounds, soft. ABSENT: distended, guarding, mass, organolmegaly, rebound, tenderness Rectal exam: PRESENT: deferred Extremities exam: PRESENT: full ROM. ABSENT: calf tenderness, clubbing, pedal edema Neurological exam: PRESENT: alert, awake, oriented to person, oriented to place, oriented to time, oriented to situation, CN II-XII grossly intact. ABSENT: motor sensory deficit Psychiatric exam: PRESENT: appropriate affect, normal mood. ABSENT: homicidal ideation, suicidal ideation Skin exam: PRESENT: dry, intact, warm. ABSENT: cyanosis, rash Results Laboratory Results: 08/15/18 00:40 08/16/18 05:30 08/16/18 05:30 Sodium 138.4 Potassium 4.6 Chloride 105 Carbon Dioxide 26 Anion Gap 7 BUN 58 H Creatinine 1.81 H Est GFR ( Amer) 34 L Est GFR (Non-Af Amer) 28 L Glucose 144 H Calcium 8.6 08/14/18 23:55 Troponin I 0.030 NT-Pro-B Natriuret Pep 2390 H Impressions: Chest X-Ray 08/14/18 23:50 IMPRESSION: No acute finding. Other findings as described. copyright 2011 [employer]- All Rights Reserved Head CT 08/14/18 23:50 IMPRESSION: No acute finding. TECHNICAL DOCUMENTATION: Quality ID # [id number]: Final reports with documentation of one or more dose reduction techniques (e.g., Automated exposure control, adjustment of the mA and/or kV according to patient size, use of iterative reconstruction technique) copyright 2011 [employer]- All Rights Reserved Knee X-Ray 08/15/18 01:43 IMPRESSION: No acute fracture or dislocation of either knee. Severe osteoarthritis involving both knees, worse along the medial compartments. copyright 2011 [employer]- All Rights Reserved Assessment and Plan - Diagnosis (1) Acute on chronic kidney failure Qualifiers: Acute renal failure type: unspecified Chronic kidney disease stage: un specified stage Qualified Code(s): N17.9 - Acute kidney failure, unspecified; N18.9 - Chronic kidney disease, unspecified Is this a current diagnosis for this admission?: Yes Plan: Improved; Cr 2.83-> 1.81. Baseline 1.40 Prerenal secondary to dehydration and hypotension. Patient is admitted to the medical floor on continuous telemetry. Providing IVF. Holding home dose diuretics. Will avoid nephrotoxic medications as able. Daily chemistry. (2) Altered mental status Qualifiers: Altered mental status type: unspecified Qualified Code(s): R41.82 - Altered mental status, unspecified Is this a current diagnosis for this admission?: Yes Plan: Resolved. Multifactorial suspected Percocet misuse complicated by chronic pain and chronic respiratory failure with reduced respiratory rate and hypercapnia, hypotension and acute renal failure. ABG is reassuring; at baseline pCO2. Supportive care. Limit narcotics and other sedating medications Fall and aspiration precautions. (3) COPD exacerbation Is this a current diagnosis for this admission?: Yes Plan: Improved; now tolerating periods off BiPAP. Currently on 6lpm via NC, uses 5 lpm at home. She is provided supplemental oxygen as needed to maintain oxygen saturations >89% BiPAP as needed. Continue home dose Daliresp, Breo, and Spiriva. As needed nebulizer treatments. Incentive spirometer and flutter valve. Avoid medications reducing respiratory drive No indications for steroid or antibiotic therapy at this time. Pulmonology was consulted; appreciate Dr. Stuart's recommendations. 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 Home dose Lantus as ordered. Accu-Cheks before meals and at bedtime with Humalog for sliding scale coverage. Hypoglycemia protocol in place. - Time Time Spent with patient: 25-34 minutes Medications reviewed and adjusted accordingly: Yes Anticipated discharge: Home with Homehealth - Chane Carlos RN, PT/OT, and SW Within: within 24 hours - Pending resolution of DOUG.
--- NOTE | 2018-08-16 16:59 | ADVANCED CARE ---
- Diagnosis (1) Acute on chronic kidney failure Diagnosis Current: Yes (2) Altered mental status Diagnosis Current: Yes (3) COPD exacerbation Diagnosis Current: Yes (4) GARY (obstructive sleep apnea) Diagnosis Current: Yes (5) Diabetes Diagnosis Current: Yes Attendance: Patient, Martina Clay Resuscitation Status: Full Code Discussion: Discussed with patient her chronic respiratory failure, COPD, GARY, and opiate dependent chronic pain. I discussed with her my concern that her pain medications are resulting in worsened respiratory status leading to confusion and falls. She is advised that she may need to start making concessions with regard to treatment of her pain and finding alternate treatments for her pain to ensure that she does not experience narcotic related respiratory failure. Patient nods in agreement and states that she understands that her pain medications could be causing her breathing trouble to worsen. I introduced the topic of palliative care; the patient seemed quite interested especially when I mentioned that some palliative care services provide home visits. She asks that this be set up in addition to her [place] home health nursing. Otherwise, she confirms FULL CODE STATUS. Care Planning Goals: FULL CODE Palliative Care referral w/ outpatient follow up. Time Spent: 20 min
[2018-08-16] MEDS ORDERED: OXYCODONE HCL IR 5 MG TABLET PO ONE (17:00)
[2018-08-16] MEDS: FAMOTIDINE 20 MG TABLET PO SCH (22:05)
[2018-08-17] MEDS: OXYCODONE HCL IR 5 MG TABLET PO PRN ×3 (00:49→14:24)
[2018-08-17] MEDS: HEPARIN SOD (PORCINE) 5,000 UNIT/ML 1 ML SYRINGE SUBCUT SCH ×2 (05:34→13:02)
[2018-08-17] MEDS: GABAPENTIN 300 MG CAPSULE PO SCH ×2 (05:38→12:23)
[2018-08-17 06:53] LABS: HEMATOCRIT 37.2 % (36.0-47.0); HEMOGLOBIN 11.3 g/dL (12.0-15.5); MEAN CORPUSCULAR HGB CONC 30.4 g/dL (32.0-36.0); MEAN CORPUSCULAR VOLUME 82 fl (80-97); PLATELET COUNT 153 10^3/uL (150-450); RED BLOOD COUNT 4.52 10^6/uL (3.72-5.28); RED CELL DISTRIBUTION WIDTH 21.1 % (11.5-14.0); WHITE BLOOD COUNT 5.7 10^3/uL (4.0-10.5)
[2018-08-17] MEDS: NORMAL SALINE 1000 ML 1,000 ML IV PRN (06:53)
[2018-08-17 07:06] LABS: ANION GAP 6 (5-19); BLOOD UREA NITROGEN 43 mg/dL (7-20); CALCIUM 8.6 mg/dL (8.4-10.2); CARBON DIOXIDE 28 mmol/L (22-30); CHLORIDE 109 mmol/L (98-107); POTASSIUM 3.8 mmol/L (3.6-5.0); SODIUM 143.1 mmol/L (137-145)
[2018-08-17 07:20] LABS: GLUCOSE 36 mg/dL (75-110)
[2018-08-17] MEDS: INSULIN LISPRO 100 UNIT/ML 3 ML VIAL SUBCUT SCH ×2 (08:18→12:24)
[2018-08-17] MEDS: POTASSIUM CHLORIDE 10 MEQ CAPSULE.ER PO SCH (09:48)
[2018-08-17] MEDS: MAGNESIUM OXIDE 400 MG TABLET PO SCH (09:49)
[2018-08-17] MEDS: ROFLUMILAST 500 MCG TABLET PO SCH (09:49)
[2018-08-17] MEDS: PANTOPRAZOLE SODIUM 40 MG TABLET.DR PO SCH (09:49)
[2018-08-17] MEDS: LIDOCAINE 5% (700 MG) TRANSDERMAL ADH..PATCH TP SCH (09:49)
[2018-08-17] MEDS: DOCUSATE SODIUM 100 MG CAPSULE PO SCH ×2 (09:49→10:01)
[2018-08-17] MEDS: FLUTICASONE/VILANTEROL 200-25 MCG/DOSE IH SCH (09:49)
[2018-08-17] MEDS: TIOTROPIUM BROMIDE DPI 5 CAP/KIT (18 MCG/CAP) IH SCH (09:50)
[2018-08-17] MEDS: FLUTICASONE NASAL SPRAY 50 MCG/SPRY 120 SPRAY/16 GM NASL SCH ×2 (09:50→10:01)
[2018-08-17] MEDS: ATORVASTATIN CALCIUM 80 MG TABLET PO SCH (09:51)
[2018-08-17] MEDS: BUPROPION HCL 75 MG TABLET PO SCH (09:52)
[2018-08-17] MEDS: INSULIN GLARGINE,HUM.REC.ANLOG 1,000 UNIT/10 ML VIAL SUBCUT SCH (09:53)
[2018-08-17 15:37] VITALS: BP 128/54
[2018-08-17] MEDS ORDERED: INSULIN GLARGINE,HUM.REC.ANLOG 1,000 UNIT/10 ML VIAL SUBCUT SCH (22:00)
[2018-08-18] MEDS ORDERED: INSULIN GLARGINE,HUM.REC.ANLOG 1,000 UNIT/10 ML VIAL SUBCUT SCH (08:00)
== END 2018-08-17 16:00 | disposition home health service (06) | DRG 683 ==
LOC: ER 23:37 → EH 08-15 03:45 → 4S 08-15 04:55 → OBSVTOIN 08-16 08:00
PROVIDERS: ADMIT Internal Medicine; ATTEND Internal Medicine
DX: N17.9 Acute kidney failure, unspecified (principal); J44.1 Chronic obstructive pulmonary disease with (acute) exacerbation; I13.0 Hypertensive heart and chronic kidney disease with heart failure and stage 1 through stage 4 chronic kidney disease, or unspecified chronic kidney disease; J96.12 Chronic respiratory failure with hypercapnia; G47.33 Obstructive sleep apnea (adult) (pediatric); F17.210 Nicotine dependence, cigarettes, uncomplicated; Z99.81 Dependence on supplemental oxygen; Z91.19 Patient's noncompliance with other medical treatment and regimen; I50.9 Heart failure, unspecified; N18.3 Chronic kidney disease, stage 3 (moderate); E11.22 Type 2 diabetes mellitus with diabetic chronic kidney disease; Z79.4 Long term (current) use of insulin; G25.81 Restless legs syndrome; G89.29 Other chronic pain; M10.9 Gout, unspecified; F32.9 Major depressive disorder, single episode, unspecified; Z88.2 Allergy status to sulfonamides
CPT/HCPCS: 36415; 36600; 70450; 71045; 80048; 80053; 80307; 81001; 82803; 82962; 83605; 83880; 84443; 84484; 85025; 85027; 87040; 93005; 93010; 94660; 94667; 94668; 94799; 96374; 96375; 99285; G0378; J1644; J1815; J1940; J2930; J3490; J7030

== ENCOUNTER 2018-09-02 17:14 | Inpatient (IN) | payer MEDICAID ==
[2018-09-02 18:13] LABS: ABSOLUTE EOSINOPHILS # (AUTO) 0.1 10^3/uL (0.0-0.6); ABSOLUTE LYMPHOCYTES (AUTO) 0.7 10^3/uL (0.5-4.7); ABSOLUTE MONOCYTES (AUTO) 0.3 10^3/uL (0.1-1.4); ABSOLUTE NEUT (AUTO) 2.3 10^3/uL (1.7-8.2); BASOPHILS % (AUTO) 0.1 % (0-2); HEMATOCRIT 37.1 % (36.0-47.0); HEMOGLOBIN 11.1 g/dL (12.0-15.5); LYMPHOCYTES % (AUTO) 20.4 % (13-45); MEAN CORPUSCULAR HEMOGLOBIN 24.3 pg (27.0-33.4); MEAN CORPUSCULAR VOLUME 81 fl (80-97); MONOCYTES % (AUTO) 8.1 % (3-13); PLATELET COUNT 124 10^3/uL (150-450); RED BLOOD COUNT 4.58 10^6/uL (3.72-5.28); RED CELL DISTRIBUTION WIDTH 22.3 % (11.5-14.0); SEGMENTED NEUTROPHILS % (AUTO) 69.4 % (42-78); TOTAL CELLS COUNTED % (AUTO) 100 %; WHITE BLOOD COUNT 3.4 10^3/uL (4.0-10.5)
--- NOTE | 2018-09-02 18:17 | RADIOLOGY REPORT (SQ) ---
EXAM DESCRIPTION: CHEST SINGLE VIEW COMPLETED DATE/TIME: 09/02/2018 5:41 pm REASON FOR STUDY: sob COMPARISON: 08/15/2018 TECHNIQUE: Single frontal radiographic view of the chest acquired. NUMBER OF VIEWS: One view. LIMITATIONS: None. FINDINGS: LUNGS AND PLEURA: No pneumothorax. Similar bibasilar scarring -subsegmental atelectasis. Similar interstitial changes and emphysema. No acute consolidation or pleural effusion. MEDIASTINUM AND HILAR STRUCTURES: Stable. HEART AND VASCULAR STRUCTURES: Stable. BONES: No acute findings. HARDWARE: None in the chest. OTHER: No other significant finding. IMPRESSION: NO ACUTE FINDINGS. TECHNICAL DOCUMENTATION: JOB ID: [id number] [place]-72 2010 [employer]- All Rights Reserved Reading location - IP/workstation name: [email or web address]
[2018-09-02 18:31] LABS: ALANINE AMINOTRANSFERASE 20 U/L (9-52); ALKALINE PHOSPHATASE 112 U/L (38-126); ANION GAP 5 (5-19); ASPARTATE AMINO TRANSFERASE 10 U/L (14-36); BILIRUBIN,DIRECT 0.3 mg/dL (0.0-0.4); BILIRUBIN,TOTAL 0.7 mg/dL (0.2-1.3); BLOOD UREA NITROGEN 29 mg/dL (7-20); CALCIUM 8.6 mg/dL (8.4-10.2); CARBON DIOXIDE 32 mmol/L (22-30); CHLORIDE 104 mmol/L (98-107); GLUCOSE 96 mg/dL (75-110); POTASSIUM 4.3 mmol/L (3.6-5.0); SODIUM 141.3 mmol/L (137-145); TOTAL PROTEIN 5.1 g/dL (6.3-8.2)
[2018-09-02] MEDS ORDERED: OXYCODONE-ACETAMINOPHEN 5-325 MG TABLET PO ONE (18:39)
[2018-09-02] MEDS ORDERED: LEVOFLOXACIN 750 MG/D5W RTU 750 MG/150 ML RTUPB IV ONE (19:22)
[2018-09-02] MEDS ORDERED: METHYLPREDNISOLONE INJ 125 MG/2 ML SDV IV ONE (19:23)
[2018-09-02] MEDS ORDERED: FUROSEMIDE INJ/PF 20 MG/2 ML SDV IV ONE (19:23)
[2018-09-02 19:28] LABS: ARTERIAL BLOOD BASE EXCESS 3.1 mmol/L; ARTERIAL BLOOD H2CO3 1.35 mmol/L (1.05-1.35); ARTERIAL BLOOD HCO3 28.1 mmol/L (20-24); ARTERIAL BLOOD O2 SATURATION 93.6 % (94-98); ARTERIAL BLOOD PCO2 44.7 mmHg (35-45); ARTERIAL BLOOD PH 7.42 (7.35-7.45); ARTERIAL BLOOD PO2 67.3 mmHg (80-100); ARTERIAL BLOOD TOTAL CO2 29.5 mmol/L (21-25)
[2018-09-02] MEDS ORDERED: IPRATROPIUM/ALBUTEROL 0.5-2.5 MG/3 ML AMPUL NEB ONE (19:28)
[2018-09-02 19:29] LABS: ARTERIAL BLOOD FIO2 4L
--- NOTE | 2018-09-02 19:31 | ER Document Report ---
ED Respiratory Problem - General Chief Complaint: Breathing Difficulty Stated Complaint: SHORTNESS OF BREATH Time Seen by Provider: 09/02/18 18:03 Mode of Arrival: Stretcher Information source: Patient TRAVEL OUTSIDE OF THE [place] IN LAST 30 DAYS: No - HPI Patient complains to provider of: CHF, COPD, Cough, Short of breath Onset: Other - Ongoing for the past 2 days. Duration: Better Quality of pain: Achy, Dull Severity: Moderate Pain Level: 3 Context: Hx CHF, Hx COPD Short of Breath: Moderate Chest pain/discomfort: Constant Cough: Productive Sputum amount: Moderate Sputum color: Green Sputum consistency: Thin At home treatment: Bronchodilators, Oxygen EMS treatments: Oxygen Associated symptoms: Cough, Short of breath Similar symptoms previously: Yes Recently seen / treated by doctor: Yes - Related Data Allergies/Adverse Reactions: Sulfa (Sulfonamide Antibiotics) Allergy (Verified 02/18/16 03:50) Past Medical History - General Information source: Patient - Social History Smoking Status: Current Every Day Smoker Family History: COPD, Hypertension Patient has suicidal ideation: No Patient has homicidal ideation: No - Past Medical History Cardiac Medical History: Reports: Hx Congestive Heart Failure, Hx Hypertension Pulmonary Medical History: Reports: Hx COPD - O2 dependent COPD, Hx Sleep Apnea Endocrine Medical History: Reports: Hx Diabetes Mellitus Type 2 Renal/ Medical History: Denies: Hx Peritoneal Dialysis Musculoskeletal Medical History: Reports Hx Gout Psychiatric Medical History: Reports: Hx Depression Past Surgical History: Reports: Hx Section, Hx Hysterectomy, Hx Orthopedic Surgery - Bilateral carpal tunnel surgery, back surgery., Hx Vascular Surgery - Bilateral carotid endarterectomies - Immunizations Hx Diphtheria, Pertussis, Tetanus Vaccination: Yes Hx Pneumococcal Vaccination: 02/23/09 Review of Systems - Review of Systems Constitutional: No symptoms reported EENT: No symptoms reported Cardiovascular: No symptoms reported Respiratory: Cough, Short of breath Gastrointestinal: No symptoms reported Genitourinary: No symptoms reported Female Genitourinary: No symptoms reported Musculoskeletal: Leg swelling Skin: No symptoms reported Hematologic/Lymphatic: No symptoms reported Neurological/Psychological: No symptoms reported -: Yes All other systems reviewed and negative Physical Exam - Vital signs Vitals: Resp Pulse Ox 15 94 09/02/18 17:31 09/02/18 17:31 Interpretation: Normal - General General appearance: Appears well, Alert In distress: Mild - HEENT Head: Normocephalic, Atraumatic Eyes: Normal Pupils: PERRL - Respiratory Respiratory status: No respiratory distress Chest status: Nontender Breath sounds: Wheezing Chest palpation: Normal - Cardiovascular Rhythm: Regular Heart sounds: Normal auscultation Murmur: No - Abdominal Inspection: Normal Distension: No distension Bowel sounds: Normal Tenderness: Nontender Organomegaly: No organomegaly - Back Back: Normal, Nontender - Extremities General upper extremity: Normal inspection, Nontender, Normal color, Normal ROM, Normal temperature General lower extremity: Tender, Edema, Normal ROM, Normal temperature. No: Radhika's sign Shoulder: Normal Arm: Normal Elbow: Normal Forearm: Normal Wrist: Normal Hand: Normal Ankle: Normal Foot: Normal - Neurological Neuro grossly intact: Yes Cognition: Normal Orientation: AAOx4 Rashi Coma Scale Eye Opening: Spontaneous Rashi Coma Scale Verbal: Oriented Rashi Coma Scale Motor: Obeys Commands [place] Coma Scale Total: 15 Speech: Normal Motor strength normal: LUE, RUE, LLE, RLE Sensory: Normal - Psychological Associated symptoms: Normal affect, Normal mood - Skin Skin Temperature: Warm Skin Moisture: Dry Skin Color: Normal Course - Re-evaluation Re-evalutation: 09/02/18 19:30 On reevaluation patient stated he is feeling a little bit better. I informed her that she will be admitted to the hospital for further evaluation and management. - Vital Signs Vital signs: Temp Pulse Resp BP Pulse Ox 98.6 F 90 17 130/60 H 88 L 09/03/18 00:55 09/03/18 00:55 09/03/18 00:55 09/03/18 00:55 09/03/18 00:55 - Laboratory Result Diagrams: 09/02/18 17:19 09/02/18 18:01 Laboratory results interpreted by me: 09/02/18 09/02/18 09/02/18 17:19 18:01 18:01 WBC 3.4 L Hgb 11.1 L MCH 24.3 L MCHC 30.0 L RDW 22.3 H Plt Count 124 L ABG pO2 ABG HCO3 ABG Total CO2 ABG O2 Saturation Carbon Dioxide 32 H BUN 29 H Creatinine 1.63 H Est GFR ( Amer) 39 L Est GFR (Non-Af Amer) 32 L AST 10 L NT-Pro-B Natriuret Pep 1950 H Total Protein 5.1 L Albumin 3.0 L 09/02/18 18:12 WBC Hgb MCH MCHC RDW Plt Count ABG pO2 67.3 L ABG HCO3 28.1 H ABG Total CO2 29.5 H ABG O2 Saturation 93.6 L Carbon Dioxide BUN Creatinine Est GFR ( Amer) Est GFR (Non-Af Amer) AST NT-Pro-B Natriuret Pep Total Protein Albumin - Diagnostic Test Radiology reviewed: Reports reviewed Radiology results interpreted by me: 09/02/18 19:30 Chest x-ray is negative. - EKG Interpretation by Me EKG shows normal: Sinus rhythm Rate: Normal When compared to previous EKG there are: No significant change Additional EKG results interpreted by me: 09/02/18 20:23 No STEMI. - Transfer of Care Notes: 09/02/18 19:30 I consulted the hospitalist staff weapons officer Dr. Juanito Ulloa. He will admit patient for further evaluation and management. Discharge - Discharge Clinical Impression: COPD exacerbation, Pedal edema COPD (chronic obstructive pulmonary disease) Qualifiers: COPD type: unspecified COPD Qualified Code(s): J44.9 - Chronic obstructive pulmonary disease, unspecified CHF (congestive heart failure) Qualifiers: Heart failure type: unspecified Heart failure chronicity: unspecified Qualified Code(s): I50.9 - Heart failure, unspecified CKD (chronic kidney disease) Qualifiers: Chronic kidney disease stage: stage 3 (moderate) Qualified Code(s): N18.3 - Chronic kidney disease, stage 3 (moderate) Condition: Stable Disposition: ADMITTED INPATIENT Admitting Provider: Laila (Hospitalist) Unit Admitted: Medical Floor
--- NOTE | 2018-09-02 20:05 | EKG REPORT ---
SEVERITY:- ABNORMAL ECG - SINUS RHYTHM PROBABLE LEFT ATRIAL ABNORMALITY LOW VOLTAGE IN FRONTAL LEADS CONSIDER ANTEROSEPTAL INFARCT : Confirmed by: Bhavana Patel MD 02-Sep-2018 20:04:13
[2018-09-02] MEDS ORDERED: LEVALBUTEROL HCL NEB 0.63 MG/3 ML AMPUL NEB PRN (21:08)
[2018-09-02] MEDS ORDERED: TEMAZEPAM 15 MG CAPSULE PO PRN (21:08)
[2018-09-02] MEDS ORDERED: ONDANSETRON HCL INJ/PF 4 MG/2 ML SDV IV PRN (21:08)
[2018-09-02] MEDS ORDERED: MAG HYDROX/AL HYDROX/SIMETH SUSP 30 ML UDCUP PO PRN (21:08)
[2018-09-02] MEDS ORDERED: MAGNESIUM HYDROXIDE SUSP 30 ML UDCUP PO PRN (21:08)
[2018-09-02] MEDS ORDERED: MORPHINE SULFATE 10 MG/ML INJ IV PRN (21:13)
[2018-09-02] MEDS ORDERED: ACETAMINOPHEN 325 MG TABLET PO PRN (21:13)
[2018-09-02] MEDS ORDERED: NICOTINE 21 MG/24 HR PATCH.TD24 TD PRN (21:13)
[2018-09-02] MEDS ORDERED: GLUCAGON,HUMAN RECOMB 1 MG INJ IM PRN (21:16)
[2018-09-02] MEDS ORDERED: DEXTROSE 40% GEL 15 GM TUBE PO PRN ×2 (21:16)
[2018-09-02] MEDS ORDERED: DEXTROSE 50%-WATER 25 GM/50 ML DISP.SYRIN IV PRN ×2 (21:16)
[2018-09-02] MEDS ORDERED: (PENDING PHARMACY ID) (Sennosides [Senna] 2 TAB) PO SCH (22:00)
[2018-09-02] MEDS: METHYLPREDNISOLONE INJ 40 MG/1 ML SDV IV SCH (22:01)
[2018-09-02] MEDS: BUPROPION HCL 75 MG TABLET PO SCH (22:03)
[2018-09-02] MEDS: PREGABALIN 75 MG CAPSULE PO SCH (22:03)
[2018-09-02] MEDS: ATORVASTATIN CALCIUM 80 MG TABLET PO SCH (22:04)
[2018-09-02] MEDS: HEPARIN SOD (PORCINE) 5,000 UNIT/ML 1 ML SYRINGE SUBCUT SCH (22:04)
[2018-09-02 22:53] LABS: CREATINE KINASE MB 1.1 ng/mL (<4.55); TROPONIN I 0.018 ng/mL
[2018-09-03] MEDS: LEVALBUTEROL HCL NEB 1.25 MG/3 ML AMPUL NEB SCH ×3 (00:29→16:18)
[2018-09-03] MEDS: IPRATROPIUM BROMIDE 0.02% NEB 0.5 MG/2.5 ML AMPUL NEB SCH ×3 (00:29→16:18)
[2018-09-03] MEDS: BUMETANIDE INJ/PF 1 MG/4 ML SDV IV SCH ×4 (01:32→18:52)
[2018-09-03 02:15] LABS: APPEARANCE,URINE CLOUDY; BILIRUBIN,URINE NEGATIVE (NEGATIVE); COLOR,URINE YELLOW; GLUCOSE, URINE NEGATIVE (NEGATIVE); KETONES,URINE NEGATIVE (NEGATIVE); LEUKOCYTE ESTERASE,URINE MODERATE (NEGATIVE); NITRITE,URINE NEGATIVE (NEGATIVE); PROTEIN,URINE NEGATIVE (NEGATIVE); URINE SPECIFIC GRAVITY 1.012; UROBILINOGEN,URINE NEGATIVE mg/dL (<2.0)
[2018-09-03] MEDS: OXYCODONE HCL IR 5 MG TABLET PO PRN ×4 (03:28→19:37)
[2018-09-03] MEDS ORDERED: POTASSIUM CHLORIDE 20 MEQ/50 ML RTU IV SCH (04:00)
[2018-09-03 04:55] LABS: HEMATOCRIT 36.6 % (36.0-47.0); MEAN CORPUSCULAR HEMOGLOBIN 24.3 pg (27.0-33.4); MEAN CORPUSCULAR VOLUME 81 fl (80-97); PLATELET COUNT 113 10^3/uL (150-450); RED BLOOD COUNT 4.52 10^6/uL (3.72-5.28); RED CELL DISTRIBUTION WIDTH 22.6 % (11.5-14.0)
[2018-09-03 05:09] LABS: WHITE BLOOD COUNT 1.7 10^3/uL (4.0-10.5)
[2018-09-03 05:10] LABS: ANION GAP 6 (5-19); BLOOD UREA NITROGEN 31 mg/dL (7-20); CALCIUM 8.7 mg/dL (8.4-10.2); CARBON DIOXIDE 26 mmol/L (22-30); CHLORIDE 107 mmol/L (98-107); CHOLESTEROL 75.35 mg/dL (0-200); GLUCOSE 233 mg/dL (75-110); POTASSIUM 4.7 mmol/L (3.6-5.0); SODIUM 138.8 mmol/L (137-145); TRIGLYCERIDES 84 mg/dL (<150)
[2018-09-03 05:20] LABS: CREATINE KINASE MB 1.05 ng/mL (<4.55)
[2018-09-03 05:21] LABS: DIRECT LDL 42 mg/dL (<100); TROPONIN I < 0.012 ng/mL
[2018-09-03] MEDS: PANTOPRAZOLE SODIUM 40 MG TABLET.DR PO SCH ×2 (05:23→18:52)
[2018-09-03] MEDS: HEPARIN SOD (PORCINE) 5,000 UNIT/ML 1 ML SYRINGE SUBCUT SCH ×3 (05:23→23:23)
[2018-09-03 05:26] LABS: FREE T3 3.24 pg/mL (2.77-5.27); FREE T4 (FREE THYROXINE) 1.53 ng/dL (0.78-2.19)
[2018-09-03 05:40] LABS: THYROID STIMULATING HORMONE 0.81 uIU/mL (0.47-4.68)
--- NOTE | 2018-09-03 06:03 | PDOC H&P ---
History of Present Illness Admission Date/PCP: 09/02/18 19:40 ZITA SILVA MD Patient complains of: Dyspnea History of Present Illness: TAI CLAY is a 63 year old female who presented to the emergency room from her primary care provider's office via EMS with a 2-day history of dyspnea. She admits a worsening of her dyspnea over the last 2 days despite use of continuous oxygen at 4 L/min as well as bronchodilators at home. Her dyspnea has become severe and is increased on exertion. She sought relief at Dr. Garcia's office earlier today but was found to have an O2 sat of 85% and was sent to the emergency room via EMS from Dr. Silva's office. She admits that her dyspnea has been accompanied by a cough productive of greenish mucus and a continuous dull achy generalized chest pain. Additionally she admits increased swelling of her bilateral lower extremities and orthopnea. She denies other associated or accompanying signs and symptoms. She admits numerous prior similar episodes related to her heart failure and COPD. She continues to smoke cigarettes but denies identification of any aggravating or ameliorating factors for her dyspnea. In the emergency room she was found to have mild hypoxia and bilateral lower extremity edema. She was started on Levaquin by the ER physician and was subsequently admitted to the hospital for further evaluation and treatment. Past Medical History Cardiac Medical History: Reports: Congestive Heart Failure, Hypertension Denies: Coronary Artery Disease Pulmonary Medical History: Reports: Bronchitis, Chronic Obstructive Pulmonary Disease (COPD) - O2 dependent COPD, Pneumonia, Respiratory Failure, Sleep Apnea Denies: Asthma EENT Medical History: Denies: Cataracts, Ears - Hearing aids Neurological Medical History: Denies: Hemorrhagic CVA, Ischemic CVA, Multiple Sclerosis, Seizures Endocrine Medical History: Reports: Diabetes Mellitus Type 2 Denies: Diabetes Mellitus Type 1, Hyperthyroidism, Hypothyroidism Renal/ Medical History: Reports: Chronic Kidney Disease Denies: Nephrolithiasis Malignancy Medical History: Reports: None GI Medical History: Denies: Cirrhosis, Hepatitis Musculoskeltal Medical History: Reports: Gout, Other - Chronic pain syndrome Denies: Fibromyalgia Skin Medical History: Denies: Eczema, Psoriasis Psychiatric Medical History: Reports: Depression, Tobacco Dependency Denies: Alcohol Dependency, Substance Abuse Traumatic Medical History: Reports: None Hematology: Denies: Anemia, Bleeding Tendencies Infectious Medical History: Reports: None Past Surgical History Past Surgical History: Reports: Section, Hysterectomy, Orthopedic Surgery - Bilateral carpal tunnel surgery, back surgery., Vascular Surgery - Bilateral carotid endarterectomies Social History Information Source: Patient Lives with: Alone Smoking Status: Current Every Day Smoker Frequency of Alcohol Use: None Hx Recreational Drug Use: No Drugs: None Hx Prescription Drug Abuse: Yes - History of suspected Percocet misuse - Advance Directive Resuscitation Status: Full Code Surrogate healthcare decision maker:: Saadia Clay Family History Family History: COPD, Hypertension Parental Family History Reviewed: Yes Children Family History Reviewed: No Sibling(s) Family History Reviewed.: Yes Medication/Allergy Home Medications: Albuterol Sulfate [Proair HFA Inhalation Aerosol 8.5 gm MDI] 2 puff HE Q6HP PRN 09/02/18 Allopurinol [Zyloprim 300 mg Tablet] 300 mg PO DAILY 09/02/18 Atorvastatin Calcium [Lipitor 80 mg Tablet] 80 mg PO QHS 09/02/18 Bumetanide [Bumex 1 mg Tablet] 1 mg PO BID 09/02/18 Bupropion HCl [Wellbutrin Xl 150 mg 24hr Tablet] 150 mg PO DAILY 09/02/18 Fluticasone Propionate [Flonase Nasal [place] 50 Mcg/[place] 16 gm] 1 spray NASL DAILY 09/02/18 Fluticasone/Salmeterol [Advair 500-50 Diskus 14 Dose/Diskus] 1 puff IH Q12 09/02/18 Insulin Glargine,Hum.rec.anlog [Lantus Insulin 100 Unit/1 ml 10 ml] 35 units SQ DAILY 09/02/18 Insulin Lispro [Humalog Kwikpen U-100] See Protocol SQ MEALS 09/02/18 Magnesium Oxide [Mag-Ox 400 mg Tablet] 400 mg PO BID 09/02/18 Omeprazole 40 mg PO DAILY 09/02/18 Oxycodone HCl [Oxycodone HCl 10 MG Tablet] 10 mg PO Q6HP PRN 09/02/18 Potassium Chloride [Klor-Con 10 Meq Capsule ER] 10 meq PO DAILY 09/02/18 Pregabalin [Lyrica] 150 mg PO BID 09/02/18 Sennosides [Senna] 2 tab PO QHS 09/02/18 Allergies/Adverse Reactions: Sulfa (Sulfonamide Antibiotics) Allergy (Verified 02/18/16 03:50) Review of Systems Constitutional: ABSENT: chills, fever(s) Eyes: ABSENT: visual disturbances, other - Ocular pain Ears: ABSENT: hearing changes, other - Ear pain Nose, Mouth, and Throat: ABSENT: mouth pain, sore throat Cardiovascular: PRESENT: as per HPI, chest pain - Generalized dull achy pain, dyspnea on exertion, edema, orthropnea. ABSENT: palpitations Respiratory: PRESENT: as per HPI, cough, dyspnea, sputum. ABSENT: hemoptysis Gastrointestinal: ABSENT: abdominal pain, constipation, diarrhea, nausea, vomit ing Genitourinary: ABSENT: dysuria, hematuria Musculoskeletal: ABSENT: back pain, joint swelling, muscle weakness Integumentary: PRESENT: lesions - Bullous lesions due to swelling of bilateral lower extremities with clear fluid drainage. ABSENT: pruritus, rash Neurological: ABSENT: confusion, convulsions, focal weakness, memory loss, syncope Psychiatric: ABSENT: anxiety, depression Endocrine: ABSENT: cold intolerance, heat intolerance Hematologic/Lymphatic: ABSENT: easy bleeding, easy bruising Physical Exam Vital Signs: Temp Pulse Resp BP Pulse Ox 21 H 106/58 L 86 L 09/02/18 20:17 09/02/18 20:17 09/02/18 20:17 Intake & Output 08/31/18 09/01/18 09/02/18 23:59 23:59 23:59 Weight 71.214 kg General appearance: PRESENT: cooperative, mild distress - Secondary to dyspnea Head exam: PRESENT: atraumatic, normocephalic Eye exam: PRESENT: conjunctiva pink. ABSENT: conjunctival injection, scleral icterus Ear exam: PRESENT: normal external ear exam. ABSENT: bleeding, drainage Mouth exam: PRESENT: dry mucosa, neck supple Neck exam: PRESENT: JVD. ABSENT: thyromegaly, tracheal deviation Respiratory exam: PRESENT: accessory muscle use - Mild accessory muscle use, decreased breath sounds - Moderately decreased breath sounds throughout all wilder consistent with moderate to severe COPD, prolonged expiratory phas - Moderately prolonged expiratory phase throughout all wilder, rales - Bibasilar rales, retraction - Mild subclavicular retractions bilaterally, symmetrical, wheezes - End expiratory wheezes present in all wilder Cardiovascular exam: PRESENT: gallop - S4 gallop noted, RRR. ABSENT: clicks, rubs Pulses: PRESENT: normal radial pulses, normal dorsalis pedis pul Vascular exam: PRESENT: normal capillary refill, other - Changes of chronic venous stasis noted in the bilateral lower extremities. ABSENT: pallor GI/Abdominal exam: PRESENT: normal bowel sounds, soft Rectal exam: PRESENT: deferred Extremities exam: PRESENT: pedal edema, other - 3+ pitting pretibial edema antonio aterally. ABSENT: joint swelling Musculoskeletal exam: ABSENT: deformity, dislocation Neurological exam: PRESENT: alert, oriented to person, oriented to place, oriented to time, oriented to situation, CN II-XII grossly intact. ABSENT: motor sensory deficit Psychiatric exam: PRESENT: appropriate affect, normal mood Skin exam: PRESENT: dry, intact, warm, other - Chronic venous stasis changes of bilateral lower extremities with acute skin bullae secondary to superimposed congestive heart failure changes.. ABSENT: jaundice, rash, urticaria Results Laboratory Results: 09/02/18 17:19 09/02/18 18:01 09/02/18 09/02/18 09/02/18 17:19 18:01 18:12 WBC 3.4 L RBC 4.58 Hgb 11.1 L Hct 37.1 MCV 81 MCH 24.3 L MCHC 30.0 L RDW 22.3 H Plt Count 124 L Seg Neutrophils % 69.4 Lymphocytes % 20.4 Monocytes % 8.1 Eosinophils % 2.0 Basophils % 0.1 Absolute Neutrophils 2.3 Absolute Lymphocytes 0.7 Absolute Monocytes 0.3 Absolute Eosinophils 0.1 Absolute Basophils 0.0 Carbonic Acid 1.35 HCO3/H2CO3 Ratio 20:1 ABG pH 7.42 ABG pCO2 44.7 ABG pO2 67.3 L ABG HCO3 28.1 H ABG O2 Saturation 93.6 L ABG Base Excess 3.1 FiO2 4L Sodium 141.3 Potassium 4.3 Chloride 104 Carbon Dioxide 32 H Anion Gap 5 BUN 29 H Creatinine 1.63 H Est GFR ( Amer) 39 L Est GFR (Non-Af Amer) 32 L Glucose 96 Calcium 8.6 Total Bilirubin 0.7 AST 10 L ALT 20 Alkaline Phosphatase 112 Total Protein 5.1 L Albumin 3.0 L 09/02/18 18:01 NT-Pro-B Natriuret Pep 1950 H Impressions: Chest X-Ray 09/02/18 17:19 IMPRESSION: NO ACUTE FINDINGS. Assessment and Plan - Diagnosis (1) Acute and chronic respiratory failure with hypoxia Is this a current diagnosis for this admission?: Yes Plan: Patient be treated with supplemental oxygen utilizing nasal cannula and noninvasive airway pressure devices such as BiPAP or CPAP in order to maintain adequate oxygen saturation. (2) Acute exacerbation of CHF (congestive heart failure) Qualifiers: Heart failure type: unspecified Qualified Code(s): I50.9 - Heart failure, unspecified Is this a current diagnosis for this admission?: Yes Plan: Patient will be treated with additional diuretics utilizing Bumex 1 mg IV every 6 hours initially with adjustments made as required. Patient also receive morphine sulfate 2 mg IV every 2 hours on a as needed basis for her dyspnea. Daily metabolic profiles and daily magnesium levels will be used in monitoring the patient's course and therapy. (3) COPD exacerbation Is this a current diagnosis for this admission?: Yes Plan: Patient's COPD exacerbation be treated with an aggressive pulmonary toilet utilizing Xopenex, Pulmicort and Atrovent given via nebulizer. Additionally she will receive supplemental oxygen and intravenous steroids. She will also be treated with Levaquin 500 mg p.o. daily. A daily CBC will be obtained to guide therapy. (4) GARY (obstructive sleep apnea) Is this a current diagnosis for this admission?: Yes Plan: The patient's obstructive sleep apnea be treated with BiPAP use on an as needed basis and at night. (5) Diabetes mellitus type 2 in nonobese Is this a current diagnosis for this admission?: Yes Plan: Patient will be continued on her usual diabetic medications and a diabetic diet. Before meals and at bedtime Accu-Cheks will be performed and supplemental insulin be given on a sliding scale to control hyperglycemia. Hypoglycemic pro tocol will be in place. Hemoglobin A1c will be obtained to evaluate efficacy of current therapy. (6) CKD (chronic kidney disease) Qualifiers: Chronic kidney disease stage: stage 3 (moderate) Qualified Code(s): N18.3 - Chronic kidney disease, stage 3 (moderate) Is this a current diagnosis for this admission?: Yes Plan: Patient's renal disease will be monitored with daily metabolic profiles. (7) Tobacco use disorder, severe, dependence Is this a current diagnosis for this admission?: Yes Plan: Smoking cessation is advised and counseled briefly. A nicotine replacement patch will be available for the patient's use if required. - Time Time Spent with patient: 25-34 minutes Smoking Cessation Education: 3 to 10 minutes Medications reviewed and adjusted accordingly: Yes Anticipated discharge: Home - Inpatient Certification Based on my medical assessment, after consideration of the patient's comorbidities, presenting symptoms, or acuity I expect that the services needed warrant INPATIENT care.: Yes I certify that my determination is in accordance with my understanding of Medicare's requirements for reasonable and necessary INPATIENT services [42 CFR 412.3e].: Yes Medical Necessity: Significant Comorbidiites Make Outpatient Treatment Too Risky, Need Close Monitoring Due to Risk of Patient Decompensation, Need for Nebulizer Therapy and Monitoring of Response, Risk of Complication if Not Cared For in Hospital
--- NOTE | 2018-09-03 06:06 | ADVANCED CARE ---
- Diagnosis (1) Acute and chronic respiratory failure with hypoxia Diagnosis Current: Yes (2) Acute exacerbation of CHF (congestive heart failure) Diagnosis Current: Yes (3) COPD exacerbation Diagnosis Current: Yes (4) GARY (obstructive sleep apnea) Diagnosis Current: Yes (5) Diabetes mellitus type 2 in nonobese Diagnosis Current: Yes (6) CKD (chronic kidney disease) Diagnosis Current: Yes (7) Tobacco use disorder, severe, dependence Diagnosis Current: Yes Attendance: The patient and myself. Resuscitation Status: Full Code Discussion: After a very brief discussion the patient is indicated that she wishes to remain full code resuscitation status for any cardiac or respiratory arrest that may occur during her hospitalization. Additionally she has named Saadia Clay to be her designated surrogate medical decision maker. Care Planning Goals: 1. Patient be full CODE STATUS for this hospitalization. 2. Saadia Clay is her designated surrogate medical decision maker. Document(s) Completed: Following information will be entered into the permanent medical record the current medical record in current orders via EMR entry: 1. Patient be full CODE STATUS for this hospitalization. 2. Saadia Clay is her designated surrogate medical decision maker. Time Spent: 7 minutes
[2018-09-03 06:36] LABS: ARTERIAL BLOOD BASE EXCESS 3.5 mmol/L; ARTERIAL BLOOD H2CO3 1.42 mmol/L (1.05-1.35); ARTERIAL BLOOD HCO3 28.9 mmol/L (20-24); ARTERIAL BLOOD O2 SATURATION 87.4 % (94-98); ARTERIAL BLOOD PCO2 47.1 mmHg (35-45); ARTERIAL BLOOD PH 7.41 (7.35-7.45); ARTERIAL BLOOD PO2 53.1 mmHg (80-100); ARTERIAL BLOOD TOTAL CO2 30.4 mmol/L (21-25)
[2018-09-03 06:42] LABS: ARTERIAL BLOOD FIO2 40%
[2018-09-03] MEDS: ACETYLCYSTEINE 20% SOLN 800 MG/4 ML VIAL.NEB NEB SCH ×2 (07:49→19:49)
[2018-09-03] MEDS: BUDESONIDE NEB 0.5 MG/2 ML AMPUL NEB SCH ×2 (07:49→19:49)
[2018-09-03] MEDS: PREGABALIN 75 MG CAPSULE PO SCH ×2 (09:46→23:23)
[2018-09-03] MEDS: MAGNESIUM OXIDE 400 MG TABLET PO SCH ×2 (09:47→18:52)
[2018-09-03] MEDS: METHYLPREDNISOLONE INJ 40 MG/1 ML SDV IV SCH ×2 (09:47→23:23)
[2018-09-03] MEDS: DOCUSATE SODIUM 100 MG CAPSULE PO SCH ×2 (09:53→18:51)
[2018-09-03] MEDS: INSULIN REG, HUMAN 100 UNIT/ML 3 ML VIAL (PYX) SUBCUT PRN ×3 (09:54→19:01)
[2018-09-03] MEDS ORDERED: (PENDING PHARMACY ID) (Bupropion Hcl [Wellbutrin Xl 150 Mg 24hr Tablet] 150 MG) PO SCH (10:00)
[2018-09-03] MEDS ORDERED: POTASSIUM CHLORIDE 10 MEQ CAPSULE.ER PO SCH (10:00)
[2018-09-03] MEDS: INSULIN GLARGINE,HUM.REC.ANLOG 1,000 UNIT/10 ML VIAL SUBCUT SCH (10:28)
[2018-09-03] MEDS: BUPROPION HCL 75 MG TABLET PO SCH ×2 (10:28→23:24)
[2018-09-03] MEDS: ALLOPURINOL 300 MG TABLET PO SCH (10:30)
[2018-09-03 10:38] LABS: CREATINE KINASE MB 1.38 ng/mL (<4.55)
[2018-09-03 10:39] LABS: TROPONIN I < 0.012 ng/mL
[2018-09-03 10:45] LABS: PATH REVIEW PATHOLOGIST REVIEWED
--- NOTE | 2018-09-03 14:27 | PDOC PROGRESS REPORT ---
Subjective Progress Note for:: 09/03/18 Subjective:: This is 63 years old female patient with past medical history of congestive heart failure, hypertension, chronic respiratory failure due to COPD, CKD, tobacco dependence, obesity presented with chief complaint of progressively worsening shortness of paresis. Actually patient referred to ER by her primary care physician Dr. Silva. Patient underlying chronic hypoxemia due to O2 dependent COPD she wears oxygen 24/7. Despite using her home oxygen and kristopher thing treatment patient failed to respond. This morning her blood work shows leukopenia yesterday had put WBC count of 3 today it is 1.7 and her creatinine trended down from 1.63-1.40. Reason For Visit: ACUTE EXACERBATION OF COPD, ACUTE EXACERBATION OF Physical Exam Vital Signs: Temp Pulse Resp BP Pulse Ox 97.9 F 100 20 128/56 H 90 L 09/03/18 11:06 09/03/18 11:06 09/03/18 11:06 09/03/18 11:06 09/03/18 11:06 Intake & Output 09/02/18 09/03/18 09/04/18 06:59 06:59 06:59 Intake Total 150 480 Output Total 300 Balance 150 180 Weight 86.1 kg General appearance: PRESENT: mild distress, obese Eye exam: PRESENT: conjunctiva pink Neck exam: ABSENT: carotid bruit, JVD, lymphadenopathy, thyromegaly Respiratory exam: PRESENT: wheezes Cardiovascular exam: PRESENT: RRR. ABSENT: diastolic murmur, rubs, systolic murmur Neurological exam: PRESENT: alert, awake, oriented to person, oriented to place, oriented to time, oriented to situation Results Laboratory Results: 09/03/18 04:40 09/03/18 04:40 09/02/18 09/02/18 09/02/18 17:19 18:01 18:12 WBC 3.4 L RBC 4.58 Hgb 11.1 L Hct 37.1 MCV 81 MCH 24.3 L MCHC 30.0 L RDW 22.3 H Plt Count 124 L Seg Neutrophils % 69.4 Lymphocytes % 20.4 Monocytes % 8.1 Eosinophils % 2.0 Basophils % 0.1 Absolute Neutrophils 2.3 Absolute Lymphocytes 0.7 Absolute Monocytes 0.3 Absolute Eosinophils 0.1 Absolute Basophils 0.0 Carbonic Acid 1.35 HCO3/H2CO3 Ratio 20:1 ABG pH 7.42 ABG pCO2 44.7 ABG pO2 67.3 L ABG HCO3 28.1 H ABG O2 Saturation 93.6 L ABG Base Excess 3.1 FiO2 4L Sodium 141.3 Potassium 4.3 Chloride 104 Carbon Dioxide 32 H Anion Gap 5 BUN 29 H Creatinine 1.63 H Est GFR ( Amer) 39 L Est GFR (Non-Af Amer) 32 L Glucose 96 Calcium 8.6 Magnesium Total Bilirubin 0.7 AST 10 L ALT 20 Alkaline Phosphatase 112 Total Protein 5.1 L Albumin 3.0 L Triglycerides Cholesterol LDL Cholesterol Direct VLDL Cholesterol HDL Cholesterol TSH Free T4 Free T3 pg/mL Urine Color Urine Appearance Urine pH Ur Specific [place] Urine Protein Urine Glucose (UA) Urine Ketones Urine Blood Urine Nitrite Ur Leukocyte Esterase Urine WBC (Auto) Urine RBC (Auto) 09/03/18 09/03/18 09/03/18 01:45 04:40 04:40 WBC 1.7 L D RBC 4.52 Hgb 11.0 L Hct 36.6 MCV 81 MCH 24.3 L MCHC 30.0 L RDW 22.6 H Plt Count 113 L Seg Neutrophils % Lymphocytes % Monocytes % Eosinophils % Basophils % Absolute Neutrophils Absolute Lymphocytes Absolute Monocytes Absolute Eosinophils Absolute Basophils Carbonic Acid HCO3/H2CO3 Ratio ABG pH ABG pCO2 ABG pO2 ABG HCO3 ABG O2 Saturation ABG Base Excess FiO2 Sodium 138.8 Potassium 4.7 Chloride 107 Carbon Dioxide 26 Anion Gap 6 BUN 31 H Creatinine 1.40 H Est GFR ( Amer) 46 L Est GFR (Non-Af Amer) 38 L Glucose 233 H Calcium 8.7 Magnesium 1.7 Total Bilirubin AST ALT Alkaline Phosphatase Total Protein Albumin Triglycerides 84 Cholesterol 75.35 LDL Cholesterol Direct 42 VLDL Cholesterol 17.0 HDL Cholesterol 31 L TSH Free T4 Free T3 pg/mL Urine Color YELLOW Urine Appearance CLOUDY Urine pH 5.0 Ur Specific [place] 1.012 Urine Protein NEGATIVE Urine Glucose (UA) NEGATIVE Urine Ketones NEGATIVE Urine Blood NEGATIVE Urine Nitrite NEGATIVE Ur Leukocyte Esterase MODERATE H Urine WBC (Auto) 21 Urine RBC (Auto) 1 09/03/18 09/03/18 04:40 06:25 WBC RBC Hgb Hct MCV MCH MCHC RDW Plt Count Seg Neutrophils % Lymphocytes % Monocytes % Eosinophils % Basophils % Absolute Neutrophils Absolute Lymphocytes Absolute Monocytes Absolute Eosinophils Absolute Basophils Carbonic Acid 1.42 H HCO3/H2CO3 Ratio 20:1 ABG pH 7.41 ABG pCO2 47.1 H ABG pO2 53.1 L ABG HCO3 28.9 H ABG O2 Saturation 87.4 L ABG Base Excess 3.5 FiO2 40% Sodium Potassium Chloride Carbon Dioxide Anion Gap BUN Creatinine Est GFR ( Amer) Est GFR (Non-Af Amer) Glucose Calcium Magnesium Total Bilirubin AST ALT Alkaline Phosphatase Total Protein Albumin Triglycerides Cholesterol LDL Cholesterol Direct VLDL Cholesterol HDL Cholesterol TSH 0.81 Free T4 1.53 Free T3 pg/mL 3.24 Urine Color Urine Appearance Urine pH Ur Specific [place] Urine Protein Urine Glucose (UA) Urine Ketones Urine Blood Urine Nitrite Ur Leukocyte Esterase Urine WBC (Auto) Urine RBC (Auto) 09/02/18 09/02/18 09/02/18 18:01 22:05 22:05 Creatine Kinase 41 CK-MB (CK-2) 1.10 Troponin I 0.018 NT-Pro-B Natriuret Pep 1950 H 09/03/18 09/03/18 09/03/18 04:40 04:40 04:40 Creatine Kinase 35 CK-MB (CK-2) 1.05 Troponin I < 0.012 NT-Pro-B Natriuret Pep 1510 H 09/03/18 09/03/18 09:46 09:46 Creatine Kinase 31 CK-MB (CK-2) 1.38 Troponin I < 0.012 NT-Pro-B Natriuret Pep Impressions: Chest X-Ray 09/02/18 17:19 IMPRESSION: NO ACUTE FINDINGS. Assessment and Plan - Diagnosis (1) Acute and chronic respiratory failure with hypoxia Is this a current diagnosis for this admission?: Yes Plan: Continue supplemental oxygen, bronchodilators and steroid. (2) Acute exacerbation of CHF (congestive heart failure) Qualifiers: Heart failure type: unspecified Qualified Code(s): I50.9 - Heart failure, unspecified Is this a current diagnosis for this admission?: Yes Plan: Patient is on Lasix and other cardioprotective medications. (3) COPD exacerbation Is this a current diagnosis for this admission?: Yes Plan: As #1 (4) Obesity Is this a current diagnosis for this admission?: Yes Plan: Lifestyle modification advised (5) Stage III chronic kidney disease Is this a current diagnosis for this admission?: Yes Plan: Her kidney function is improving. We will avoid nephrotoxic agents. (6) Tobacco dependence Is this a current diagnosis for this admission?: Yes Plan: Patient counseled and encouraged to quit smoking. And she voices agreement. (7) Obstructive sleep apnea Is this a current diagnosis for this admission?: Yes Plan: Continue CPAP.
[2018-09-03] MEDS: ATORVASTATIN CALCIUM 80 MG TABLET PO SCH (23:24)
[2018-09-04] MEDS: IPRATROPIUM BROMIDE 0.02% NEB 0.5 MG/2.5 ML AMPUL NEB SCH ×2 (00:26→08:30)
[2018-09-04] MEDS: LEVALBUTEROL HCL NEB 1.25 MG/3 ML AMPUL NEB SCH ×2 (00:26→08:29)
[2018-09-04] MEDS: BUMETANIDE INJ/PF 1 MG/4 ML SDV IV SCH ×3 (00:59→12:02)
[2018-09-04] MEDS: INSULIN REG, HUMAN 100 UNIT/ML 3 ML VIAL (PYX) SUBCUT PRN ×3 (01:14→12:02)
[2018-09-04] MEDS: OXYCODONE HCL IR 5 MG TABLET PO PRN ×2 (01:30→08:11)
[2018-09-04 05:18] LABS: ABSOLUTE LYMPHOCYTES (AUTO) 0.2 10^3/uL (0.5-4.7); ABSOLUTE MONOCYTES (AUTO) 0.1 10^3/uL (0.1-1.4); ABSOLUTE NEUT (AUTO) 2.1 10^3/uL (1.7-8.2); BASOPHILS % (AUTO) 0.2 % (0-2); HEMATOCRIT 34.9 % (36.0-47.0); HEMOGLOBIN 10.6 g/dL (12.0-15.5); LYMPHOCYTES % (AUTO) 7.7 % (13-45); MEAN CORPUSCULAR HEMOGLOBIN 24.3 pg (27.0-33.4); MEAN CORPUSCULAR HGB CONC 30.3 g/dL (32.0-36.0); MEAN CORPUSCULAR VOLUME 80 fl (80-97); MONOCYTES % (AUTO) 4.2 % (3-13); PLATELET COUNT 128 10^3/uL (150-450); RED BLOOD COUNT 4.36 10^6/uL (3.72-5.28); RED CELL DISTRIBUTION WIDTH 21.8 % (11.5-14.0); SEGMENTED NEUTROPHILS % (AUTO) 87.9 % (42-78); TOTAL CELLS COUNTED % (AUTO) 100 %; WHITE BLOOD COUNT 2.3 10^3/uL (4.0-10.5)
[2018-09-04 05:40] LABS: ANISOCYTOSIS 3+; PLATELET COMMENT DECREASED; POLYCHROMASIA SLIGHT
[2018-09-04 05:41] LABS: ANION GAP 7 (5-19); BLOOD UREA NITROGEN 41 mg/dL (7-20); CALCIUM 8.6 mg/dL (8.4-10.2); CARBON DIOXIDE 29 mmol/L (22-30); CHLORIDE 102 mmol/L (98-107); GLUCOSE 192 mg/dL (75-110); POTASSIUM 5.3 mmol/L (3.6-5.0); SODIUM 137.6 mmol/L (137-145)
[2018-09-04] MEDS: HEPARIN SOD (PORCINE) 5,000 UNIT/ML 1 ML SYRINGE SUBCUT SCH (06:12)
[2018-09-04] MEDS: PANTOPRAZOLE SODIUM 40 MG TABLET.DR PO SCH (08:16)
[2018-09-04] MEDS: ACETYLCYSTEINE 20% SOLN 800 MG/4 ML VIAL.NEB NEB SCH (08:30)
[2018-09-04] MEDS: BUDESONIDE NEB 0.5 MG/2 ML AMPUL NEB SCH (08:30)
[2018-09-04] MEDS ORDERED: FLUTICASONE NASAL SPRAY 50 MCG/SPRY 120 SPRAY/16 GM NASL SCH (10:00)
[2018-09-04] MEDS: METHYLPREDNISOLONE INJ 40 MG/1 ML SDV IV SCH (10:02)
[2018-09-04] MEDS: PREGABALIN 75 MG CAPSULE PO SCH (10:02)
[2018-09-04] MEDS: DOCUSATE SODIUM 100 MG CAPSULE PO SCH (10:02)
[2018-09-04] MEDS: MAGNESIUM OXIDE 400 MG TABLET PO SCH (10:03)
[2018-09-04] MEDS: ALLOPURINOL 300 MG TABLET PO SCH (10:09)
[2018-09-04] MEDS: BUPROPION HCL 75 MG TABLET PO SCH (10:09)
[2018-09-04] MEDS: INSULIN GLARGINE,HUM.REC.ANLOG 1,000 UNIT/10 ML VIAL SUBCUT SCH (10:12)
[2018-09-04] MEDS ORDERED: SODIUM POLYSTYRENE SULFONATE 15 GM/60 ML PO ONE (10:30)
--- NOTE | 2018-09-04 11:40 | PDOC DISCHARGE SUMMARY ---
General - Admit/Disc Date/PCP Admission Date/Primary Care Provider: 09/02/18 19:40 MARGRET SILVA MD Discharge Date: 09/04/18 - Discharge Diagnosis (1) Acute and chronic respiratory failure with hypoxia Is this a current diagnosis for this admission?: Yes (2) Acute exacerbation of CHF (congestive heart failure) Is this a current diagnosis for this admission?: Yes (3) COPD exacerbation Is this a current diagnosis for this admission?: Yes (4) Obesity Is this a current diagnosis for this admission?: Yes (5) Stage III chronic kidney disease Is this a current diagnosis for this admission?: Yes (6) Tobacco dependence Is this a current diagnosis for this admission?: Yes (7) Obstructive sleep apnea Is this a current diagnosis for this admission?: Yes - Additional Information Resuscitation Status: Full Code Discharge Diet: Cardiac, Diabetic, Other (Comments) Discharge Activity: Activity As Tolerated, Balance Activity w/Rest, Weigh Daily Home Medications: Albuterol Sulfate [Proair HFA Inhalation Aerosol 8.5 gm MDI] 2 puff HE Q6HP PRN 09/02/18 Allopurinol [Zyloprim 300 mg Tablet] 300 mg PO DAILY 09/02/18 Atorvastatin Calcium [Lipitor 80 mg Tablet] 80 mg PO QHS 09/02/18 Bumetanide [Bumex 1 mg Tablet] 1 mg PO BID 09/02/18 Bupropion HCl [Wellbutrin Xl 150 mg 24hr Tablet] 150 mg PO DAILY 09/02/18 Fluticasone Propionate [Flonase Nasal [place] 50 Mcg/[place] 16 gm] 1 spray NASL DAILY 09/02/18 Fluticasone/Salmeterol [Advair 500-50 Diskus 14 Dose/Diskus] 1 puff IH Q12 09/02/18 Insulin Glargine,Hum.rec.anlog [Lantus Insulin 100 Unit/1 ml 10 ml] 35 units SQ DAILY 09/02/18 Insulin Lispro [Humalog Kwikpen U-100] See Protocol SQ MEALS 09/02/18 Magnesium Oxide [Mag-Ox 400 mg Tablet] 400 mg PO BID 09/02/18 Omeprazole 40 mg PO DAILY 09/02/18 Oxycodone HCl [Oxycodone HCl 10 MG Tablet] 10 mg PO Q6HP PRN 09/02/18 Potassium Chloride [Klor-Con 10 Meq Capsule ER] 10 meq PO DAILY 09/02/18 Pregabalin [Lyrica] 150 mg PO BID 09/02/18 Sennosides [Senna] 2 tab PO QHS 09/02/18 History of Present Illness History of Present Illness: TAI FAN is a 63 year old female who presented to the emergency room from her primary care provider's office via EMS with a 2-day history of dyspnea. She admits a worsening of her dyspnea over the last 2 days despite use of continuous oxygen at 4 L/min as well as bronchodilators at home. Her dyspnea has become severe and is increased on exertion. She sought relief at Dr. Garcia's office earlier today but was found to have an O2 sat of 85% and was sent to the emergency room via EMS from Dr. Silva's office. She admits that her dyspnea has been accompanied by a cough productive of greenish mucus and a continuous dull achy generalized chest pain. Additionally she admits increased swelling of her bilateral lower extremities and orthopnea. She denies other associated or accompanying signs and symptoms. She admits numerous prior similar episodes related to her heart failure and COPD. She continues to smoke cigarettes but denies identification of any aggravating or ameliorating factors for her dyspnea. In the emergency room she was found to have mild hypoxia and bilateral lower extremity edema. She was started on Levaquin by the ER jeane gee and was subsequently admitted to the hospital for further evaluation and treatment. Hospital Course Hospital Course: This is 63 years old female patient with past medical history of congestive heart failure, hypertension, chronic respiratory failure due to COPD, CKD, tobacco dependence, obesity presented with chief complaint of progress ively worsening shortness of paresis. Actually patient referred to ER by her primary care physician Dr. Silva. Patient underlying chronic hypoxemia due to O2 dependent COPD she wears oxygen 15/09. Despite using her home oxygen and breathing treatment patient failed to respond. This morning her blood work shows leukopenia yesterday had put WBC count of 3 today it is 1.7 and her creatinine trended down from 1.63-1.40. 09/04/2018: Patient seen and examined while she is sitting up in bed. She is awake alert oriented. She reports this her shortness of breath is remarkably improved and she is now currently she is at her baseline. On examination also her wheezing reduced still she has some occasional wheezing bilaterally. Her labs reviewed and she has mild hypokalemia with potassium of 5.3 for which she is given Kayexalate. I will check her BMP at 2 PM and she is good to go home. I will continue her home health. Physical Exam Vital Signs: Temp Pulse Resp BP Pulse Ox 98.2 F 92 21 H 107/54 L 90 L 09/04/18 00:03 09/04/18 08:30 09/04/18 08:30 09/04/18 00:03 09/04/18 08:30 Intake & Output 09/03/18 09/04/18 09/05/18 06:59 06:59 06:59 Intake Total 150 1280 Output Total 300 Balance 150 980 Weight 86.1 kg 86.4 kg General appearance: PRESENT: no acute distress Head exam: PRESENT: atraumatic Respiratory exam: PRESENT: wheezes Cardiovascular exam: PRESENT: RRR. ABSENT: diastolic murmur, rubs, systolic murmur Neurological exam: PRESENT: alert, awake, oriented to person, oriented to place, oriented to time, oriented to situation Results Laboratory Results: 09/04/18 04:49 09/04/18 04:49 09/04/18 09/04/18 04:49 04:49 WBC 2.3 L RBC 4.36 Hgb 10.6 L Hct 34.9 L MCV 80 MCH 24.3 L MCHC 30.3 L RDW 21.8 H Plt Count 128 L Seg Neutrophils % 87.9 H Lymphocytes % 7.7 L Monocytes % 4.2 Eosinophils % 0.0 Basophils % 0.2 Absolute Neutrophils 2.1 Absolute Lymphocytes 0.2 L Absolute Monocytes 0.1 Absolute Eosinophils 0.0 Absolute Basophils 0.0 Sodium 137.6 Potassium 5.3 H Chloride 102 Carbon Dioxide 29 Anion Gap 7 BUN 41 H Creatinine 1.48 H Est GFR ( Amer) 43 L Est GFR (Non-Af Amer) 36 L Glucose 192 H Calcium 8.6 Magnesium 1.8 09/02/18 09/02/18 09/02/18 18:01 22:05 22:05 Creatine Kinase 41 CK-MB (CK-2) 1.10 Troponin I 0.018 NT-Pro-B Natriuret Pep 1950 H 07/12/19 07/12/19 07/12/19 04:40 04:40 04:40 Creatine Kinase 35 CK-MB (CK-2) 1.05 Troponin I < 0.012 NT-Pro-B Natriuret Pep 1510 H 09/03/18 09/03/18 09:46 09:46 Creatine Kinase 31 CK-MB (CK-2) 1.38 Troponin I < 0.012 NT-Pro-B Natriuret Pep Impressions: Chest X-Ray 09/02/18 17:19 IMPRESSION: NO ACUTE FINDINGS. Qualifiers - * PATIENT BEING DISCHARGED WITH ANY OF THE FOLLOWING DIAGNOSIS: No Acute Heart Failure - Is this a Heart Failure Patient?: No LVEF < 40%?: No- if no continue to question #3 3. Anticoagulant therapy for permanect/persistent/paraoxysmal Afib or Aflutter: N/A
[2018-09-04 12:41] VITALS: BP 135/66
== END 2018-09-04 12:45 | disposition home or self-care (01) | DRG 189 ==
LOC: ER 17:14 → EH 19:40 → 4S 09-03 00:30
PROVIDERS: ADMIT Emergency Medicine; ATTEND Emergency Medicine
PROC: 5A09457 Assistance with Respiratory Ventilation, 24-96 Consecutive Hours, Continuous Positive Airway Pressure (ICD-10-PCS; principal; 2018-09-02)
DX: J96.21 Acute and chronic respiratory failure with hypoxia (principal); J44.1 Chronic obstructive pulmonary disease with (acute) exacerbation; I13.0 Hypertensive heart and chronic kidney disease with heart failure and stage 1 through stage 4 chronic kidney disease, or unspecified chronic kidney disease; Z99.81 Dependence on supplemental oxygen; F17.210 Nicotine dependence, cigarettes, uncomplicated; N18.3 Chronic kidney disease, stage 3 (moderate); I50.9 Heart failure, unspecified; G47.30 Sleep apnea, unspecified; E11.22 Type 2 diabetes mellitus with diabetic chronic kidney disease; G89.4 Chronic pain syndrome; E87.6 Hypokalemia; E66.9 Obesity, unspecified; I87.8 Other specified disorders of veins; M10.9 Gout, unspecified; Z90.710 Acquired absence of both cervix and uterus; Z79.51 Long term (current) use of inhaled steroids; Z82.49 Family history of ischemic heart disease and other diseases of the circulatory system; Z79.4 Long term (current) use of insulin; Z88.2 Allergy status to sulfonamides
CPT/HCPCS: 36415; 36600; 71045; 80048; 80053; 80061; 81001; 82550; 82553; 82803; 82962; 83036; 83735; 83880; 84439; 84443; 84481; 84484; 85025; 85027; 87040; 93005; 93010; 94660; 99285; J1644; J1815; J1956; J2270; J2920; J2930; J3480; J3490; J7614; J7620

== ENCOUNTER 2018-09-17 23:35 | Inpatient (IN) | payer MEDICAID ==
[2018-09-18 00:16] LABS: ABSOLUTE EOSINOPHILS # (AUTO) 0.1 10^3/uL (0.0-0.6); ABSOLUTE LYMPHOCYTES (AUTO) 1.2 10^3/uL (0.5-4.7); ABSOLUTE MONOCYTES (AUTO) 0.3 10^3/uL (0.1-1.4); ABSOLUTE NEUT (AUTO) 2.9 10^3/uL (1.7-8.2); BASOPHILS % (AUTO) 0.4 % (0-2); EOSINOPHILS % (AUTO) 2.2 % (0-6); HEMATOCRIT 39.8 % (36.0-47.0); LYMPHOCYTES % (AUTO) 26.1 % (13-45); MEAN CORPUSCULAR HGB CONC 30.1 g/dL (32.0-36.0); MEAN CORPUSCULAR VOLUME 80 fl (80-97); MONOCYTES % (AUTO) 7.4 % (3-13); PLATELET COUNT 111 10^3/uL (150-450); RED BLOOD COUNT 4.98 10^6/uL (3.72-5.28); RED CELL DISTRIBUTION WIDTH 21.7 % (11.5-14.0); SEGMENTED NEUTROPHILS % (AUTO) 63.9 % (42-78); TOTAL CELLS COUNTED % (AUTO) 100 %; WHITE BLOOD COUNT 4.6 10^3/uL (4.0-10.5)
[2018-09-18 00:35] LABS: ALANINE AMINOTRANSFERASE 16 U/L (9-52); ALBUMIN 3.3 g/dL (3.5-5.0); ALKALINE PHOSPHATASE 117 U/L (38-126); ANION GAP 6 (5-19); ASPARTATE AMINO TRANSFERASE 9 U/L (14-36); BILIRUBIN,DIRECT 0.2 mg/dL (0.0-0.4); BILIRUBIN,TOTAL 0.7 mg/dL (0.2-1.3); BLOOD UREA NITROGEN 24 mg/dL (7-20); CALCIUM 8.9 mg/dL (8.4-10.2); CARBON DIOXIDE 34 mmol/L (22-30); CHLORIDE 102 mmol/L (98-107); GLUCOSE 162 mg/dL (75-110); POTASSIUM 3.8 mmol/L (3.6-5.0); TOTAL PROTEIN 5.4 g/dL (6.3-8.2)
[2018-09-18 00:56] LABS: VENOUS BLOOD BASE EXCESS 6.3 mmol/L; VENOUS BLOOD PCO2 63.4 mmHg (35-63); VENOUS BLOOD PH 7.35 (7.30-7.42)
--- NOTE | 2018-09-18 01:01 | RADIOLOGY REPORT (SQ) ---
EXAM DESCRIPTION: X-ray two view chest. CLINICAL HISTORY: 63 years Female, cough, increased SOB, hypoxia COMPARISON: 09/02/2018 and 08/15/2018 TECHNIQUE: AP and Lateral views of the chest performed on 09/18/2018 at 12:46 AM FINDINGS: The lungs are well expanded. There is patchy bibasilar opacification which may be secondary to fibrosis and/or atelectasis. Underlying inflammatory changes are not entirely excluded. No definite pleural effusions are seen. There is no evidence of a pneumothorax. The cardiac silhouette is within normal limits. The mediastinal contours are normal. No acute osseous abnormalities are identified. No focal soft tissue abnormalities are identified. IMPRESSION: 1. Patchy bibasilar opacification likely reflecting atelectasis and/or fibrosis. Underlying inflammatory changes are not entirely excluded. 2. Otherwise, the lungs are grossly clear.
[2018-09-18] MEDS ORDERED: ALBUTEROL SULFATE 0.083% NEB 2.5 MG/3 ML AMPUL NEB ONE ×2 (01:42→03:55)
[2018-09-18] MEDS ORDERED: LIDOCAINE 5% (700 MG) TRANSDERMAL ADH..PATCH TP ONE (01:42)
--- NOTE | 2018-09-18 03:06 | ER Document Report ---
Entered by ELAN MORA SCRIBE 09/17/18 2344 Acting as scribe for:RUPINDER HERNANDEZ DO ED Respiratory Problem - General Stated Complaint: SHORT OF BREATH Time Seen by Provider: 09/17/18 23:36 Primary Care Provider: MARGRET SCOTT MD [Primary Care Provider] - Follow up as needed Mode of Arrival: Medic Information source: Patient, Emergency Med Personnel Notes: Patient is a 63-year-old female with COPD and CHF who presents to the emergency department today with complaints of shortness of breath which began just prior to arrival. EMS reports the patient had an oxygen saturation of 85% on her baseline 3L of home oxygen. EMS reports giving 1 DuoNeb treatment, 125 mg Solu- Medrol, and 2 albuterol treatments which along with 8L of oxygen brought the patient's oxygen saturation to 92%. Patient states her symptoms today feel more similar to a COPD exacerbation than a CHF exacerbation. Patient states she has a productive cough with green sputum but states that the cough has not changed from her baseline chronic cough. Patient states that the erythema in her lower extremities is chronic and unchanged. Patient denies any chest pain, nausea, vomiting, diarrhea, or fevers. Patient states she has never had to be intubated in the past for her COPD. Patient is a smoker. TRAVEL OUTSIDE OF THE [place] IN LAST 30 DAYS: No - Related Data Allergies/Adverse Reactions: Sulfa (Sulfonamide Antibiotics) Allergy (Verified 09/17/18 23:53) Past Medical History - General Information source: Patient, [facility] Records - Social History Smoking Status: Current Every Day Smoker Cigarette use (# per day): Yes Chew tobacco use (# tins/day): No Smoking Education Provided: No Frequency of alcohol use: None Drug Abuse: None Lives with: Family Family History: COPD, Hypertension - Past Medical History Cardiac Medical History: Reports: Hx Congestive Heart Failure, Hx Hypertension Pulmonary Medical History: Reports: Hx Bronchitis, Hx COPD - O2 dependent COPD, Hx Pneumonia, Hx Respiratory Failure, Hx Sleep Apnea Endocrine Medical History: Reports: Hx Diabetes Mellitus Type 2 Musculoskeletal Medical History: Reports Hx Gout Psychiatric Medical History: Reports: Hx Depression Past Surgical History: Reports: Hx Section, Hx Hysterectomy, Hx Orthopedic Surgery - Bilateral carpal tunnel surgery, back surgery., Hx Vascular Surgery - Bilateral carotid endarterectomies - Immunizations Hx Diphtheria, Pertussis, Tetanus Vaccination: Yes Hx Pneumococcal Vaccination: 02/23/09 Review of Systems - Review of Systems Constitutional: denies: Fever EENT: No symptoms reported Cardiovascular: denies: Chest pain Respiratory: See HPI, Cough, Short of breath Gastrointestinal: denies: Diarrhea, Nausea, Vomiting Genitourinary: No symptoms reported Female Genitourinary: No symptoms reported Musculoskeletal: No symptoms reported Skin: No symptoms reported Hematologic/Lymphatic: No symptoms reported Neurological/Psychological: No symptoms reported -: Yes All other systems reviewed and negative Physical Exam - Vital signs Vitals: Temp Pulse Resp BP Pulse Ox 98.3 F 90 15 156/66 H 92 09/17/18 23:35 09/17/18 23:35 09/17/18 23:35 09/17/18 23:35 09/17/18 23:35 - Notes Notes: PHYSICAL EXAM GENERAL: Alert, interacts well. No acute distress. HEAD: Normocephalic, atraumatic. EYES: Pupils equal, round, and reactive to light. Extraocular movements intact. ENT: Oral mucosa moist, tongue midline. NECK: Full range of motion. Supple. Trachea midline. LUNGS: Wet cough. Mild expiratory wheezing bilaterally, no rales or rhonchi. No respiratory distress. HEART: Regular rate and rhythm. No murmurs, gallops, or rubs. ABDOMEN: Soft, non-tender. Non-distended. Bowel sounds present in all 4 quadrants. No guarding, rigidity, or rebound. EXTREMITIES: Moves all 4 extremities spontaneously. 1-2+ pitting edema bilaterally. Erythema to bilateral lower extremities which the patient reports as chronic. Some woodiness of the left lower extremity. Radial and dorsalis pedis pulses 2/4 bilaterally. No cyanosis. NEUROLOGICAL: Alert and oriented x3. Normal speech. PSYCH: Normal affect, normal mood. SKIN: Warm and dry. Course - Re-evaluation Re-evalutation: 09/18/18 01:27 Patchy bibasilar opacification likely reflecting atelectasis and/or fibrosis underlying inflammatory changes are not entirely excluded per radiology interpretation. CBC shows slight low platelets at 111, venous blood gas grossly unremarkable, consistent with COPD, mild CO2 retention, CMP grossly unremarkable. After 3 breathing treatments from EMS the patient's lungs are clear. She does have slightly increased oxygen requirement from baseline, currently using 4 L via nasal cannula instead of 3. At present I do not see an indication for admission to the hospital as she can slightly increase her oxygen at home, continue breathing treatments at home, be started on oral steroids and be discharged to home. Given the lack of fever, lack of increased mucus production and the normal white blood cell count there is no indication to start antibiotics at this time. Patient will be discharged to home. 09/18/18 01:43 Patient does state that she has some tenderness palpation on her left anterior chest wall after hitting her ribs in physical therapy today. No other chest pain. Pain is reproducible on examination. Patient will have a Lidoderm patch placed. - Vital Signs Vital signs: Temp Pulse Resp BP Pulse Ox 98.3 F 89 16 111/48 L 91 L 09/17/18 23:35 09/17/18 23:35 09/18/18 01:02 09/18/18 01:02 09/18/18 01:02 - Laboratory Result Diagrams: 09/17/18 23:50 09/17/18 23:50 Laboratory results interpreted by me: 09/17/18 09/17/18 09/18/18 23:50 23:50 00:45 MCH 24.0 L MCHC 30.1 L RDW 21.7 H Plt Count 111 L VBG pCO2 63.4 H VBG HCO3 34.0 H Carbon Dioxide 34 H BUN 24 H Est GFR (Non-Af Amer) 57 L Glucose 162 H AST 9 L Total Protein 5.4 L Albumin 3.3 L Discharge - Discharge Clinical Impression: Acute exacerbation of chronic obstructive pulmonary disease (COPD) Condition: Stable Disposition: HOME, SELF-CARE Additional Instructions: You are having a flare of your COPD. You should take the steroids as directed until they are gone. There is no need for antibiotic at this time. If you develop a fever, develop increasing mucus then we may need to start antibiotics at that time. I want you to take your albuterol nebulizer one breathing treatment every 4 hours scheduled for the next 2 days after that you may simply use one breathing treatment every 4 hours as needed. If you end up needing a breathing treatment more than every 4 hours you should return to the emergency department as you may need to be admitted. You may use up to 4 L of oxygen via nasal cannula if you are feeling short of breath. If you need to go up to 5 L she should return to the emergency department. Notify your doctor at once if sputum becomes thick, foul, or bloody, if you develop a fever or chest pain, or if your shortness of breath worsens. Prescriptions: Albuterol Sulfate [Proventil 0.5% Neb 2.5 mg/0.5 ml Vial.neb] 2.5 mg NEB Q4HP PRN #30 vial.neb PRN Reason: Prednisone [Deltasone 10 mg Tablet] 10 mg PO ASDIR PRN #21 tablet PRN Reason: Referrals: MARGRET SCOTT MD [Primary Care Provider] - Follow up as needed I personally performed the services described in the documentation, reviewed and edited the documentation which was dictated to the scribe in my presence, and it accurately records my words and actions.
[2018-09-18] MEDS ORDERED: LEVALBUTEROL HCL NEB 0.63 MG/3 ML AMPUL NEB PRN (05:24)
[2018-09-18] MEDS ORDERED: MAG HYDROX/AL HYDROX/SIMETH SUSP 30 ML UDCUP PO PRN (05:24)
[2018-09-18] MEDS ORDERED: MAGNESIUM HYDROXIDE SUSP 30 ML UDCUP PO PRN (05:24)
[2018-09-18] MEDS ORDERED: ONDANSETRON HCL INJ/PF 4 MG/2 ML SDV IV PRN (05:24)
[2018-09-18] MEDS ORDERED: ACETAMINOPHEN 325 MG TABLET PO PRN (05:29)
[2018-09-18] MEDS ORDERED: HYDRALAZINE HCL INJ/PF 20 MG/1 ML SDV IV PRN (05:29)
[2018-09-18] MEDS ORDERED: NICOTINE 21 MG/24 HR PATCH.TD24 TD PRN (05:29)
[2018-09-18] MEDS ORDERED: DEXTROSE 40% GEL 15 GM TUBE PO PRN ×2 (05:30)
[2018-09-18] MEDS ORDERED: DEXTROSE 50%-WATER 25 GM/50 ML DISP.SYRIN IV PRN ×2 (05:30)
[2018-09-18] MEDS ORDERED: GLUCAGON,HUMAN RECOMB 1 MG INJ IM PRN (05:30)
[2018-09-18] MEDS: NALBUPHINE HCL INJ 10 MG/1 ML AMPULE IV PRN ×4 (06:24→17:27)
[2018-09-18] MEDS: PANTOPRAZOLE SODIUM 40 MG TABLET.DR PO SCH ×2 (06:25→17:28)
[2018-09-18] MEDS: HEPARIN SOD (PORCINE) 5,000 UNIT/ML 1 ML VIAL SUBCUT SCH ×3 (06:25→21:55)
[2018-09-18 06:40] LABS: CREATINE KINASE MB 0.73 ng/mL (<4.55); TROPONIN I 0.033 ng/mL
--- NOTE | 2018-09-18 06:53 | PDOC H&P ---
History of Present Illness Admission Date/PCP: 09/18/2018 05:03 MARGRET SCOTT MD Patient complains of: Dyspnea History of Present Illness: TAI FAN is a 63 year old female emergency room with acute onset dyspnea. Patient admits the sudden onset of severe dyspnea beginning less than an hour prior to her ER arrival at 11:30 PM. Sudden shortness of breath at home and called EMS to bring her to the hospital. EMS gave her a DuoNeb breathing treatment in the 125 mg of Solu-Medrol IV as well as 2 albuterol breathing treatments achieving a O2 sat of 85% on per minute of oxygen via nasal cannula. Patient was subsequently delivered increased oxygen at 8 L/min via mask bring her oxygen saturation to 92%. She denies accompanying or associated symptoms. She admits numerous prior similar episodes related to her COPD and CHF. She has not identified any aggravating or ameliorating factors for her acute dyspnea. In the emergency room she was found to have acute and chronic hypoxic respiratory failure and she was unable to tolerate activity without substantial worsening of her respiratory status therefore she was admitted to the hospital for further evaluation and treatment. Past Medical History Cardiac Medical History: Reports: Congestive Heart Failure, Hypertension Denies: Coronary Artery Disease Pulmonary Medical History: Reports: Bronchitis, Chronic Obstructive Pulmonary Disease (COPD) - O2 dependent COPD, Pneumonia, Respiratory Failure, Sleep Apnea Denies: Asthma EENT Medical History: Denies: Cataracts, Ears - Hearing aids Neurological Medical History: Denies: Hemorrhagic CVA, Ischemic CVA, Multiple Sclerosis, Seizures Endocrine Medical History: Reports: Diabetes Mellitus Type 2 Denies: Diabetes Mellitus Type 1, Hyperthyroidism, Hypothyroidism Renal/ Medical History: Denies: Chronic Kidney Disease, Nephrolithiasis Malignancy Medical History: Reports: None GI Medical History: Denies: Cirrhosis, Hepatitis Musculoskeltal Medical History: Reports: Gout Denies: Arthritis, Fibromyalgia Skin Medical History: Denies: Eczema, Psoriasis Psychiatric Medical History: Reports: Depression, Tobacco Dependency Denies: Alcohol Dependency, Substance Abuse Traumatic Medical History: Reports: None Hematology: Denies: Anemia, Bleeding Tendencies Infectious Medical History: Reports: None Past Surgical History Past Surgical History: Reports: Section, Hysterectomy, Orthopedic Surgery - Bilateral carpal tunnel surgery, back surgery., Vascular Surgery - Bilateral carotid endarterectomies Social History Information Source: Patient Lives with: Family Smoking Status: Current Every Day Smoker Frequency of Alcohol Use: None Hx Recreational Drug Use: No Drugs: None Hx Prescription Drug Abuse: Yes - History of suspected Percocet misuse - Advance Directive Resuscitation Status: Full Code Surrogate healthcare decision maker:: Saadia Fan Family History Family History: COPD, Hypertension Parental Family History Reviewed: Yes Children Family History Reviewed: No Sibling(s) Family History Reviewed.: Yes Medication/Allergy Home Medications: Albuterol Sulfate [Proair HFA Inhalation Aerosol 8.5 gm MDI] 2 puff HE Q6HP PRN 09/02/18 Allopurinol [Zyloprim 300 mg Tablet] 300 mg PO DAILY 09/02/18 Atorvastatin Calcium [Lipitor 80 mg Tablet] 80 mg PO QHS 09/02/18 Bumetanide [Bumex 1 mg Tablet] 1 mg PO BID 09/02/18 Bupropion HCl [Wellbutrin Xl 150 mg 24hr Tablet] 150 mg PO DAILY 09/02/18 Fluticasone Propionate [Flonase Nasal [place] 50 Mcg/[place] 16 gm] 1 spray NASL DAILY 09/02/18 Fluticasone/Salmeterol [Advair 500-50 Diskus 14 Dose/Diskus] 1 puff IH Q12 09/02/18 Insulin Glargine,Hum.rec.anlog [Lantus Insulin 100 Unit/1 ml 10 ml] 35 units SQ DAILY 09/02/18 Insulin Lispro [Humalog Kwikpen U-100] See Protocol SQ MEALS 09/02/18 Magnesium Oxide [Mag-Ox 400 mg Tablet] 400 mg PO BID 09/02/18 Omeprazole 40 mg PO DAILY 09/02/18 Oxycodone HCl [Oxycodone HCl 10 MG Tablet] 10 mg PO Q6HP PRN 09/02/18 Potassium Chloride [Klor-Con 10 Meq Capsule ER] 10 meq PO DAILY 09/02/18 Pregabalin [Lyrica] 150 mg PO BID 09/02/18 Sennosides [Senna] 2 tab PO QHS 09/02/18 Albuterol Sulfate [Proventil 0.5% Neb 2.5 mg/0.5 ml Vial.neb] 2.5 mg NEB Q4HP PRN #30 vial.neb 09/18/18 Allergies/Adverse Reactions: Sulfa (Sulfonamide Antibiotics) Allergy (Verified 09/17/18 23:53) Review of Systems Constitutional: ABSENT: chills, fever(s) Eyes: ABSENT: visual disturbances, other - Eye Pain Ears: PRESENT: other - Ear pain. ABSENT: hearing changes Nose, Mouth, and Throat: ABSENT: mouth pain, sore throat Cardiovascular: PRESENT: dyspnea on exertion. ABSENT: chest pain, edema, orthropnea, palpitations Respiratory: PRESENT: cough, dyspnea, sputum - Usual greenish sputum, other - Increased wheezing Gastrointestinal: ABSENT: abdominal pain, constipation, diarrhea, nausea, vomiting Genitourinary: ABSENT: dysuria, hematuria Musculoskeletal: ABSENT: back pain, joint swelling, muscle weakness Integumentary: ABSENT: pruritus, rash Neurological: ABSENT: confusion, convulsions, focal weakness, memory loss, syncope Psychiatric: ABSENT: anxiety, depression Endocrine: ABSENT: cold intolerance, heat intolerance Hematologic/Lymphatic: ABSENT: easy bleeding, easy bruising Physical Exam Vital Signs: Temp Pulse Resp BP Pulse Ox 98 F 113 H 16 109/53 L 89 L 09/18/18 03:32 09/18/18 03:32 09/18/18 04:01 09/18/18 04:00 09/18/18 04:01 Intake & Output 09/16/18 09/17/18 09/18/18 23:59 23:59 23:59 Weight 78.925 kg General appearance: PRESENT: no acute distress, cooperative, other - Resting comfortably on supplemental cannula Head exam: PRESENT: atraumatic, normocephalic Eye exam: PRESENT: conjunctiva pink. ABSENT: conjunctival injection, scleral icterus Ear exam: PRESENT: normal external ear exam. ABSENT: bleeding, drainage Mouth exam: PRESENT: dry mucosa, neck supple Neck exam: ABSENT: JVD, thyromegaly, tracheal deviation Respiratory exam: PRESENT: decreased breath sounds - Moderately decreased breath sounds throughout all wilder consistent with moderate to severe COPD, prolonged expiratory phas - Prolonged expiratory phase in all wilder, symmetrical, wheezes - Expiratory wheezes present in all wilder Cardiovascular exam: PRESENT: RRR. ABSENT: clicks, gallop, rubs Pulses: PRESENT: normal radial pulses, normal dorsalis pedis pul Vascular exam: PRESENT: normal capillary refill. ABSENT: pallor GI/Abdominal exam: PRESENT: normal bowel sounds, soft Rectal exam: PRESENT: deferred Extremities exam: ABSENT: joint swelling, pedal edema Musculoskeletal exam: ABSENT: deformity, dislocation Neurological exam: PRESENT: alert, oriented to person, oriented to place, oriented to time, oriented to situation, CN II-XII grossly intact. ABSENT: motor sensory deficit Psychiatric exam: PRESENT: appropriate affect, normal mood Skin exam: PRESENT: dry, intact, warm. ABSENT: jaundice, rash, urticaria Results Laboratory Results: 09/17/18 23:50 09/17/18 23:50 09/17/18 09/17/18 09/17/18 23:50 23:50 23:50 WBC 4.6 RBC 4.98 Hgb 12.0 Hct 39.8 MCV 80 MCH 24.0 L MCHC 30.1 L RDW 21.7 H Plt Count 111 L Seg Neutrophils % 63.9 Lymphocytes % 26.1 Monocytes % 7.4 Eosinophils % 2.2 Basophils % 0.4 Absolute Neutrophils 2.9 Absolute Lymphocytes 1.2 Absolute Monocytes 0.3 Absolute Eosinophils 0.1 Absolute Basophils 0.0 VBG pH Cancelled VBG pCO2 Cancelled VBG HCO3 Cancelled VBG Base Excess Cancelled Sodium 141.6 Potassium 3.8 Chloride 102 Carbon Dioxide 34 H Anion Gap 6 BUN 24 H Creatinine 0.98 Est GFR ( Amer) > 60 Est GFR (Non-Af Amer) 57 L Glucose 162 H Calcium 8.9 Total Bilirubin 0.7 AST 9 L ALT 16 Alkaline Phosphatase 117 Total Protein 5.4 L Albumin 3.3 L 09/18/18 00:45 WBC RBC Hgb Hct MCV MCH MCHC RDW Plt Count Seg Neutrophils % Lymphocytes % Monocytes % Eosinophils % Basophils % Absolute Neutrophils Absolute Lymphocytes Absolute Monocytes Absolute Eosinophils Absolute Basophils VBG pH 7.35 VBG pCO2 63.4 H VBG HCO3 34.0 H VBG Base Excess 6.3 Sodium Potassium Chloride Carbon Dioxide Anion Gap BUN Creatinine Est GFR ( Amer) Est GFR (Non-Af Amer) Glucose Calcium Total Bilirubin AST ALT Alkaline Phosphatase Total Protein Albumin Impressions: Chest X-Ray 09/17/18 23:44 IMPRESSION: 1. Patchy bibasilar opacification likely reflecting atelectasis and/or fibrosis. Underlying inflammatory changes are not entirely excluded. 2. Otherwise, the lungs are grossly clear. Assessment and Plan - Diagnosis (1) Acute and chronic respiratory failure with hypoxia Is this a current diagnosis for this admission?: Yes Plan: Patient be treated with supplemental oxygen as required to maintain an adequate oxygen saturation. Her O2 sat will be measured frequently during her hospital course. Noninvasive airway pressure support devices will be used as required. (2) COPD exacerbation Is this a current diagnosis for this admission?: Yes Plan: Patient will be treated with an aggressive pulmonary toilet utilizing Xopenex, Atrovent, Pulmicort and Mucomyst. She will receive IV Solu-Medrol and airway support/oxygen supplementation as required. Daily CBCs, metabolic profiles and magnesium levels will be obtained. (3) Obstructive sleep apnea Is this a current diagnosis for this admission?: Yes Plan: Patient will be treated with nighttime BiPAP/CPAP for adequate oxygenation maintained during sleep. (4) Tobacco use disorder, severe, dependence Is this a current diagnosis for this admission?: Yes Plan: Smoking cessation has been advised and counseled briefly at the bedside. A nicotine patch is available for the patient's use as desired. (5) CHF (congestive heart failure) Qualifiers: Heart failure type: unspecified Heart failure chronicity: unspecified Qualified Code(s): I50.9 - Heart failure, unspecified Is this a current diagnosis for this admission?: Yes Plan: The patient will continue her current CHF medications. A BNP will be obtained for baseline. (6) Diabetes mellitus type 2 in nonobese Is this a current diagnosis for this admission?: Yes Plan: Patient will be continued on her current diabetic therapy and a diabetic diet. Before meals and at bedtime blood sugars will be obtained and sliding scale insulin will be used for hyperglycemia. A hypoglycemic protocol will be placed. - Time Time Spent with patient: 15-24 minutes Smoking Cessation Education: 3 to 10 minutes Medications reviewed and adjusted accordingly: Yes Anticipated discharge: Home - Inpatient Certification Based on my medical assessment, after consideration of the patient's comorbidities, presenting symptoms, or acuity I expect that the services needed warrant INPATIENT care.: Yes I certify that my determination is in accordance with my understanding of Medicare's requirements for reasonable and necessary INPATIENT services [42 CFR 412.3e].: Yes Medical Necessity: Failure to Improve With Outpatient Therapy, Significant Comorbidiites Make Outpatient Treatment Too Risky, Need Close Monitoring Due to Risk of Patient Decompensation, Need for Nebulizer Therapy and Monitoring of Response, Risk of Complication if Not Cared For in Hospital
--- NOTE | 2018-09-18 06:55 | ADVANCED CARE ---
- Diagnosis (1) Acute and chronic respiratory failure with hypoxia Diagnosis Current: Yes (2) COPD exacerbation Diagnosis Current: Yes (3) Obstructive sleep apnea Diagnosis Current: Yes (4) Tobacco use disorder, severe, dependence Diagnosis Current: Yes (5) CHF (congestive heart failure) Diagnosis Current: Yes (6) Diabetes mellitus type 2 in nonobese Diagnosis Current: Yes Attendance: Patient by myself Resuscitation Status: Full Code Discussion: After brief discussion the patient is determined she wishes to be full code for resuscitation status during this admission. Saadia Clay has been designated as her surrogate medical decision-maker. Care Planning Goals: 1. Patient will be full CODE STATUS for this admission. 2. Saadia Clay is the patient's designated surrogate medical decision-maker. Document(s) Completed: The following entries will be made into the patient's permanent medical record, current medical record and current orders via EMR entry: 1. Patient will be full CODE STATUS for this admission. 2. Saadia Clay is the patient's designated surrogate medical decision-maker. Time Spent: 15-minutes
[2018-09-18 07:17] LABS: CREATINE KINASE MB 0.79 ng/mL (<4.55); TROPONIN I 0.022 ng/mL
[2018-09-18] MEDS: BUDESONIDE NEB 0.5 MG/2 ML AMPUL NEB SCH ×2 (08:09→19:28)
[2018-09-18] MEDS: IPRATROPIUM BROMIDE 0.02% NEB 0.5 MG/2.5 ML AMPUL NEB SCH ×3 (08:09→23:54)
[2018-09-18] MEDS: LEVALBUTEROL HCL NEB 1.25 MG/3 ML AMPUL NEB SCH ×3 (08:09→23:54)
--- NOTE | 2018-09-18 08:17 | PDOC PROGRESS REPORT ---
Subjective Progress Note for:: 09/18/18 Reason For Visit: ACUTE EXACERBATION OF COPD Physical Exam Vital Signs: Temp Pulse Resp BP Pulse Ox 97.6 F 102 H 20 114/48 L 92 09/18/18 05:24 09/18/18 05:24 09/18/18 05:35 09/18/18 05:24 09/18/18 05:35 Intake & Output 09/17/18 09/18/18 09/19/18 06:59 06:59 06:59 Weight 86.6 kg General appearance: PRESENT: no acute distress, well-developed, well-nourished Head exam: PRESENT: atraumatic, normocephalic Eye exam: PRESENT: conjunctiva pink, EOMI, PERRLA. ABSENT: scleral icterus Ear exam: PRESENT: normal external ear exam Mouth exam: PRESENT: moist, tongue midline Neck exam: ABSENT: carotid bruit, JVD, lymphadenopathy, thyromegaly Respiratory exam: PRESENT: accessory muscle use, decreased breath sounds, tachypnea. ABSENT: rales, rhonchi, wheezes Cardiovascular exam: PRESENT: RRR. ABSENT: diastolic murmur, rubs, systolic murmur Pulses: PRESENT: normal dorsalis pedis pul Vascular exam: PRESENT: normal capillary refill GI/Abdominal exam: PRESENT: normal bowel sounds, soft. ABSENT: distended, guarding, mass, organolmegaly, rebound, tenderness Rectal exam: PRESENT: deferred Extremities exam: PRESENT: full ROM. ABSENT: calf tenderness, clubbing, pedal edema Neurological exam: PRESENT: alert, awake, oriented to person, oriented to place, oriented to time, oriented to situation, CN II-XII grossly intact. ABSENT: motor sensory deficit Psychiatric exam: PRESENT: appropriate affect, normal mood. ABSENT: homicidal ideation, suicidal ideation Skin exam: PRESENT: dry, intact, warm. ABSENT: cyanosis, rash Results Laboratory Results: 09/17/18 23:50 09/17/18 23:50 09/17/18 09/17/18 09/17/18 23:50 23:50 23:50 WBC 4.6 RBC 4.98 Hgb 12.0 Hct 39.8 MCV 80 MCH 24.0 L MCHC 30.1 L RDW 21.7 H Plt Count 111 L Seg Neutrophils % 63.9 Lymphocytes % 26.1 Monocytes % 7.4 Eosinophils % 2.2 Basophils % 0.4 Absolute Neutrophils 2.9 Absolute Lymphocytes 1.2 Absolute Monocytes 0.3 Absolute Eosinophils 0.1 Absolute Basophils 0.0 VBG pH Cancelled VBG pCO2 Cancelled VBG HCO3 Cancelled VBG Base Excess Cancelled Sodium 141.6 Potassium 3.8 Chloride 102 Carbon Dioxide 34 H Anion Gap 6 BUN 24 H Creatinine 0.98 Est GFR ( Amer) > 60 Est GFR (Non-Af Amer) 57 L Glucose 162 H Calcium 8.9 Total Bilirubin 0.7 AST 9 L ALT 16 Alkaline Phosphatase 117 Total Protein 5.4 L Albumin 3.3 L 09/18/18 00:45 WBC RBC Hgb Hct MCV MCH MCHC RDW Plt Count Seg Neutrophils % Lymphocytes % Monocytes % Eosinophils % Basophils % Absolute Neutrophils Absolute Lymphocytes Absolute Monocytes Absolute Eosinophils Absolute Basophils VBG pH 7.35 VBG pCO2 63.4 H VBG HCO3 34.0 H VBG Base Excess 6.3 Sodium Potassium Chloride Carbon Dioxide Anion Gap BUN Creatinine Est GFR ( Amer) Est GFR (Non-Af Amer) Glucose Calcium Total Bilirubin AST ALT Alkaline Phosphatase Total Protein Albumin 09/17/18 09/17/18 09/18/18 23:50 23:50 06:40 Creatine Kinase 21 L 26 L CK-MB (CK-2) 0.73 Troponin I 0.033 NT-Pro-B Natriuret Pep 1570 H 09/18/18 06:40 Creatine Kinase CK-MB (CK-2) 0.79 Troponin I 0.022 NT-Pro-B Natriuret Pep Impressions: Chest X-Ray 09/17/18 23:44 IMPRESSION: 1. Patchy bibasilar opacification likely reflecting atelectasis and/or fibrosis. Underlying inflammatory changes are not entirely excluded. 2. Otherwise, the lungs are grossly clear. Assessment and Plan - Diagnosis (1) COPD exacerbation Is this a current diagnosis for this admission?: Yes Plan: Patient will be treated with an aggressive pulmonary toilet utilizing Xopenex, Atrovent, Pulmicort and Mucomyst. She will receive IV Solu-Medrol and airway support/oxygen supplementation as required. Daily CBCs, metabolic profiles and magnesium levels will be obtained. 09/18/2018-continue current therapy. Patient did report chronic pain issues requiring Percocet. Patient admitted this morning at 6 AM. Continue to follow and make changes plan of care as appropriate. - Time Time Spent with patient: Less than 15 minutes
[2018-09-18] MEDS: ACETYLCYSTEINE 20% SOLN 800 MG/4 ML VIAL.NEB NEB SCH ×2 (08:40→19:28)
[2018-09-18] MEDS: METHYLPREDNISOLONE INJ 40 MG/1 ML SDV IV SCH ×2 (09:29→22:00)
[2018-09-18] MEDS: DOCUSATE SODIUM 100 MG CAPSULE PO SCH ×2 (09:30→17:36)
[2018-09-18] MEDS: OXYCODONE-ACETAMINOPHEN 5-325 MG TABLET PO PRN ×3 (09:30→22:00)
[2018-09-18] MEDS ORDERED: INSULIN GLARGINE,HUM.REC.ANLOG 1,000 UNIT/10 ML VIAL SUBCUT SCH (10:00)
[2018-09-18] MEDS: INSULIN REG, HUMAN 100 UNIT/ML 3 ML VIAL (PYX) SUBCUT PRN ×4 (11:40→22:09)
[2018-09-18] MEDS ORDERED: INSULIN GLARGINE,HUM.REC.ANLOG 1,000 UNIT/10 ML VIAL (PYX) SUBCUT ONE (12:00)
[2018-09-18 12:42] LABS: CREATINE KINASE MB 1.16 ng/mL (<4.55); TROPONIN I 0.015 ng/mL
[2018-09-19] MEDS: HEPARIN SOD (PORCINE) 5,000 UNIT/ML 1 ML VIAL SUBCUT SCH (05:40)
[2018-09-19] MEDS: PANTOPRAZOLE SODIUM 40 MG TABLET.DR PO SCH ×2 (05:41→05:46)
[2018-09-19] MEDS: OXYCODONE-ACETAMINOPHEN 5-325 MG TABLET PO PRN (05:46)
[2018-09-19 06:07] LABS: HEMATOCRIT 38.1 % (36.0-47.0); HEMOGLOBIN 11.5 g/dL (12.0-15.5); MEAN CORPUSCULAR HEMOGLOBIN 24.1 pg (27.0-33.4); MEAN CORPUSCULAR HGB CONC 30.2 g/dL (32.0-36.0); MEAN CORPUSCULAR VOLUME 80 fl (80-97); PLATELET COUNT 108 10^3/uL (150-450); RED BLOOD COUNT 4.77 10^6/uL (3.72-5.28); RED CELL DISTRIBUTION WIDTH 22.1 % (11.5-14.0); WHITE BLOOD COUNT 5.7 10^3/uL (4.0-10.5)
[2018-09-19 06:24] LABS: ANION GAP 7 (5-19); BLOOD UREA NITROGEN 28 mg/dL (7-20); CALCIUM 9.1 mg/dL (8.4-10.2); CARBON DIOXIDE 32 mmol/L (22-30); CHLORIDE 99 mmol/L (98-107); GLUCOSE 221 mg/dL (75-110); POTASSIUM 4.2 mmol/L (3.6-5.0)
[2018-09-19 08:02] VITALS: BP 123/91
[2018-09-19] MEDS: NALBUPHINE HCL INJ 10 MG/1 ML AMPULE IV PRN (08:11)
[2018-09-19] MEDS: BUDESONIDE NEB 0.5 MG/2 ML AMPUL NEB SCH (08:12)
[2018-09-19] MEDS: LEVALBUTEROL HCL NEB 1.25 MG/3 ML AMPUL NEB SCH (08:12)
[2018-09-19] MEDS: INSULIN REG, HUMAN 100 UNIT/ML 3 ML VIAL (PYX) SUBCUT PRN (08:12)
[2018-09-19] MEDS: IPRATROPIUM BROMIDE 0.02% NEB 0.5 MG/2.5 ML AMPUL NEB SCH (08:12)
[2018-09-19] MEDS: ACETYLCYSTEINE 20% SOLN 800 MG/4 ML VIAL.NEB NEB SCH (08:13)
--- NOTE | 2018-09-19 08:53 | PDOC DISCHARGE SUMMARY ---
General - Admit/Disc Date/PCP Admission Date/Primary Care Provider: 09/18/18 05:00 MARGRET SCOTT MD Discharge Date: 09/19/18 - Discharge Diagnosis (1) COPD exacerbation Is this a current diagnosis for this admission?: Yes - Additional Information Resuscitation Status: Full Code Discharge Diet: As Tolerated Discharge Activity: Activity As Tolerated Prescriptions: Nicotine [Nicotine Patch] 1 each TD DAILY #30 patch.[email or web address] Prednisone 10 mg PO DAILY 12 Days #42 tablet Home Medications: Albuterol Sulfate [Proair HFA Inhalation Aerosol 8.5 gm MDI] 2 puff HE Q6HP PRN 09/02/18 Allopurinol [Zyloprim 300 mg Tablet] 300 mg PO DAILY 09/02/18 Atorvastatin Calcium [Lipitor 80 mg Tablet] 80 mg PO QHS 09/02/18 Bupropion HCl [Wellbutrin Xl 150 mg 24hr Tablet] 150 mg PO DAILY 09/02/18 Fluticasone Propionate [Flonase Nasal [place] 50 Mcg/[place] 16 gm] 1 spray NASL DAILY 09/02/18 Fluticasone/Salmeterol [Advair 500-50 Diskus 14 Dose/Diskus] 1 puff IH Q12 09/02/18 Insulin Glargine,Hum.rec.anlog [Lantus Insulin 100 Unit/1 ml 10 ml] 35 units SQ DAILY 09/02/18 Insulin Lispro [Humalog Kwikpen U-100] See Protocol SQ MEALS 09/02/18 Magnesium Oxide [Mag-Ox 400 mg Tablet] 400 mg PO BID 09/02/18 Omeprazole 40 mg PO DAILY 09/02/18 Oxycodone HCl [Oxycodone HCl 10 MG Tablet] 10 mg PO Q6HP PRN 09/02/18 Potassium Chloride [Klor-Con 10 Meq Capsule ER] 10 meq PO DAILY 09/02/18 Pregabalin [Lyrica] 150 mg PO BID 09/02/18 Sennosides [Senna] 2 tab PO QHS 09/02/18 Roflumilast [Daliresp 500 mcg Tablet] 500 mcg PO DAILY 09/18/18 Torsemide 200 mg PO DAILY 09/18/18 Nicotine [Nicotine Patch] 1 each TD DAILY #30 patch.[email or web address] 09/19/18 Prednisone 10 mg PO DAILY 12 Days #42 tablet 09/19/18 History of Present Illness Patient complains of: No complaints this a.m. History of Present Illness: TAI FAN is a 63 year old female presented to ER 2 days ago with acute exacerbation of chronic COPD and tobacco abuse. Hospital Course Hospital Course: Patient was admitted to medical surgical floor placed on Solu-Medrol IV, DuoNeb's and given a nicotine patch. Patient lives at home with no air conditioning in the summer is been extremely hot. Patient continues smoke 1 to 2 cigarettes a day. After discussion with patient is morning she is improved sufficiently return home. Patient has guaranteed me she will not return home and smoke at this time. I will prescribe patient nicotine patches 14 mg topical daily #30. I also sent patient home on prednisone taper pack 60 mg x 2 days 50 mg x 2 days and so forth until gone. Patient will return home rest sit up from a fan until she can obtain air conditioning. Patient will follow with primary care this week. Physical Exam Vital Signs: Temp Pulse Resp BP Pulse Ox 98.4 F 89 20 123/91 H 92 09/19/18 08:01 09/19/18 08:01 09/19/18 08:01 09/19/18 08:01 09/19/18 08:01 Intake & Output 09/18/18 09/19/18 09/20/18 06:59 06:59 06:59 Intake Total 1953 Balance 1953 Weight 86.6 kg 87.2 kg General appearance: PRESENT: no acute distress, well-developed, well-nourished Head exam: PRESENT: atraumatic, normocephalic Eye exam: PRESENT: conjunctiva pink, EOMI, PERRLA. ABSENT: scleral icterus Ear exam: PRESENT: normal external ear exam Mouth exam: PRESENT: moist, tongue midline Neck exam: ABSENT: carotid bruit, JVD, lymphadenopathy, thyromegaly Respiratory exam: PRESENT: clear to auscultation antonio, symmetrical, unlabored. ABSENT: rales, rhonchi, wheezes Cardiovascular exam: PRESENT: RRR. ABSENT: diastolic murmur, rubs, systolic murmur Pulses: PRESENT: normal dorsalis pedis pul Vascular exam: PRESENT: normal capillary refill GI/Abdominal exam: PRESENT: normal bowel sounds, soft. ABSENT: distended, guarding, mass, organolmegaly, rebound, tenderness Rectal exam: PRESENT: deferred Extremities exam: PRESENT: full ROM. ABSENT: calf tenderness, clubbing, pedal edema Neurological exam: PRESENT: alert, awake, oriented to person, oriented to place, oriented to time, oriented to situation, CN II-XII grossly intact. ABSENT: motor sensory deficit Psychiatric exam: PRESENT: appropriate affect, normal mood. ABSENT: homicidal ideation, suicidal ideation Skin exam: PRESENT: dry, intact, warm. ABSENT: cyanosis, rash Results Laboratory Results: 09/19/18 05:39 09/19/18 05:39 09/19/18 09/19/18 05:39 05:39 WBC 5.7 RBC 4.77 Hgb 11.5 L Hct 38.1 MCV 80 MCH 24.1 L MCHC 30.2 L RDW 22.1 H Plt Count 108 L Sodium 138.3 Potassium 4.2 Chloride 99 Carbon Dioxide 32 H Anion Gap 7 BUN 28 H Creatinine 1.00 Est GFR ( Amer) > 60 Est GFR (Non-Af Amer) 56 L Glucose 221 H Calcium 9.1 Magnesium 2.3 09/17/18 09/17/18 09/18/18 23:50 23:50 06:40 Creatine Kinase 21 L 26 L CK-MB (CK-2) 0.73 Troponin I 0.033 NT-Pro-B Natriuret Pep 1570 H 09/18/18 09/18/18 09/18/18 06:40 11:50 11:50 Creatine Kinase 33 CK-MB (CK-2) 0.79 1.16 Troponin I 0.022 0.015 NT-Pro-B Natriuret Pep Impressions: Chest X-Ray 09/17/18 23:44 IMPRESSION: 1. Patchy bibasilar opacification likely reflecting atelectasis and/or fibrosis. Underlying inflammatory changes are not entirely excluded. 2. Otherwise, the lungs are grossly clear. Qualifiers - * PATIENT BEING DISCHARGED WITH ANY OF THE FOLLOWING DIAGNOSIS: No Acute Heart Failure - Is this a Heart Failure Patient?: No Plan Time Spent: Greater than 30 Minutes
--- NOTE | 2018-09-19 08:55 | ADVANCED CARE ---
- Diagnosis (1) COPD exacerbation Diagnosis Current: Yes (2) Tobacco abuse Diagnosis Current: Yes Attendance: Myself and patient Resuscitation Status: Full Code Discussion: Long discussion about benefits of tobacco cessation. Also about home plan including continued nebulizer treatments and prednisone. Patient will return home and stay as cool as possible she has no air conditioning at this time. She will stop smoking. She will continue prednisone and nebulizers. Patient also on Daliresp at this time. Care Planning Goals: 1-no further acute attacks of her chronic COPD 2-continue steroids 3-continue all inhalers at home. 4-tobacco cessation. Nicotine patches daily Time Spent: 15 minutes
[2018-09-19] MEDS ORDERED: INSULIN GLARGINE,HUM.REC.ANLOG 1,000 UNIT/10 ML VIAL SUBCUT SCH (10:00)
== END 2018-09-19 09:28 | disposition home or self-care (01) | DRG 190 ==
LOC: ER 23:35 → EH 09-18 05:00 → 5 09-18 06:00
PROVIDERS: ADMIT Emergency Medicine; ATTEND Emergency Medicine
DX: J44.1 Chronic obstructive pulmonary disease with (acute) exacerbation (principal); J96.21 Acute and chronic respiratory failure with hypoxia; G47.33 Obstructive sleep apnea (adult) (pediatric); E11.65 Type 2 diabetes mellitus with hyperglycemia; I50.9 Heart failure, unspecified; Z79.4 Long term (current) use of insulin; F17.210 Nicotine dependence, cigarettes, uncomplicated; I11.0 Hypertensive heart disease with heart failure; Z88.2 Allergy status to sulfonamides; M10.9 Gout, unspecified
CPT/HCPCS: 36415; 71046; 80048; 80053; 82550; 82553; 82803; 82962; 83735; 83880; 84484; 85025; 85027; 94640; 94660; 99285; J1644; J1815; J2300; J2920; J3490

== ENCOUNTER 2018-10-19 15:20 | Emergency (ER) | payer MEDICAID ==
[2018-10-19 16:01] LABS: ABSOLUTE EOSINOPHILS # (AUTO) 0.1 10^3/uL (0.0-0.6); ABSOLUTE LYMPHOCYTES (AUTO) 0.6 10^3/uL (0.5-4.7); ABSOLUTE MONOCYTES (AUTO) 0.3 10^3/uL (0.1-1.4); ABSOLUTE NEUT (AUTO) 2.5 10^3/uL (1.7-8.2); BASOPHILS % (AUTO) 0.6 % (0-2); EOSINOPHILS % (AUTO) 2.8 % (0-6); HEMATOCRIT 37.1 % (36.0-47.0); HEMOGLOBIN 11.1 g/dL (12.0-15.5); LYMPHOCYTES % (AUTO) 18.2 % (13-45); MEAN CORPUSCULAR HEMOGLOBIN 23.2 pg (27.0-33.4); MEAN CORPUSCULAR HGB CONC 29.9 g/dL (32.0-36.0); MEAN CORPUSCULAR VOLUME 78 fl (80-97); MONOCYTES % (AUTO) 7.6 % (3-13); PLATELET COUNT 131 10^3/uL (150-450); RED BLOOD COUNT 4.78 10^6/uL (3.72-5.28); RED CELL DISTRIBUTION WIDTH 21.6 % (11.5-14.0); SEGMENTED NEUTROPHILS % (AUTO) 70.8 % (42-78); TOTAL CELLS COUNTED % (AUTO) 100 %; WHITE BLOOD COUNT 3.5 10^3/uL (4.0-10.5)
[2018-10-19 16:14] LABS: ALBUMIN 2.8 g/dL (3.5-5.0); ALKALINE PHOSPHATASE 87 U/L (38-126); ANION GAP 5 (5-19); ASPARTATE AMINO TRANSFERASE 22 U/L (14-36); BILIRUBIN,DIRECT 0.3 mg/dL (0.0-0.4); BILIRUBIN,TOTAL 0.6 mg/dL (0.2-1.3); BLOOD UREA NITROGEN 30 mg/dL (7-20); CALCIUM 8.1 mg/dL (8.4-10.2); CARBON DIOXIDE 31 mmol/L (22-30); CHLORIDE 103 mmol/L (98-107); GLUCOSE 80 mg/dL (75-110); POTASSIUM 4.8 mmol/L (3.6-5.0)
[2018-10-19] MEDS ORDERED: OXYCODONE-ACETAMINOPHEN 5-325 MG TABLET PO ONE (17:53)
--- NOTE | 2018-10-19 18:04 | ER Document Report ---
ED Extremity Problem, Lower - General Chief Complaint: Leg Swelling Stated Complaint: LEG PAIN Time Seen by Provider: 10/19/18 16:45 Primary Care Provider: MARGRET SCOTT MD [Primary Care Provider] - Follow up as needed Notes: Patient said that she laid down for a nap and when she awakened and got up, she could not walk because her lower legs hurt so badly. She has had chronic swelling of both lower extremities and chronic erythema of both lower extremities. She says her legs have been like that forever. The to concern she has today are the fact that it so painful in both of her legs and that they seem to have formed a little blisters or vesicles of clear fluid that are opening and weeping clear fluid. Patient has not had any fevers. Patient does acknowledge that she was on her feet for a long time yesterday. Patient has concerns about a spot in her lower buttock region. Where she is indicating is where the cleavage between the 2 but cheeks come together dorsally and expresses concern about discomfort there. I examined the area thoroughly and it only looks erythematous and perhaps secondarily yeast infection. There is no evidence of any abscess or cysts or anything that needs drainage. Patient is an insulin-dependent diabetic. She has history of CHF. Still smokes a few cigarettes daily. On [place] daily. Has not missed the dose. TRAVEL OUTSIDE OF THE [place] IN LAST 30 DAYS: No - Related Data Allergies/Adverse Reactions: Sulfa (Sulfonamide Antibiotics) Allergy (Verified 09/17/18 23:53) Past Medical History - Social History Smoking Status: Current Every Day Smoker Family History: COPD, Hypertension Patient has suicidal ideation: No Patient has homicidal ideation: No - Past Medical History Cardiac Medical History: Reports: Hx Congestive Heart Failure, Hx Hypertension Pulmonary Medical History: Reports: Hx Bronchitis, Hx COPD - O2 dependent COPD, Hx Pneumonia, Hx Respiratory Failure, Hx Sleep Apnea Endocrine Medical History: Reports: Hx Diabetes Mellitus Type 1, Hx Diabetes Mellitus Type 2 Musculoskeletal Medical History: Reports Hx Gout Psychiatric Medical History: Reports: Hx Depression Past Surgical History: Reports: Hx Section, Hx Hysterectomy, Hx Orthopedic Surgery - Bilateral carpal tunnel surgery, back surgery., Hx Vascular Surgery - Bilateral carotid endarterectomies - Immunizations Hx Diphtheria, Pertussis, Tetanus Vaccination: Yes Hx Pneumococcal Vaccination: 02/23/09 Review of Systems - Review of Systems Notes: CONSTITUTIONAL : Denies fever. CARDIOVASCULAR: Denies chest pain. RESPIRATORY: Denies cough, chest congestion, or shortness of breath. GASTROINTESTINAL: Denies abdominal pain or nausea, vomiting, or diarrhea. GENITOURINARY: Denies difficulty or painful urinating, urinary frequency, blood in urine. Physical Exam - Vital signs Vitals: Temp Pulse Resp BP 98.2 F 96 22 H 108/49 L 10/19/18 15:29 10/19/18 15:29 10/19/18 15:29 10/19/18 15:29 Interpretation: Normal Notes: PHYSICAL EXAMINATION: GENERAL: Well-appearing, no acute distress. Afebrile. HEAD: Atraumatic, normocephalic. NECK: Normal range of motion, supple. LUNGS: Breath sounds clear and equal bilaterally. HEART: Regular rate and rhythm without murmurs heard. ABDOMEN: Soft, nontender. No guarding or rebound or masses. Skin: Bilateral erythema from just below the knees downward to the feet bilatera lly. Tender to touch all over. Small little vesicles bilaterally which are breaking open and weeping clear lymphatic fluid. No exudates. No pain posteriorly and negative Homans bilaterally. Has never had problems with blood clots. Back: Patient has an area of erythema at the superior aspect of the junction of the 2 buttocks where the cleavage is located. There is some erythema with some superimposed white material which may be yeast. There is absolutely no swelling anywhere. No fluctuance noted. No masses. Nothing that requires incision and drainage, etc. Course - Re-evaluation Re-evalutation: 10/19/18 18:40 Labs are all essentially normal. White count is normal. Electrolytes are normal. - Vital Signs Vital signs: Temp Pulse Resp BP Pulse Ox 98.1 F 96 22 H 108/49 L 10/19/18 17:54 10/19/18 15:29 10/19/18 15:29 10/19/18 15:29 - Laboratory Result Diagrams: 10/19/18 15:40 10/19/18 15:40 Laboratory results interpreted by me: 10/19/18 10/19/18 15:40 15:40 WBC 3.5 L Hgb 11.1 L MCV 78 L MCH 23.2 L MCHC 29.9 L RDW 21.6 H Plt Count 131 L Carbon Dioxide 31 H BUN 30 H Est GFR ( Amer) 53 L Est GFR (MDRD) Non-Af 44 L Calcium 8.1 L Total Protein 5.0 L Albumin 2.8 L Discharge - Discharge Clinical Impression: Cellulitis of leg, left, Cellulitis of right leg, Lymphedema, COPD (chronic obstructive pulmonary disease) Condition: Stable Disposition: HOME, SELF-CARE Additional Instructions: Cellulitis You have an infection of your skin and underlying soft tissues called cellulitis. This is due to bacteria, which can enter through any break in the skin, or even through an irritated hair follicle. Untreated, cellulitis will usually worsen. Antibiotics are required. Usually, warm packs or warm soaks, and elevation of the infected area are recommended. You should start getting better within 24 to 36 hours. Most infections respond quickly to the right medication. Follow-up care is important, however, to check for abscess (boil) formation, unsuspected foreign body, or resistant infection. If you develop fever, chills, or if the area of infection is becoming rapidly more swollen or painful, call the doctor at once. ANTIBIOTIC THERAPY: You have been given an antibiotic prescription. It's important that you take all the medication, unless instructed otherwise by your physician. Failure to complete the entire course can result in relapse of your condition. Common side effects of antibiotics include nausea, intestinal cramping, or diarrhea. Women may develop vaginal yeast infections, and babies can get yeast (thrush) in the mouth following the use of antibiotics. Contact your physician if you develop significant side effects from this medication. Allergy to this antibiotic can result in hives, wheezing, faintness, or itching. If symptoms of allergy occur, stop the medication and call the doctor. ORAL NARCOTIC MEDICATION: You have been given a prescription for pain control. This medication is a narcotic. It's best taken with food, as nausea can result if taken on an empty stomach. Don't operate machinery or drive within six hours of taking this medication. Do not combine this medicine with alcohol, or with any medication which can cause sedation (such as cold tablets or sleeping pills) unless you get permission from the physician. Narcotics tend to cause constipation. If possible, drink plenty of fluids and eat a diet high in fiber and fruits. Please be aware that prescription narcotics also have the potential for abuse. People become addicted to these medications because of the general sense of wellbeing that they induce. This feeling along with a significant reduction in tension, anxiety, and aggression provides a stimulating seductive quality to these drugs. Once your pain is under control, we encourage you to discard your unused narcotics. You have been given a prescription for an antifungal medication called nystatin. FOLLOW-UP CARE: If you have been referred to a physician for follow-up care, call the physicians office for an appointment as you were instructed or within the next two days. If you experience worsening or a significant change in your symptoms, notify the physician immediately or return to the Emergency Department at any time for re-evaluation. Return if you have worsening swelling and pain, fever, etc. Elevate your legs as much as possible and do not stand up for long periods at a time. Prescriptions: Oxycodone HCl/Acetaminophen [Percocet 5-325 mg Tablet] 1 tab PO Q6HP PRN #12 tablet PRN Reason: Cephalexin [Cephalexin 250 MG Tablet] 1 tab PO QID #30 tablet Nystatin [Mycostatin Cream 15 gm] 1 applic TP BID #15 gm Referrals: MARGRET SCOTT MD [Primary Care Provider] - Follow up as needed
--- NOTE | 2018-10-19 19:02 | EKG REPORT ---
SEVERITY:- ABNORMAL ECG - SINUS RHYTHM MULTIPLE ATRIAL PREMATURE COMPLEXES PROBABLE LEFT ATRIAL ABNORMALITY : Confirmed by: Carlos Carmen MD 19-Oct-2018 19:01:40
[2018-10-19 19:06] VITALS: BP 125/58
== END 2018-10-19 18:30 | disposition home or self-care (01) ==
LOC: ER 15:20
DX: L03.116 Cellulitis of left lower limb (principal); L03.115 Cellulitis of right lower limb; I89.0 Lymphedema, not elsewhere classified; J44.9 Chronic obstructive pulmonary disease, unspecified; M79.89 Other specified soft tissue disorders; M79.604 Pain in right leg; M79.605 Pain in left leg; M54.5 Low back pain; E11.9 Type 2 diabetes mellitus without complications; Z79.4 Long term (current) use of insulin; I11.0 Hypertensive heart disease with heart failure; I50.9 Heart failure, unspecified; F17.210 Nicotine dependence, cigarettes, uncomplicated; Z79.899 Other long term (current) drug therapy; Z99.81 Dependence on supplemental oxygen
CPT/HCPCS: 36415; 80053; 85025; 93005; 93010; 99284

== ENCOUNTER 2018-10-23 01:08 | Emergency (ER) | payer MEDICAID ==
[2018-10-23] MEDS ORDERED: NORMAL SALINE 1000 ML 500 ML IV ONE (02:11)
[2018-10-23] MEDS ORDERED: OXYCODONE HCL SR 10 MG TABLET PO ONE (02:12)
[2018-10-23 02:14] LABS: ALBUMIN 2.9 g/dL (3.5-5.0); ALKALINE PHOSPHATASE 112 U/L (38-126); ANION GAP 6 (5-19); ASPARTATE AMINO TRANSFERASE 14 U/L (14-36); BILIRUBIN,DIRECT 0.3 mg/dL (0.0-0.4); BILIRUBIN,TOTAL 0.8 mg/dL (0.2-1.3); BLOOD UREA NITROGEN 24 mg/dL (7-20); CALCIUM 8.6 mg/dL (8.4-10.2); CARBON DIOXIDE 29 mmol/L (22-30); CHLORIDE 106 mmol/L (98-107); GLUCOSE 132 mg/dL (75-110); POTASSIUM 4.8 mmol/L (3.6-5.0); TOTAL PROTEIN 5.2 g/dL (6.3-8.2)
--- NOTE | 2018-10-23 02:26 | RADIOLOGY REPORT (SQ) ---
XR CHEST 2 VIEWS EXAM DATE: 10/23/2018 1:29 AM CDT HISTORY: SOB. COMPARISON: 09/17/2018 FINDINGS: The heart size is enlarged. No consolidation, pleural effusion, or pneumothorax is seen. Bilateral interstitial changes are noted. Atelectasis at the lung bases. The bony thorax is intact. IMPRESSION: No evidence of acute cardiopulmonary disease.
[2018-10-23 03:00] LABS: ABSOLUTE EOSINOPHILS # (AUTO) 0.1 10^3/uL (0.0-0.6); ABSOLUTE LYMPHOCYTES (AUTO) 0.7 10^3/uL (0.5-4.7); ABSOLUTE MONOCYTES (AUTO) 0.3 10^3/uL (0.1-1.4); ABSOLUTE NEUT (AUTO) 2.3 10^3/uL (1.7-8.2); BASOPHILS % (AUTO) 1.3 % (0-2); EOSINOPHILS % (AUTO) 2.8 % (0-6); LYMPHOCYTES % (AUTO) 21.2 % (13-45); MONOCYTES % (AUTO) 9.4 % (3-13); PLATELET COUNT 117 10^3/uL (150-450); SEGMENTED NEUTROPHILS % (AUTO) 65.3 % (42-78); TOTAL CELLS COUNTED % (AUTO) 100 %; WHITE BLOOD COUNT 3.5 10^3/uL (4.0-10.5)
[2018-10-23] MEDS ORDERED: FENTANYL CITRATE INJ/PF 100 MCG/2 ML AMPUL IV ONE (04:08)
[2018-10-23 05:43] LABS: APPEARANCE,URINE CLEAR; BILIRUBIN,URINE NEGATIVE (NEGATIVE); COLOR,URINE YELLOW; GLUCOSE, URINE NEGATIVE (NEGATIVE); KETONES,URINE NEGATIVE (NEGATIVE); LEUKOCYTE ESTERASE,URINE NEGATIVE (NEGATIVE); NITRITE,URINE NEGATIVE (NEGATIVE); PROTEIN,URINE 30 mg/dL (NEGATIVE); URINE SPECIFIC GRAVITY 1.014; UROBILINOGEN,URINE NEGATIVE mg/dL (<2.0)
--- NOTE | 2018-10-23 06:06 | ER Document Report ---
ED General - General Chief Complaint: Shortness Of Breath Stated Complaint: SHORTNESS OF BREATHE Time Seen by Provider: 10/23/18 01:28 Primary Care Provider: MARGRET SCOTT MD [Primary Care Provider] - Follow up as needed Notes: Patient is a 63-year-old female presents to the emergency department with generalized respiratory distress. Patient's denying any chest pain or URI symptoms. States she typically is on oxygen 3 L/min at home all the time. States her typical oxygen saturation is around 90%. Patient also voices that her bilateral lower extremities hurt. Patient states she takes Bumex and has been taking it as prescribed. Patient states she does have a history of COPD and congestive heart failure. Patient voiced that bilateral lower extremities and her right hip also hurt. States she typically takes Percocet at home. States she was taking 10 mg tabs and presented to the emergency department a few days ago for generalized lower extremity pain. States the doctor "only gave me 5s" (meaning 5 mg tabs) of her Percocet yesterday. When I asked the patient specifically about her respiratory distress she states "oh yeah I guess I cannot breathe either." When I asked patient if she has any questions based on the labs I am going to order she states "are you going to be able to give me Percocet here in the emergency room?" Patient voices that she has had bilateral lower extremity pain for years. States she was seen at pain management but "hates pain management because they will not give you anything good." TRAVEL OUTSIDE OF THE [place] IN LAST 30 DAYS: No - Related Data Allergies/Adverse Reactions: Sulfa (Sulfonamide Antibiotics) Allergy (Verified 09/17/18 23:53) Past Medical History - General Information source: Patient - Social History Smoking Status: Never Smoker Family History: COPD, Hypertension Patient has suicidal ideation: No Patient has homicidal ideation: No - Past Medical History Cardiac Medical History: Reports: Hx Congestive Heart Failure, Hx Hypertension Denies: Hx Coronary Artery Disease Pulmonary Medical History: Reports: Hx Bronchitis, Hx COPD - O2 dependent COPD, Hx Pneumonia, Hx Respiratory Failure, Hx Sleep Apnea Denies: Hx Asthma Neurological Medical History: Denies: Hx Seizures Endocrine Medical History: Reports: Hx Diabetes Mellitus Type 1, Hx Diabetes Mellitus Type 2. Denies: Hx Hyperthyroidism, Hx Hypothyroidism Renal/ Medical History: Denies: Hx Peritoneal Dialysis GI Medical History: Denies: Hx Cirrhosis, Hx Hepatitis Musculoskeletal Medical History: Denies Hx Arthritis, Denies Hx Fibromyalgia, Re ports Hx Gout Skin Medical History: Denies Hx Eczema, Denies Hx Psoriasis Psychiatric Medical History: Reports: Hx Depression Infectious Medical History: Denies: Hx Hepatitis Past Surgical History: Reports: Hx Section, Hx Hysterectomy, Hx Orthopedic Surgery - Bilateral carpal tunnel surgery, back surgery., Hx Vascular Surgery - Bilateral carotid endarterectomies - Immunizations Hx Diphtheria, Pertussis, Tetanus Vaccination: Yes Hx Pneumococcal Vaccination: 02/23/09 Review of Systems - Review of Systems Constitutional: denies: Fever EENT: No symptoms reported Cardiovascular: See HPI Respiratory: See HPI Gastrointestinal: No symptoms reported Genitourinary: No symptoms reported Female Genitourinary: No symptoms reported Musculoskeletal: See HPI Skin: See HPI Hematologic/Lymphatic: No symptoms reported Neurological/Psychological: No symptoms reported Physical Exam - Vital signs Vitals: Pulse Ox 80 L 10/23/18 01:03 - Notes Notes: GENERAL: Alert, interacts well. No acute distress. HEAD: Normocephalic, atraumatic. EYES: Pupils equal, round, and reactive to light. Extraocular movements intact. ENT: Oral mucosa moist, tongue midline. NECK: Full range of motion. Supple. Trachea midline. LUNGS: Clear to auscultation bilaterally, no discernible wheezes, rales, or rhonchi. No respiratory distress. HEART: Regular rate and rhythm. No murmur ABDOMEN: Soft, non-tender. Non-distended. Bowel sounds present in all 4 quadrants. EXTREMITIES: Moves all 4 extremities spontaneously. normal radial and dorsalis pedis pulses bilaterally. No cyanosis. BACK: no cervical, thoracic, lumbar midline tenderness. No saddle anesthesia, normal distal neurovascular exam. NEUROLOGICAL: Alert and oriented x3. Normal speech. cranial nerves II through XII grossly intact PSYCH: Normal affect, normal mood. SKIN: Warm, dry, normal turgor. Bilateral erythema from just below the knees downward to the feet bilaterally. Tender to touch all over. Small little vesicles bilaterally which are breaking open and weeping clear lymphatic fluid. No exudates. No pain posteriorly and negative Homans bilaterally. Course - Re-evaluation Re-evalutation: 10/23/18 06:02 Upon reassessment of the patient she is sleeping in no apparent distress. Easily arousable to verbal stimuli. As I asked with patient how she feels she states "are you going to give me more Percocet to go home with?" In reviewing past notes it does appear that the patient has been here requesting narcotic pain management. There is a nursing note that states the patient will "be irate" if she does not get her Percocet. Patient's chest x-ray shows no signs of vascular congestion, no signs of pneumonia. Patient's BMP is noted to be 2980 which is down from past visits of 3420. Patient's lung sounds did not reveal any obvious signs of rales. Patient is not tachypneic and she is maintaining oxygen saturation around 92% with her 3 L oxygen via nasal cannula. Discussed with patient at length her need to follow-up with primary care provider for continued narcotic medications. Of also discussed she needs to take the antibiotics that were prescribed by the previous provider. Patient voices understanding and then states "if you are not going to give me anything I just want to go home." - Vital Signs Vital signs: Temp Pulse Resp BP Pulse Ox 99.1 F 15 139/67 H 93 10/23/18 01:32 10/23/18 05:00 10/23/18 01:05 10/23/18 05:00 - Laboratory Result Diagrams: 10/23/18 02:40 10/23/18 01:25 Laboratory results interpreted by me: 10/23/18 10/23/18 10/23/18 01:25 01:25 02:40 WBC 3.5 L Plt Count 117 L BUN 24 H Est GFR (MDRD) Non-Af 52 L Glucose 132 H NT-Pro-B Natriuret Pep 2980 H Total Protein 5.2 L Albumin 2.9 L Urine Protein Urine Blood 10/23/18 05:20 WBC Plt Count BUN Est GFR (MDRD) Non-Af Glucose NT-Pro-B Natriuret Pep Total Protein Albumin Urine Protein 30 H Urine Blood SMALL H Discharge - Discharge Clinical Impression: Shortness of breath Leg pain Qualifiers: Laterality: bilateral Qualified Code(s): M79.604 - Pain in right leg; M79.605 - Pain in left leg Condition: Stable Disposition: HOME, SELF-CARE Additional Instructions: As we discussed you have been seen and treated in the emergency department for your respiratory distress leg pain. Please follow-up with your primary care pr ovider in the next 24 to 48 hours. Please take medications that were prescribed to you at your previous visit. Please also return to the emergency room should you have any further concerns. Referrals: MARGRET SCOTT MD [Primary Care Provider] - Follow up as needed
[2018-10-23 07:11] VITALS: BP 134/86
--- NOTE | 2018-10-23 10:00 | EKG REPORT ---
SEVERITY:- ABNORMAL ECG - SINUS RHYTHM LEFT ATRIAL ABNORMALITY CONSIDER ANTERIOR INFARCT : Confirmed by: Carlos Carmen MD 23-Oct-2018 10:00:03
== END 2018-10-23 07:50 | disposition home or self-care (01) ==
LOC: ER 01:08
DX: R06.02 Shortness of breath (principal); M79.604 Pain in right leg; M79.605 Pain in left leg; Z99.81 Dependence on supplemental oxygen; I50.9 Heart failure, unspecified; I11.0 Hypertensive heart disease with heart failure; J44.9 Chronic obstructive pulmonary disease, unspecified; E11.9 Type 2 diabetes mellitus without complications
CPT/HCPCS: 93005; 99285; 96361; 96374; 36415; 85025; 80053; 81001; 84484; 83880; 71046; 93010; J3010; J3490; J7030